=== PATIENT | female | born 1945 | race Caucasian/White ===

== ENCOUNTER 2016-08-20 14:52 | Emergency (ER) | payer MEDICARE ==
[2016-08-20] MEDS ORDERED: Sodium Phosphate ADULT ENEMA* 118 ml bottle PR ONE (15:55)
--- NOTE | 2016-08-20 16:32 | RAD ---
INDICATION: Short of breath COMPARISON: June 21, 2016 TECHNIQUE: An AP portable view obtained at 1608 hours is submitted. FINDINGS: Bones/Soft Tissues: There are no acute bony findings. Cardiomediastinal: The heart is normal in size. The central pulmonary vessels and interstitium are prominent compatible with mild interstitial congestion. Lungs: There are no infiltrates. There is mild hyperinflation. Pleura: There are no pleural effusions. Other: None IMPRESSION: MILD INTERSTITIAL CONGESTION.
[2016-08-20 16:36] LABS: Hematocrit 36 % (35-47); Hemoglobin 11.2 g/dl (12.0-16.0); Mean Corpuscular HGB Conc 31 g/dl (31-36); Mean Corpuscular Hemoglobin 26 pg (27-31); Mean Corpuscular Volume 83 fL (80-97); Mean Platelet Volume 6 um3 (7.4-10.4); Red Blood Count 4.37 10^6/ul (4.0-5.4); Red Cell Distribution Width 22 % (10.5-15); White Blood Count 13.5 10^3/ul (3.5-10.8)
--- NOTE | 2016-08-20 16:38 | RAD ---
Indication: Constipation. Comparison: December 19, 2015 radiographs and November 07, 2015 CT. Technique: Supine and upright views of the abdomen. Report: Elevated lung volumes. Obese body habitus limits assessment. Negative for free air beneath the diaphragm. Large volume of stool throughout the colon. Suggestion of significant rectal distention with formed stool. No dilated small bowel loops evident to indicate obstruction. Calcified uterine fibroid noted LEFT of midline. Negative for mass effect. IMPRESSION: Large volume of retained stool in the colon with suggestion of significant rectal distention with stool.
[2016-08-20 16:53] LABS: Troponin I 0.02 ng/mL (<0.04)
[2016-08-20 16:59] LABS: Albumin 3.5 g/dL (3.2-5.2); BUN/Creatinine Ratio 21.9 (8-20); Calcium 9.1 mg/dL (8.6-10.3); EGFR African American 101.7 (>60); Globulin 2.9 g/dL (2-4); Potassium 3.6 mmol/L (3.5-5.0); Total Bilirubin 0.2 mg/dL (0.2-1.0); Total Protein 6.4 g/dL (6.4-8.9)
[2016-08-20] MEDS ORDERED: Albuterol/Ipratropium NEB.SOL* Albuterol 2.5 MG/Ipratropium 0.5 MG 3 ML INH ONE (17:35)
[2016-08-20] MEDS ORDERED: methylPREDNISolone 125 MG* 2 ML VIAL IV ONE (17:36)
[2016-08-20 18:37] VITALS: BP 139/72
--- NOTE | 2016-08-20 21:43 | ED ---
Renzo Travis Erika, scribed for Ronan Hill MD on 08/20/16 at 1555 . GI/ HPI - HPI Summary HPI Summary: Patient is a 71-year-old female presenting to the ED with a CC of constipation for the past 5 days. Pt states she has tried taking laxatives, drinking more water, eating salads, increasing her fiber, and various other remedies, but none have alleviated the constipation. Pt does state she takes medication that causes constipation. Pt also reports SOB increased from baseline, and reports a Hx COPD for which she is on 4L O2 at home. She also states increased pedal edema , and notes a Hx CHF. Pt denies fever, cough, chest pain, abdominal pain, or any other pain. Pt smokes cigarettes. - History of Current Complaint Chief Complaint: EDGeneral Time Seen by Provider: 08/20/16 15:25 Stated Complaint: CONSTIPATION Hx Obtained From: Patient Onset/Duration: Started Days Ago - 5, Atraumatic, Still Present Timing: Constant Severity: Moderate Pain Intensity: 0 Associated Signs and Symptoms: Positive: Constipation. Negative: Fever, Abdominal Pain Alleviating Factor(s): Nothing - Additional Pertinent History Primary Care Physician: [id number] - Allergy/Home Medications Allergies/Adverse Reactions: Allergies Allergy/AdvReac Type Severity Reaction Status Date / Time Ibuprofen Allergy Unknown Verified 05/03/16 15:57 Reaction Details Rofecoxib [From Vioxx] Allergy Unknown Verified 05/03/16 15:57 Reaction Details PMH/Surg Hx/FS Hx/Imm Hx Endocrine/Hematology History: Reports: Hx Anticoagulant Therapy - xarelto, Hx Diabetes, Hx Anemia Cardiovascular History: Reports: Hx Congestive Heart Failure, Hx Coronary Artery Disease, Hx Hypercholesterolemia, Hx Hypertension, Other Cardiovascular Problems/Disorders - A-Fib, CAD, IDDM, OBESITY Respiratory History: Reports: Hx Asthma, Hx Chronic Obstructive Pulmonary Disease (COPD), Hx Pleural Effusion, Hx Pneumonia, Hx Seasonal Allergies, Hx Sleep Apnea GI History: Reports: Hx Gastrointestinal Bleed Musculoskeletal History: Reports: Hx Arthritis, Hx Back Problems, Other Musculoskeletal History - neck stiffness Sensory History: Reports: Hx Contacts or Glasses Opthamlomology History: Reports: Hx Contacts or Glasses Psychiatric History: Reports: Hx Anxiety, Hx Depression - Surgical History Surgery Procedure, Year, and Place: Knee replacement Hx Anesthesia Reactions: No Infectious Disease History: No Infectious Disease History: Reports: Hx of Known/Suspected MRSA Denies: Hx Clostridium Difficile, Hx Hepatitis, Hx Human Immunodeficiency Virus (HIV), Hx Shingles, Hx Tuberculosis, Hx Known/Suspected VRE, Hx Known/ Suspected VRSA, History Other Infectious Disease, Traveled Outside the [place] in Last 30 Days - Family History Known Family History: Positive: Cardiac Disease - Social History Alcohol Use: None Hx Substance Use: No Substance Use Type: Reports: None Hx Tobacco Use: Yes Smoking Status (MU): Current Every Day Smoker Type: Cigarettes Length of Time of Smoking/Using Tobacco: 52 Have You Smoked in the Last Year: Yes Review of Systems Negative: Fever Negative: Chest Pain Positive: Shortness Of Breath. Negative: Cough Positive: Other - constipation. Negative: Abdominal Pain Positive: Edema - pedal. Negative: Arthralgia, Myalgia All Other Systems Reviewed And Are Negative: Yes Physical Exam - Summary Physical Exam Summary: Constitutional: Comfortable, pleasant, alert HEENT: moist mucosa Neck: Soft, supple, no adenopathy, no edema, no JVD Heart: S1, S2, RRR, no murmurs, rubs, or gallops Lungs: diminished breath sounds throughout, clear, no wheezes, no rales Abdomen: Soft, flat, non-tender, no guarding Extremities: Calves with edema, calves non-tender Neurological: A&Ox3 Psychological: logical, coherent Triage Information Reviewed: Yes Vital Signs On Initial Exam: Initial Vitals Temp Pulse Resp BP Pulse Ox 97.7 F 83 20 130/55 95 08/20/16 14:54 08/20/16 14:54 08/20/16 14:54 08/20/16 14:54 08/20/16 14:54 Vital Signs Reviewed: Yes Diagnostics - Vital Signs Vital Signs Temp Pulse Resp BP Pulse Ox 08/20/16 14:54 97.7 F 83 20 130/55 95 - Laboratory Lab Results: Lab Results 08/20/16 08/20/16 08/20/16 Range/Units 16:20 16:20 16:20 WBC 13.5 H (3.5-10.8) 10^3/ul RBC 4.37 (4.0-5.4) 10^6/ul Hgb 11.2 L (12.0-16.0) g/dl Hct 36 (35-47) % MCV 83 (80-97) fL MCH 26 L (27-31) pg MCHC 31 (31-36) g/dl RDW 22 H (10.5-15) % Plt Count 223 (150-450) 10^3/ul MPV 6 L (7.4-10.4) um3 Neut % (Auto) 86.8 H (38-83) % Lymph % (Auto) 5.4 L (25-47) % [place] % (Auto) 5.0 (1-9) % Eos % (Auto) 2.2 (0-6) % Baso % (Auto) 0.6 (0-2) % Absolute Neuts (auto) 11.7 H (1.5-7.7) 10^3/ul Absolute Lymphs (auto) 0.7 L (1.0-4.8) 10^3/ul Absolute Monos (auto) 0.7 (0-0.8) 10^3/ul Absolute Eos (auto) 0.3 (0-0.6) 10^3/ul Absolute Basos (auto) 0.1 (0-0.2) 10^3/ul Absolute Nucleated RBC 0 10^3/ul Nucleated RBC % 0 Sodium 128 L (133-145) mmol/L Potassium 3.6 (3.5-5.0) mmol/L Chloride 85 L (101-111) mmol/L Carbon Dioxide 41 H* (22-32) mmol/L Anion Gap 2 (2-11) mmol/L BUN 16 (6-24) mg/dL Creatinine 0.73 (0.51-0.95) mg/dL Est GFR ( Amer) 101.7 (>60) Est GFR (Non-Af Amer) 79.0 (>60) BUN/Creatinine Ratio 21.9 H (8-20) Glucose 90 (70-100) mg/dL Calcium 9.1 (8.6-10.3) mg/dL Total Bilirubin 0.20 (0.2-1.0) mg/dL AST 9 L (13-39) U/L ALT 10 (7-52) U/L Alkaline Phosphatase 71 (34-104) U/L Troponin I 0.02 (<0.04) ng/mL B-Natriuretic Peptide 92 ( - 100) pg/mL Total Protein 6.4 (6.4-8.9) g/dL Albumin 3.5 (3.2-5.2) g/dL Globulin 2.9 (2-4) g/dL Albumin/Globulin Ratio 1.2 (1-3) Result Diagrams: 08/20/16 16:20 08/20/16 16:20 Lab Statement: Any lab studies that have been ordered have been reviewed, and results considered in the medical decision making process. - Radiology CXR Radiology Interpretation Completed By: Radiologist - IMPRESSION: MILD INTERSTITIAL CONGESTION. Abd XR Radiology Interpretation Completed By: Radiologist - IMPRESSION: Large volume of retained stool in the colon with suggestion of significant rectal distention with stool. - EKG 18:08 Cardiac Rate: NL - at 83 bpm EKG Rhythm: Sinus Rhythm EKG Interpretation: No ST changes GIGU Course/Dx - Course Assessment/Plan: She has had gradually increased SOB over the past few days. She has a Hx long standing 4L of O2 dependent COPD. Today there is no obvious infection or new pneumonia. She did have some rhonchi on exam though. She also presented for constipation, which has resolved with enema. I believe she is safe for discharge. We will put her on a short course of steroids and azithromycin. She agrees to return immediately for worsening symptoms, worsening SOB, or worsening cardiac symptoms of any kind. - Diagnoses Provider Diagnoses: COPD exacerbation, Constipation Discharge - Discharge Plan Condition: Good Disposition: HOME Prescriptions: Azithromycin TAB* [Zithromax TAB (Z-JOSE M) 250 mg #6 tabs] 2 tab PO .TODAY, THEN 1 DAILY #1 jose m predniSONE TAB* [Deltasone TAB*] 20 mg PO DAILY #12 tab Patient Education Materials: Constipation (ED), Dyspnea (ED) Referrals: Trevor Rhodes MD [Primary Care Provider] - 5 Days The documentation as recorded by the Renzo deluca Erika accurately reflects the service I personally performed and the decisions made by me, Ronan Hill MD.
== END 2016-08-20 18:36 | disposition home or self-care (01) ==
LOC: ED 14:52
DX: J44.1 Chronic obstructive pulmonary disease with (acute) exacerbation (principal); K59.00 Constipation, unspecified; Z99.81 Dependence on supplemental oxygen; I50.9 Heart failure, unspecified; F17.210 Nicotine dependence, cigarettes, uncomplicated; F41.9 Anxiety disorder, unspecified; F32.9 Major depressive disorder, single episode, unspecified; E66.9 Obesity, unspecified; I48.91 Unspecified atrial fibrillation; E11.9 Type 2 diabetes mellitus without complications
CPT/HCPCS: 36415; 71010; 74020; 80053; 83880; 84484; 85025; 93005; 94640; 96365; 99283; A9270-GY; J2930

== ENCOUNTER 2016-12-27 11:47 | Inpatient (IN) | payer MEDICARE ==
[2016-12-27 12:40] LABS: Hematocrit 38 % (35-47); Hemoglobin 11.9 g/dl (12.0-16.0); Mean Corpuscular HGB Conc 31 g/dl (31-36); Mean Corpuscular Hemoglobin 28 pg (27-31); Mean Corpuscular Volume 89 fL (80-97); Mean Platelet Volume 7 um3 (7.4-10.4); Red Blood Count 4.26 10^6/ul (4.0-5.4); Red Cell Distribution Width 16 % (10.5-15); White Blood Count 9.4 10^3/ul (3.5-10.8)
[2016-12-27 12:57] LABS: Troponin I 0.02 ng/mL (<0.04)
[2016-12-27 12:58] LABS: Albumin 3.6 g/dL (3.2-5.2); BUN/Creatinine Ratio 16.5 (8-20); C Reactive Protein 9.61 mg/L (< 5.00); Calcium 8.8 mg/dL (8.6-10.3); EGFR African American 85.3 (>60); EGFR Non-African American 66.3 (>60); Globulin 2.9 g/dL (2-4); Potassium 3.2 mmol/L (3.5-5.0); Total Bilirubin 0.4 mg/dL (0.2-1.0); Total Protein 6.5 g/dL (6.4-8.9)
--- NOTE | 2016-12-27 13:04 | RAD ---
INDICATION: Short of breath COMPARISON: August 20, 2016 TECHNIQUE: An AP portable view obtained at 1240 hours is submitted. FINDINGS: Bones/Soft Tissues: There are no acute bony findings. Cardiomediastinal: The cardiomediastinal silhouette is normal. Lungs: There are no definitive infiltrates but there is mild bibasilar hypoventilation. Suggest two-view follow-up as indicated. Pleura: There are no pleural effusions. Other: None IMPRESSION: MILD BASILAR HYPOVENTILATION. SUGGEST FOLLOW-UP INDICATED CLINICALLY.
[2016-12-27] MEDS ORDERED: Furosemide IV* 10 MG/ML VIAL (40 MG) IV ONE (13:13)
[2016-12-27] MEDS ORDERED: Dextrose 50% Syringe 50 ML* 25 GM/50 ML SYRINGE IV PUSH PRN (14:35)
[2016-12-27] MEDS ORDERED: Acetaminophen TAB* 325 MG PO PRN (14:35)
[2016-12-27] MEDS ORDERED: traZODone TAB* 100 MG PO PRN (14:38)
[2016-12-27] MEDS ORDERED: Cyclobenzaprine TAB* 10 MG PO PRN (14:38)
[2016-12-27] MEDS ORDERED: Albuterol 2.5 MG/3 ML NEB.SOL* (0.083%) INH PRN (14:38)
--- NOTE | 2016-12-27 14:48 | ED ---
I, Joby,Carl, scribed for Evonne Huerta MD on 12/27/16 at 1221 . Shortness of Breath - HPI Summary HPI Summary: This 71 y/o female presents to ED for acute on chronic SOB since 3 days ago. Pt reports that she is "filling up with fluids". Positive increased urination. PMHx includes DM, CHF, COPD with home oxygen use of 4 L, and a-fib. Pt is currently on fluid pills. Primary care involves Dr. 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 FHx is negative for cardiac dz per pt. - History of Current Complaint Chief Complaint: EDShortnessOfBreath Time Seen by Provider: 12/27/16 12:12 Hx Obtained From: Patient, Medical Records Onset/Duration: Gradual Onset Timing: Constant Dyspnea At: Rest Aggrevating Factors: Nothing Alleviating Factors: Nothing Associated Signs & Symptoms: Edema - BLE - Allergy/Home Medications Allergies/Adverse Reactions: Allergies Allergy/AdvReac Type Severity Reaction Status Date / Time Ibuprofen Allergy Unknown Verified 05/03/16 15:57 Reaction Details Rofecoxib [From Vioxx] Allergy Unknown Verified 05/03/16 15:57 Reaction Details PMH/Surg Hx/FS Hx/Imm Hx Endocrine/Hematology History: Reports: Hx Anticoagulant Therapy - xarelto, Hx Diabetes, Hx Anemia Denies: Hx Blood Disorders, Hx Blood Transfusions, Hx Bone Marrow Disease, Hx Systemic Lupus Erythematosus, Hx Sickle Cell Disease, Hx Thyroid Disease, Hx Unexplained Bleeding, Other Endocrine/Hematological Disorders Cardiovascular History: Reports: Hx Congestive Heart Failure, Hx Coronary Artery Disease, Hx Hypercholesterolemia, Hx Hypertension, Other Cardiovascular Problems/Disorders - A-Fib, CAD, IDDM, OBESITY Denies: Hx Aneurysm, Hx Angina, Hx Angioplasty, Hx Auto Implanted Cardiovert Defib, Hx Cardiac Arrest, Hx Cardiomegaly, Hx Congenital Heart Disease, Hx Deep Vein Thrombosis, Hx Embolism, Hx Hypotension, Hx Myocardial Infarction, Hx Pacemaker/ICD, Hx Peripheral Vascular Disease, Hx Rheumatic Fever, Hx Syncope, Hx Valvular Heart Disease Respiratory History: Reports: Hx Asthma, Hx Chronic Obstructive Pulmonary Disease (COPD), Hx Pleural Effusion, Hx Pneumonia, Hx Seasonal Allergies, Hx Sleep Apnea Denies: Hx Chronic Bronchitis, Hx Cystic Fibrosis, Hx Lung Cancer, Hx Pulmonary Edema, Hx Pulmonary Embolism, Other Respiratory Problems/Disorders GI History: Reports: Hx Gastrointestinal Bleed Denies: Hx Cirrhosis, Hx Crohn's Disease, Hx Diverticulosis, Hx Gall Bladder Disease, Hx Gastroesophageal Reflux Disease, Hx Hiatal Hernia, Hx Irritable Bowel, Hx Jaundice, Hx Obstructive Bowel, Hx Ileostomy, Hx Pyloric Stenosis, Hx Ulcer, Other GI Disorders History: Denies: Hx Acute Renal Failure, Hx Benign Prostatic Hyperplasia, Hx Chronic Renal Failure, Hx Dialysis, Hx Kidney Infection, Hx Kidney Stones, Hx Renal Disease, Other Problems/Disorders Musculoskeletal History: Reports: Hx Arthritis, Hx Back Problems, Other Musculoskeletal History - neck stiffness Denies: Hx Bursitis, Hx Congenital Bone Abnormalities, Hx Fibromyalgia, Hx Gout, Hx Orthopedic Injury, Hx Osteoporosis, Hx Scoliosis, Hx Tendonitis Sensory History: Reports: Hx Contacts or Glasses Denies: Hx Cataracts, Hx Eye Injury, Hx Eye Prosthesis, Hx Glaucoma, Hx Legally Blind, Hx Macular Degeneration, Hx Vision Problem, Hx Deafness, Hx Hearing Aid, Hx Hearing Problem, Other Sensory Impairments Opthamlomology History: Reports: Hx Contacts or Glasses Denies: Hx Cataracts, Hx Eye Injury, Hx Eye Prosthesis, Hx Glaucoma, Hx Legally Blind, Hx Macular Degeneration, Hx Vision Problem, Other Sensory Impairments Neurological History: Denies: Hx Dementia, Hx Developmental Delay, Hx Headaches, Hx Migraine, Hx Nerve Disease, Hx Seizures, Hx Spinal Cord Injury, Hx Transient Ischemic Attacks (TIA), Other Neuro Impairments/Disorders Psychiatric History: Reports: Hx Anxiety, Hx Depression - Surgical History Surgery Procedure, Year, and Place: Knee replacement Hx Anesthesia Reactions: No Infectious Disease History: No Infectious Disease History: Reports: Hx of Known/Suspected MRSA Denies: Hx Clostridium Difficile, Hx Hepatitis, Hx Human Immunodeficiency Virus (HIV), Hx Shingles, Hx Tuberculosis, Hx Known/Suspected VRE, Hx Known/ Suspected VRSA, History Other Infectious Disease, Traveled Outside the [place] in Last 30 Days - Family History Known Family History: Positive: Cardiac Disease - Social History Alcohol Use: None Hx Substance Use: No Substance Use Type: Reports: None Hx Tobacco Use: Yes Smoking Status (MU): Current Every Day Smoker Type: Cigarettes Length of Time of Smoking/Using Tobacco: 52 Have You Smoked in the Last Year: Yes Review of Systems Negative: Fever Positive: Shortness Of Breath Positive: other - increased urinary output Positive: Edema - bilat All Other Systems Reviewed And Are Negative: Yes Physical Exam Triage Information Reviewed: Yes Vital Signs On Initial Exam: Initial Vitals Temp Pulse Resp BP Pulse Ox 98.1 F 92 24 146/58 97 12/27/16 11:54 12/27/16 11:54 12/27/16 11:54 12/27/16 11:54 12/27/16 11:54 Vital Signs Reviewed: Yes Appearance: Positive: Well-Appearing, No Pain Distress Skin: Positive: Warm, Skin Color Reflects Adequate Perfusion Head/Face: Positive: Normal Head/Face Inspection Eyes: Positive: EOMI, LISS Neck: Positive: Supple, Nontender Respiratory/Lung Sounds: Positive: Decreased Breath Sounds - bilat, Wheezes - expiratory wheezes Cardiovascular: Positive: RRR, Pulses are Symmetrical in both Upper and Lower Extremities Abdomen Description: Positive: Nontender, Soft Musculoskeletal: Positive: Edema Left - 3+ up to knees, Edema Right - 3+ upto knees Neurological: Positive: Sensory/Motor Intact, Alert, Oriented to Person Place, Time Psychiatric: Positive: Affect/Mood Appropriate AVPU Assessment: Alert Diagnostics - Vital Signs Vital Signs Temp Pulse Resp BP Pulse Ox 12/27/16 12:10 104 29 12/27/16 12:03 24 12/27/16 11:54 98.1 F 92 24 146/58 97 - Laboratory Lab Results: Lab Results 12/27/16 12/27/16 12/27/16 Range/Units 12:15 12:15 12:15 WBC 9.4 (3.5-10.8) 10^3/ul RBC 4.26 (4.0-5.4) 10^6/ul Hgb 11.9 L (12.0-16.0) g/dl Hct 38 (35-47) % MCV 89 (80-97) fL MCH 28 (27-31) pg MCHC 31 (31-36) g/dl RDW 16 H (10.5-15) % Plt Count 224 (150-450) 10^3/ul MPV 7 L (7.4-10.4) um3 Neut % (Auto) 75.5 (38-83) % Lymph % (Auto) 12.4 L (25-47) % [place] % (Auto) 8.5 (1-9) % Eos % (Auto) 2.9 (0-6) % Baso % (Auto) 0.7 (0-2) % Absolute Neuts (auto) 7.1 (1.5-7.7) 10^3/ul Absolute Lymphs (auto) 1.2 (1.0-4.8) 10^3/ul Absolute Monos (auto) 0.8 (0-0.8) 10^3/ul Absolute Eos (auto) 0.3 (0-0.6) 10^3/ul Absolute Basos (auto) 0.1 (0-0.2) 10^3/ul Absolute Nucleated RBC 0.01 10^3/ul Nucleated RBC % 0.1 Sodium 138 (133-145) mmol/L Potassium 3.2 L (3.5-5.0) mmol/L Chloride 90 L (101-111) mmol/L Carbon Dioxide 45 H* (22-32) mmol/L Anion Gap 3 (2-11) mmol/L BUN 14 (6-24) mg/dL Creatinine 0.85 (0.51-0.95) mg/dL Est GFR ( Amer) 85.3 (>60) Est GFR (Non-Af Amer) 66.3 (>60) BUN/Creatinine Ratio 16.5 (8-20) Glucose 102 H (70-100) mg/dL Lactic Acid 1.2 (0.5-2.0) mmol/L Calcium 8.8 (8.6-10.3) mg/dL Total Bilirubin 0.40 (0.2-1.0) mg/dL AST 12 L (13-39) U/L ALT 8 (7-52) U/L Alkaline Phosphatase 69 (34-104) U/L Troponin I 0.02 (<0.04) ng/mL C-Reactive Protein 9.61 H (< 5.00) mg/L B-Natriuretic Peptide ( - 100) pg/mL Total Protein 6.5 (6.4-8.9) g/dL Albumin 3.6 (3.2-5.2) g/dL Globulin 2.9 (2-4) g/dL Albumin/Globulin Ratio 1.2 (1-3) // Range/Units 12:15 WBC (3.5-10.8) 10^3/ul RBC (4.0-5.4) 10^6/ul Hgb (12.0-16.0) g/dl Hct (35-47) % MCV (80-97) fL MCH (27-31) pg MCHC (31-36) g/dl RDW (10.5-15) % Plt Count (150-450) 10^3/ul MPV (7.4-10.4) um3 Neut % (Auto) (38-83) % Lymph % (Auto) (25-47) % [place] % (Auto) (1-9) % Eos % (Auto) (0-6) % Baso % (Auto) (0-2) % Absolute Neuts (auto) (1.5-7.7) 10^3/ul Absolute Lymphs (auto) (1.0-4.8) 10^3/ul Absolute Monos (auto) (0-0.8) 10^3/ul Absolute Eos (auto) (0-0.6) 10^3/ul Absolute Basos (auto) (0-0.2) 10^3/ul Absolute Nucleated RBC 10^3/ul Nucleated RBC % Sodium (133-145) mmol/L Potassium (3.5-5.0) mmol/L Chloride (101-111) mmol/L Carbon Dioxide (22-32) mmol/L Anion Gap (2-11) mmol/L BUN (6-24) mg/dL Creatinine (0.51-0.95) mg/dL Est GFR ( Amer) (>60) Est GFR (Non-Af Amer) (>60) BUN/Creatinine Ratio (8-20) Glucose (70-100) mg/dL Lactic Acid (0.5-2.0) mmol/L Calcium (8.6-10.3) mg/dL Total Bilirubin (0.2-1.0) mg/dL AST (13-39) U/L ALT (7-52) U/L Alkaline Phosphatase (34-104) U/L Troponin I (<0.04) ng/mL C-Reactive Protein (< 5.00) mg/L B-Natriuretic Peptide 79 ( - 100) pg/mL Total Protein (6.4-8.9) g/dL Albumin (3.2-5.2) g/dL Globulin (2-4) g/dL Albumin/Globulin Ratio (1-3) Result Diagrams: 12/27/16 12:15 12/27/16 12:15 Lab Statement: Any lab studies that have been ordered have been reviewed, and results considered in the medical decision making process. - Radiology CXR Xray Interpretation: Positive (See Comments) - MILD BASILAR HYPOVENTILATION. SUGGEST FOLLOW-UP INDICATED CLINICALLY. Radiology Interpretation Completed By: Radiologist - EKG 1148 Cardiac Rate: Tachycardia EKG Rhythm: Sinus Tachycardia Ectopy: PACs EKG Comparison: No Significant Change - Otherwise unchaged from 08/20/2016 Course/Dx - Course Course Of Treatment: 71 yo female with copd and diastolic chf with worsened sob and lower ext edema, case was discussed with Dr. Rich for admission - Diagnoses Provider Diagnoses: SOB (shortness of breath) - Physician Notifications Discussed Care of Patient With: Dr. Rich (Hospitalist) at 1313 PM Time Discussed With Above Provider: 13:13 Instructed by Provider To: Admit As Inpatient - Critical Care Time Critical Care Time: 30-74 min Discharge - Discharge Plan Condition: Stable Disposition: [facility]ITTED TO [facility] The documentation as recorded by the Joby deluca Soohyun accurately reflects the service I personally performed and the decisions made by me, Evonne Huerta MD.
[2016-12-27] MEDS ORDERED: Potassium Chlor TAB* 20 MEQ TAB.ER PO ONE (14:53)
[2016-12-27] MEDS ORDERED: Nicotine PATCH 14 MG/24 HR* PATCH TRANSDERM SCH (15:00)
[2016-12-27] MEDS ORDERED: Albuterol/Ipratropium NEB.SOL* Albuterol 2.5 MG/Ipratropium 0.5 MG 3 ML INH SCH (15:00)
[2016-12-27] MEDS: ceFAZolin VIAL(*) 1 GM in NS 0.9% 50 ML* 50 ML IVPB SCH ×2 (17:17→23:13)
[2016-12-27] MEDS: Atorvastatin* 10 MG TAB PO SCH (17:17)
[2016-12-27] MEDS: Nicotine PATCH 14 MG/24 HR* PATCH TRANSDERM SCH (17:18)
[2016-12-27] MEDS: Insulin LISPRO* 1 UNITS UNIT SUBCUT SCH (17:24)
[2016-12-27] MEDS: Mometasone/Formoter 200/5 MDI INH SCH (20:18)
[2016-12-27] MEDS ORDERED: clonazePAM TAB(*) 1 MG PO PRN (21:00)
--- NOTE | 2016-12-27 21:04 | HP ---
HISTORY AND PHYSICAL: DATE OF ADMISSION: 12/27/16 PRIMARY CARE PROVIDER: Dr. Rhodes. ATTENDING PHYSICIAN WHILE IN THE HOSPITAL: Dr. Jessica Rich* (report being dictated by Vadim Quevedo NP). CHIEF COMPLAINT: 1. Shortness of breath. 2. Lower leg swelling. HISTORY OF PRESENT ILLNESS: Ms. Sabillon is a 71-year-old female patient with multiple medical problems with a history of CHF, COPD, diabetes, anemia, AFib, GI bleed in the past, depression, KEVON, and hyperlipidemia. She comes in and says that over the last 2 to 3 days, she has had progressive worsening swelling in her legs, starting in her feet, going up to almost her thighs and to the point now where she has been having worsening shortness of breath. She says that she has been taking her fluid pills as prescribed. She actually doubled them the last couple of days, but this has not been helping. She says she was concerned because her breathing was getting worse. So, she decided to come in. She says she could not lie flat, but this is not a new finding for her. She said that she was having difficulty with ambulation because she was more short of breath and the swelling in the legs was painful. She denied any fevers or chills. She denied having any cough or sore throat. No rhinorrhea and not having any productive cough. She said the shortness of breath got worse the last couple of days and she thinks she has gained about, she said, 40 pounds in the last 2 to 3 days, but she is not sure of that. She denies having any chest pain. She says that she has been drinking fluids heavily, particularly water, but despite this, she has continued to get worse. So, she decided to come in to the ER today. She was evaluated. There was concern because it appeared that she was in heart failure. So, the hospitalist service was asked to evaluate for admission. PAST MEDICAL HISTORY: Significant for: 1. CHF. 2. COPD. 3. Diabetes. 4. Anemia. 5. AFib. 6. GI bleed. 7. Depression. 8. KEVON. 9. Hyperlipidemia. PAST SURGICAL HISTORY: The patient has had a total knee arthroplasty. MEDICATIONS: Her home medications, again, this is from an old list. I did ask the patient to bring in. I tried talking to the pharmacy, but I was unsuccessful. Include: 1. Trazodone 200 mg at bedtime as needed. 2. Tramadol 50 mg every 6 hours as needed. 3. Prednisone 10 mg daily, she also has an order for 20 mg daily, but she says she thinks she is on 10. 4. Metformin 500 mg p.o. b.i.d. 5. Glipizide 2.5 mg daily. 6. Klonopin 1 mg at bedtime as needed. 7. Spiriva 1 capsule inhaled daily. 8. Zocor 20 mg daily. 9. Xarelto 20 mg daily. 10. Potassium 20 mEq p.o. b.i.d. 11. MiraLAX 17 g p.o. daily. 12. Prilosec 20 mg daily. 13. Dulera 2 puffs inhaled b.i.d. 14. Ferrous sulfate 1 to 2 tabs p.o. daily. 15. Colace 100 mg p.o. b.i.d. 16. Diltiazem CD 120 mg p.o. daily. 17. Flexeril 10 mg daily every 8 hours as needed. 18. Celexa 20 mg daily. 19. Bumex 2 mg in the morning, 1 mg at bedtime. 20. Z-Israel, which she has completed. 21. Aspirin 81 mg a day. 22. Ventolin 1 puff inhaled every 4 hours. ALLERGIES TO MEDICATIONS: Include IBUPROFEN and VIOXX. FAMILY HISTORY: The mother had a history of cirrhosis. Father had a history of cancer. SOCIAL HISTORY: The patient is a [id number]-a-day smoker. She has been smoking for 50 plus years. She denies any alcohol abuse. Denies any recreational drug use. Surrogate decision maker is her daughter. REVIEW OF SYSTEMS: There is no documented fever. She did admit to having weight change. There was no double vision. There is no ear discharge. She denied having any rhinorrhea. No sore throat. No thyroid enlargement. Denies having any chest pain. There was no orthopnea, no nocturnal dyspnea. There was no abdominal pain. No nausea, no vomiting. No dysuria, no frequency. There was no loss of consciousness. No pruritus and no skin ulcerations. Review of 14 systems completed, all others negative. PHYSICAL EXAMINATION GENERAL: At this time, Ms. Tapia is a 71-year-old female patient. She is sitting in the ER stretcher. She is chronically ill appearing. VITAL SIGNS: Reveal blood pressure 118/55 with a pulse of 105, respirations 24 , O2 sat 97%, and temperature 98.1. HEENT: Head is atraumatic and normocephalic. Eyes: EOMs intact. Sclerae are anicteric and not pale. Throat: Oral mucosa appears to be dry. No oropharyngeal erythema. NECK: Supple. LUNGS: Diminished in the bases. She had a wheezing in the upper lobes with equal diaphragmatic expansion. HEART: Sounds S1, S2. Irregularly irregular rate. No murmurs, rubs, or gallops. ABDOMEN: Soft, flat, and nontender. Bowel sounds present. EXTREMITIES: She had +3 pitting edema in the ankles going up to just below her knees. She had bilateral lower extremity erythema and warmth. She had 5/5 strength. NEUROLOGIC: The patient is awake, alert, and oriented x3. Tongue midline. Flexboard Operator were equal. No gross focal deficits. SKIN: Grossly intact. DIAGNOSTIC STUDIES/LAB DATA: Today revealed WBC 9.4, RBC of 4.26, hemoglobin 11.9, hematocrit of 38, platelet count 224. The sodium was 138, potassium was 3.2, chloride of 90, bicarb 45, her BUN was 14, creatinine 0.85, glucose 102, lactate 1.2, calcium 8.8. Total bilirubin 0.4, AST 12, ALT 8, alk phos 69. Troponin 0.02. BNP is 79. Albumin of 3.6. She had an EKG obtained today, which appeared to me to be atrial fibrillation with a rate of 95. No ST elevation or T-wave inversions were noted. She had an echo that was done back in 2014, which revealed an EF of greater than 65%. Chest x-ray obtained today revealed mild bibasilar hyperventilation, suggest followup as clinically indicated. Old medical records were reviewed. ASSESSMENT AND PLAN: Ms. Sabillon is a 71-year-old female patient with multiple medical problems coming in to the ER today with complaints of shortness of breath and weight gain and leg swelling, on evaluation, was concerned by the ER. She will be admitted under inpatient status for: 1. Congestive heart failure: Suspect the reason she is feeling short of breath is probably that she has a congestive heart failure exacerbation. My plan at this point is to go ahead and give her IV Lasix. She got 40 now which she is responding to down here. I will give another 40 tomorrow. We will get daily weights, cycle her troponins, repeat the echo, and continue to follow. 2. Chronic obstructive pulmonary disease: She does have a little bit of a wheeze on exam. I will continue her baseline steroids, Dulera, and I will put her on standing nebulizers for the time being. 3. Diabetes: We will go ahead and put her on the sliding scale. 4. Anemia: We will follow her H and H. 5. Atrial fibrillation: Her rate appears to be controlled. We will continue the Xarelto. In addition to this, we will give her potassium because she does have a little bit of hypokalemia. We will get that up to 4. I did order some potassium for that. We will continue her diltiazem and Xarelto. 6. History of gastrointestinal bleed: We will monitor. 7. DVT prophylaxis: She is on Xarelto. 8. Depression: Supportive care. 9. Obstructive sleep apnea: She does not wear a CPAP at night. 10. Hyperlipidemia: Continue statin therapy. 11. Code status: She is a full code. 12. Fluids, electrolytes, and nutrition: She can have a heart-healthy diet. 13. Question of cellulitis. She does have some erythema to bilateral lower extremities. It is probably related to the swelling, but they were pretty warm on exam here today. I do think I am going to go ahead and put her on Ancef to see if this helps improve. I will continue to monitor. TIME SPENT: On the admission was approximately 60 minutes; greater than half the time was spent [id number] with the patient obtaining my history and physical, other half the time spent going over the plan of care with the patient and implementing plan of care. I did discuss the plan of care with my attending, Dr. Rich; she is in agreement. VADIM QUEVEDO NP CC: Dr. Rhodes* [id number]/[facility] #: [id number] [facility]OSPITALCharles
[2016-12-27] MEDS: Docusate CAP* 100 MG PO SCH (23:11)
[2016-12-27] MEDS: Nicotine Patch Removal NOTE FOLLOW UP SCH (23:13)
[2016-12-28 05:46] LABS: Hematocrit 33 % (35-47); Hemoglobin 10.5 g/dl (12.0-16.0); Mean Corpuscular HGB Conc 32 g/dl (31-36); Mean Corpuscular Hemoglobin 28 pg (27-31); Mean Corpuscular Volume 89 fL (80-97); Mean Platelet Volume 6 um3 (7.4-10.4); Red Blood Count 3.73 10^6/ul (4.0-5.4); Red Cell Distribution Width 16 % (10.5-15); White Blood Count 7.5 10^3/ul (3.5-10.8)
[2016-12-28] MEDS: ceFAZolin VIAL(*) 1 GM in NS 0.9% 50 ML* 50 ML IVPB SCH ×3 (07:32→22:40)
[2016-12-28] MEDS: Mometasone/Formoter 200/5 MDI INH SCH ×2 (08:07→19:55)
[2016-12-28] MEDS: Nicotine PATCH 14 MG/24 HR* PATCH TRANSDERM SCH (08:08)
[2016-12-28] MEDS: Insulin LISPRO* 1 UNITS UNIT SUBCUT SCH ×3 (08:08→17:47)
[2016-12-28] MEDS: Docusate CAP* 100 MG PO SCH ×2 (08:28→22:40)
[2016-12-28] MEDS: Diltiazem CD CAP* 120 MG PO SCH (08:28)
[2016-12-28] MEDS: Omeprazole CAP* 20 MG PO SCH (08:28)
[2016-12-28] MEDS: predniSONE TAB* 10 MG PO SCH (08:28)
[2016-12-28] MEDS: Aspirin EC Low Dose* 81 MG TAB.EC PO SCH (08:28)
[2016-12-28] MEDS: Citalopram TAB* 20 MG PO SCH (08:28)
[2016-12-28] MEDS: Rivaroxaban TAB(*) 20 MG TAB PO SCH (08:29)
[2016-12-28] MEDS ORDERED: Furosemide IV* 10 MG/ML VIAL (40 MG) IV SCH (09:00)
[2016-12-28 11:14] LABS: BUN/Creatinine Ratio 15.4 (8-20); Calcium 8.2 mg/dL (8.6-10.3); EGFR African American 94.2 (>60); EGFR Non-African American 73.2 (>60)
--- NOTE | 2016-12-28 13:19 | PN ---
Subjective Date of Service: 12/28/16 Interval History: Feels better, less SOB, less leg edema, legs much less red. No new c/o. Objective Active Medications: Acetaminophen (Tylenol Tab*) 650 mg PO Q4H PRN PRN Reason: FEVER/PAIN Albuterol (Ventolin 2.5 Mg/3 Ml Neb.Zaria*) 2.5 mg INH Q2H PRN PRN Reason: SOB/WHEEZING Aspirin (Aspirin Ec Low Dose*) 81 mg PO DAILY [facility] Last Admin: 12/28/16 08:28 Dose: 81 mg Atorvastatin Calcium (Lipitor*) 10 mg PO QPM [facility] Last Admin: 12/27/16 17:17 Dose: 10 mg Citalopram Hydrobromide (Celexa Tab*) 20 mg PO DAILY [facility] Last Admin: 12/28/16 08:28 Dose: 20 mg Clonazepam (Klonopin Tab(*)) 1 mg PO BEDTIME PRN PRN Reason: ANXIETY Cyclobenzaprine HCl (Flexeril Tab*) 10 mg PO Q8HR PRN PRN Reason: SPASMS Last Admin: 12/27/16 17:16 Dose: 10 mg Dextrose (D50w Syringe 50 Ml*) 12.5 gm IV PUSH .FOR FS < 60 - SS PRN PRN Reason: FS < 60 Diltiazem HCl (Cardizem Cd Cap*) 120 mg PO DAILY [facility] Last Admin: 12/28/16 08:28 Dose: 120 mg Docusate Sodium (Colace Cap*) 100 mg PO BID [facility] Last Admin: 12/28/16 08:28 Dose: 100 mg Furosemide (Lasix Iv*) 40 mg IV ONCE ONE Stop: 12/28/16 14:01 Cefazolin Sodium 1 gm/ Sodium (Chloride) 50 mls @ 200 mls/hr IVPB Q8H [facility] Last Admin: 12/28/16 07:32 Dose: 200 mls/hr Insulin Human Lispro (Humalog*) 0 units SUBCUT AC [facility] PRN Reason: Protocol Last Admin: 12/28/16 08:08 Dose: Not Given Mometasone Furoate/Formoterol Fumar (Dulera 200/5 Mdi*) 2 puff INH BID [facility] Last Admin: 12/28/16 08:07 Dose: 2 puff Nicotine (Nicotine Patch 14 Mg/24 Hr*) 1 patch TRANSDERM 0800 [facility] Last Admin: 12/28/16 08:08 Dose: 1 patch Omeprazole (Prilosec Cap*) 20 mg PO 0730 [facility] Last Admin: 12/28/16 08:28 Dose: 20 mg Pharmacy Profile Note (Nicotine Patch Removal Note*) 1 note FOLLOW UP 2100 [facility] Last Admin: 12/27/16 23:13 Dose: 1 note Prednisone (Deltasone Tab*) 10 mg PO DAILY [facility] Last Admin: 12/28/16 08:28 Dose: 10 mg Rivaroxaban (Xarelto (*)) 20 mg PO DAILY [facility] Last Admin: 12/28/16 08:29 Dose: 20 mg Trazodone HCl (Desyrel Tab*) 200 mg PO BEDTIME PRN PRN Reason: SLEEP Vital Signs 12/27/16 12/27/16 12/27/16 14:34 17:16 19:16 Temperature 98.2 F Pulse Rate 92 Respiratory 20 16 16 Rate Blood Pressure 135/57 (mmHg) O2 Sat by Pulse 99 Oximetry 12/27/16 12/27/16 12/27/16 20:00 20:21 20:28 Temperature 97.9 F Pulse Rate 87 87 Respiratory 16 20 18 Rate Blood Pressure 116/51 (mmHg) O2 Sat by Pulse 99 99 Oximetry 12/28/16 12/28/16 12/28/16 00:37 04:28 07:25 Temperature 98.3 F 98.9 F 98.6 F Pulse Rate 85 87 88 Respiratory 20 20 18 Rate Blood Pressure 110/48 108/41 118/46 (mmHg) O2 Sat by Pulse 97 96 94 Oximetry 12/28/16 12/28/16 12/28/16 08:00 08:09 11:19 Temperature 98.6 F Pulse Rate 92 89 Respiratory 18 16 18 Rate Blood Pressure 112/47 (mmHg) O2 Sat by Pulse 92 96 Oximetry Oxygen Devices in Use Now: Nasal Cannula Appearance: Alert, in a chiar. In good spirits. Looks comfortable. Eyes: No Scleral Icterus Neck: NL Appearance and Movements; NL JVP, No Thyroid Enlargement, Masses, - - short neck Respiratory: Symmetrical Chest Expansion and Respiratory Effort, Clear to Percussion, - - mild to mod rhonchi all lung trejo. Extremities: No Clubbing, Cyanosis, - - 3+ - 4+ edema both lower legs Neurological: Alert and Oriented x 3, NL Sensation Result Diagrams: 12/28/16 05:27 12/28/16 05:27 Additional Lab and Data: Lab Results 12/27/16 12/27/16 12/27/16 Range/Units 12:15 12:15 12:15 WBC 9.4 (3.5-10.8) 10^3/ul RBC 4.26 (4.0-5.4) 10^6/ul Hgb 11.9 L (12.0-16.0) g/dl Hct 38 (35-47) % MCV 89 (80-97) fL MCH 28 (27-31) pg MCHC 31 (31-36) g/dl RDW 16 H (10.5-15) % Plt Count 224 (150-450) 10^3/ul MPV 7 L (7.4-10.4) um3 Neut % (Auto) 75.5 (38-83) % Lymph % (Auto) 12.4 L (25-47) % [place] % (Auto) 8.5 (1-9) % Eos % (Auto) 2.9 (0-6) % Baso % (Auto) 0.7 (0-2) % Absolute Neuts (auto) 7.1 (1.5-7.7) 10^3/ul Absolute Lymphs (auto) 1.2 (1.0-4.8) 10^3/ul Absolute Monos (auto) 0.8 (0-0.8) 10^3/ul Absolute Eos (auto) 0.3 (0-0.6) 10^3/ul Absolute Basos (auto) 0.1 (0-0.2) 10^3/ul Absolute Nucleated RBC 0.01 10^3/ul Nucleated RBC % 0.1 Sodium 138 (133-145) mmol/L Potassium 3.2 L (3.5-5.0) mmol/L Chloride 90 L (101-111) mmol/L Carbon Dioxide 45 H* (22-32) mmol/L Anion Gap 3 (2-11) mmol/L BUN 14 (6-24) mg/dL Creatinine 0.85 (0.51-0.95) mg/dL Est GFR ( Amer) 85.3 (>60) Est GFR (Non-Af Amer) 66.3 (>60) BUN/Creatinine Ratio 16.5 (8-20) Glucose 102 H (70-100) mg/dL Lactic Acid 1.2 (0.5-2.0) mmol/L Calcium 8.8 (8.6-10.3) mg/dL Total Bilirubin 0.40 (0.2-1.0) mg/dL AST 12 L (13-39) U/L ALT 8 (7-52) U/L Alkaline Phosphatase 69 (34-104) U/L Troponin I 0.02 (<0.04) ng/mL C-Reactive Protein 9.61 H (< 5.00) mg/L B-Natriuretic Peptide ( - 100) pg/mL Total Protein 6.5 (6.4-8.9) g/dL Albumin 3.6 (3.2-5.2) g/dL Globulin 2.9 (2-4) g/dL Albumin/Globulin Ratio 1.2 (1-3) 05/29/17 Range/Units 12:15 WBC (3.5-10.8) 10^3/ul RBC (4.0-5.4) 10^6/ul Hgb (12.0-16.0) g/dl Hct (35-47) % MCV (80-97) fL MCH (27-31) pg MCHC (31-36) g/dl RDW (10.5-15) % Plt Count (150-450) 10^3/ul MPV (7.4-10.4) um3 Neut % (Auto) (38-83) % Lymph % (Auto) (25-47) % [place] % (Auto) (1-9) % Eos % (Auto) (0-6) % Baso % (Auto) (0-2) % Absolute Neuts (auto) (1.5-7.7) 10^3/ul Absolute Lymphs (auto) (1.0-4.8) 10^3/ul Absolute Monos (auto) (0-0.8) 10^3/ul Absolute Eos (auto) (0-0.6) 10^3/ul Absolute Basos (auto) (0-0.2) 10^3/ul Absolute Nucleated RBC 10^3/ul Nucleated RBC % Sodium (133-145) mmol/L Potassium (3.5-5.0) mmol/L Chloride (101-111) mmol/L Carbon Dioxide (22-32) mmol/L Anion Gap (2-11) mmol/L BUN (6-24) mg/dL Creatinine (0.51-0.95) mg/dL Est GFR ( Amer) (>60) Est GFR (Non-Af Amer) (>60) BUN/Creatinine Ratio (8-20) Glucose (70-100) mg/dL Lactic Acid (0.5-2.0) mmol/L Calcium (8.6-10.3) mg/dL Total Bilirubin (0.2-1.0) mg/dL AST (13-39) U/L ALT (7-52) U/L Alkaline Phosphatase (34-104) U/L Troponin I (<0.04) ng/mL C-Reactive Protein (< 5.00) mg/L B-Natriuretic Peptide 79 ( - 100) pg/mL Total Protein (6.4-8.9) g/dL Albumin (3.2-5.2) g/dL Globulin (2-4) g/dL Albumin/Globulin Ratio (1-3) Assess/Plan/Problems-Billing Assessment: - Patient Problems (1) Congestive heart failure (CHF) Current Visit: No Status: Acute Priority: High Code(s): I50.9 - HEART FAILURE, UNSPECIFIED SNOMED Code(s): 33913068 Comment: Acute on chronic diastolic CHF. Good response to IV furosemide. Pt reports good diuresis with po bumetanide at home. Second dose IF fuorsoemide 12/28, start bumetanide 4 mg bid on 12/29. I instructed her to weigh herself every day at home. She only occasionally weighs her self at home. (2) COPD (chronic obstructive pulmonary disease) Current Visit: No Status: Acute Code(s): J44.9 - CHRONIC OBSTRUCTIVE PULMONARY DISEASE, UNSPECIFIED SNOMED Code(s): 44534206 Comment: - Continue bronchodilators and inhaled steroids, prednisone. (3) Cellulitis and abscess of leg Current Visit: No Status: Acute Code(s): L02.419 - CUTANEOUS ABSCESS OF LIMB , UNSPECIFIED; L03.119 - CELLULITIS OF UNSPECIFIED PART OF LIMB SNOMED Code(s) : 145118020 Comment: Not clear if erythema due to cellulitis or to her severe edema. Continue cefazolin, plan a few days of po cephalexin on discharge. (4) Tobacco abuse Current Visit: No Status: Chronic Priority: Medium Code(s): Z72.0 - TOBACCO USE SNOMED Code(s): 715306250 Comment: Pt advised to quit smoking and avoid second hand smoke. (5) Morbid exogenous obesity Current Visit: No Status: Acute Code(s): E66.01 - MORBID (SEVERE) OBESITY DUE TO EXCESS CALORIES SNOMED Code(s): 863843334 Comment: BMI 44.1.
[2016-12-28] MEDS ORDERED: Perflutren Lipid Microsphere* 3 ML VIAL ONE (13:29)
[2016-12-28] MEDS ORDERED: Furosemide IV* 10 MG/ML VIAL (40 MG) IV ONE (14:00)
--- NOTE | 2016-12-28 14:48 | ECHO ---
Patient: MASON BARRETO [facility] Rec#: [id number] : 1945 Date: 12/28/2016 Age: 71y Height: 154.94 cm / 61.0 in Weight: 96.62 kg / 213.0 lbs Sex: F BSA: 1.94 Room#: 440 Admit Date#: 12/27/2016 Type: Inpatient Referring: Vadim Quevedo NP Reading: Jarret Spencer MD [employer] Executive: Renee Hook RDCS CC: Lj Lockett DO CC: Trevor Rhodes MD Transthoracic Echocardiogram Indication: CHF BP: 118/46 HR: 84 Rhythm: NSR Findings History: CHF,COPD,DM,anemia,HLD,KEVON. Technical Comments: The study is technically limited due to patient body habitus. Completed at 1419. The study is technically limited due to the patient's history of COPD. Left Ventricle: The left ventricular chamber size is normal. Mild concentric left ventricular hypertrophy is observed. Global left ventricular wall motion and contractility are within normal limits. There is normal left ventricular systolic function. The estimated ejection fraction is 55-60%. Abnormal left ventricular diastolic function is observed. Left Atrium: The left atrial chamber size is normal. Right Ventricle: The right ventricular cavity size is normal. The right ventricular global systolic function is normal. Right Atrium: The right atrial cavity size is normal. Aortic Valve: The aortic valve is trileaflet. The aortic valve leaflets are mildly thickened. There is no evidence of aortic regurgitation. There is mild aortic stenosis. Highest aortic valve velocity was acquired with Pedoff in apical position. Mitral Valve: There is mitral annular calcification. There is trace to mild mitral regurgitation. There is no evidence of mitral stenosis. Tricuspid Valve: The tricuspid valve leaflets are normal. There is no evidence of tricuspid valve regurgitation. Unable to estimate the right ventricular systolic pressure. There is no tricuspid stenosis. Pulmonic Valve: The pulmonic valve appears normal. There is a trace pulmonic regurgitation. There is no pulmonic stenosis. Pericardium: A pericardial fat pad is visualized. Aorta: There is no dilatation of the ascending aorta. The aortic arch is not well visualized. There is no dilation of the aortic root. Pulmonary Artery: The main pulmonary artery is not well visualized. Venous: The venous system is not well visualized. Contrast: Definity was used to optimize study. A total of 3ml used. Intravenous contrast was used to enhance endocardial border definition. Summary: There are no significant changes when compared to the previous study done on 06/24/15 Conclusions Mild concentric left ventricular hypertrophy is observed. Global left ventricular wall motion and contractility are within normal limits. There is normal left ventricular systolic function. The estimated ejection fraction is 55-60%. The right ventricular global systolic function is normal. There is no evidence of aortic regurgitation. There is mild aortic stenosis. There is trace to mild mitral regurgitation. There is no evidence of tricuspid valve regurgitation. Unable to estimate the right ventricular systolic pressure. There is no dilatation of the ascending aorta. Measurements Name Value Normal Range RVIDd (AP) 2D 2.8 cm (0.9 - 2.6) RVDdMajor (2D) 3 cm (2.2 - 4.4) RAd ISD 4CH 5 cm (3.4 - 4.9) RA (A4C)W 4 cm (2.9 - 4.6) IVSd (2D) 1.1 cm (0.6 - 1) LVPWd (2D) 1.1 cm (0.6 - 1) LVIDd (2D) 3.5 cm (3.6 - 5.4) LVIDs (2D) 2.3 cm - LV FS (2D) 35 % (25 - 45) Aortic Annulus 1.8 cm (1.4 - 2.6) Ao root diameter (2D) 2.7 cm (2.1 - 3.5) Ascending Ao 2.2 cm (2.1 - 3.4) LA dimension (AP) 2D 3.5 cm (2.3 - 3.8) LAd ISD 4CH 6.1 cm (2.9 - 5.3) LA ISD 4CH W 3.7 cm (2.5 - 4.5) Name Value Normal Range LA ESV SP 4CH (A/L) 47 ml - LA ESV SP 2CH (A/L) 49 ml - LA ESV BP (A/L) 49 ml - LA ESV BP (A/L) index 25.48 ml/m2 - LA ESV SP 4CH (MOD) 44 ml - LA ESV SP 2CH (MOD) 47 ml - Name Value Normal Range MV E-wave Vmax 1.5 m/sec - MV deceleration time 196 msec - MV A-wave Vmax 1.5 m/sec - MV E:A ratio 1.07 ratio - LV septal e' Vmax 0.08 m/sec - LV lateral e' Vmax 0.11 m/sec - LV E:e' septal ratio 18.75 ratio - LV E:e' lateral ratio 13.63 ratio - Name Value Normal Range AV Vmax 2.2 m/sec - AV VTI 49.2 cm - AV peak gradient 18.77 mmHg - AV mean gradient 7.54 mmHg - LVOT diameter 1.8 cm - LVOT Vmax 1.2 m/sec - LVOT VTI 25.2 cm - LVOT peak gradient 5.31 mmHg - LVOT mean gradient 2.55 mmHg - KAMILA (continuity Vmax) 1.4 cm2 - KAMILA (continuity VTI) 1.3 cm2 - Name Value Normal Range PV Vmax 0.9 m/sec - PV peak gradient 3.48 mmHg -
[2016-12-28] MEDS: Atorvastatin* 10 MG TAB PO SCH (17:47)
[2016-12-28] MEDS: Nicotine Patch Removal NOTE FOLLOW UP SCH (22:54)
[2016-12-29] MEDS ORDERED: Bumetanide TAB* 2 MG PO SCH (07:30)
[2016-12-29] MEDS: ceFAZolin VIAL(*) 1 GM in NS 0.9% 50 ML* 50 ML IVPB SCH (08:03)
[2016-12-29] MEDS: Nicotine PATCH 14 MG/24 HR* PATCH TRANSDERM SCH (08:03)
[2016-12-29] MEDS: Omeprazole CAP* 20 MG PO SCH (08:04)
[2016-12-29] MEDS: predniSONE TAB* 10 MG PO SCH (08:04)
[2016-12-29] MEDS: Citalopram TAB* 20 MG PO SCH (08:04)
[2016-12-29] MEDS: Docusate CAP* 100 MG PO SCH (08:04)
[2016-12-29] MEDS: Rivaroxaban TAB(*) 20 MG TAB PO SCH (08:04)
[2016-12-29] MEDS: Diltiazem CD CAP* 120 MG PO SCH (08:04)
[2016-12-29] MEDS: Bumetanide TAB* 2 MG PO SCH ×2 (08:04→08:05)
[2016-12-29] MEDS: Aspirin EC Low Dose* 81 MG TAB.EC PO SCH (08:04)
[2016-12-29] MEDS: Insulin LISPRO* 1 UNITS UNIT SUBCUT SCH ×3 (08:05→17:22)
[2016-12-29] MEDS: Mometasone/Formoter 200/5 MDI INH SCH (08:51)
--- NOTE | 2016-12-29 13:00 | DCNOTE ---
Subjective Date of Service: 12/29/16 Interval History: Feels much better today, not SOB. She slept well last night. She has a hospital bed at home and always sleeps with her head elevated. She reports a good urine outpur after today's AM dose of bumentanide. Objective Active Medications: Acetaminophen (Tylenol Tab*) 650 mg PO Q4H PRN PRN Reason: FEVER/PAIN Albuterol (Ventolin 2.5 Mg/3 Ml Neb.Zaria*) 2.5 mg INH Q2H PRN PRN Reason: SOB/WHEEZING Aspirin (Aspirin Ec Low Dose*) 81 mg PO DAILY PENDING SALE TO [facility] Last Admin: 12/29/16 08:04 Dose: 81 mg Atorvastatin Calcium (Lipitor*) 10 mg PO QPM PENDING SALE TO [facility] Last Admin: 12/28/16 17:47 Dose: 10 mg Bumetanide (Bumex Tab*) 4 mg PO BID PENDING SALE TO [facility] Last Admin: 12/29/16 08:05 Dose: 4 mg Citalopram Hydrobromide (Celexa Tab*) 20 mg PO DAILY PENDING SALE TO [facility] Last Admin: 12/29/16 08:04 Dose: 20 mg Clonazepam (Klonopin Tab(*)) 1 mg PO BEDTIME PRN PRN Reason: ANXIETY Cyclobenzaprine HCl (Flexeril Tab*) 10 mg PO Q8HR PRN PRN Reason: SPASMS Last Admin: 12/27/16 17:16 Dose: 10 mg Dextrose (D50w Syringe 50 Ml*) 12.5 gm IV PUSH .FOR FS < 60 - SS PRN PRN Reason: FS < 60 Diltiazem HCl (Cardizem Cd Cap*) 120 mg PO DAILY PENDING SALE TO [facility] Last Admin: 12/29/16 08:04 Dose: 120 mg Docusate Sodium (Colace Cap*) 100 mg PO BID PENDING SALE TO [facility] Last Admin: 12/29/16 08:04 Dose: 100 mg Glipizide (Glucotrol Xl*) 2.5 mg PO QAM PENDING SALE TO [facility] Cefazolin Sodium 1 gm/ Sodium (Chloride) 50 mls @ 200 mls/hr IVPB Q8H PENDING SALE TO [facility] Last Admin: 12/29/16 08:03 Dose: 200 mls/hr Insulin Human Lispro (Humalog*) 0 units SUBCUT AC PENDING SALE TO [facility] PRN Reason: Protocol Last Admin: 12/29/16 12:30 Dose: 2 units Metformin HCl (Glucophage*) 500 mg PO BID PENDING SALE TO [facility] Mometasone Furoate/Formoterol Fumar (Dulera 200/5 Mdi*) 2 puff INH BID PENDING SALE TO [facility] Last Admin: 12/29/16 08:51 Dose: 2 puff Nicotine (Nicotine Patch 14 Mg/24 Hr*) 1 patch TRANSDERM 0800 PENDING SALE TO [facility] Last Admin: 12/29/16 08:03 Dose: 1 patch Omeprazole (Prilosec Cap*) 20 mg PO 0730 PENDING SALE TO [facility] Last Admin: 12/29/16 08:04 Dose: 20 mg Pharmacy Profile Note (Nicotine Patch Removal Note*) 1 note FOLLOW UP 2100 PENDING SALE TO [facility] Last Admin: 12/28/16 22:54 Dose: 1 note Prednisone (Deltasone Tab*) 10 mg PO DAILY PENDING SALE TO [facility] Last Admin: 12/29/16 08:04 Dose: 10 mg Rivaroxaban (Xarelto (*)) 20 mg PO DAILY PENDING SALE TO [facility] Last Admin: 12/29/16 08:04 Dose: 20 mg Trazodone HCl (Desyrel Tab*) 200 mg PO BEDTIME PRN PRN Reason: SLEEP Vital Signs 12/28/16 12/28/16 12/28/16 15:24 19:39 19:58 Temperature 98.4 F 97.9 F Pulse Rate 79 80 81 Respiratory 20 24 Rate Blood Pressure 123/46 119/48 (mmHg) O2 Sat by Pulse 96 99 98 Oximetry 12/28/16 12/28/16 12/29/16 20:00 23:54 05:18 Temperature 98.5 F 98.4 F Pulse Rate 81 77 Respiratory 24 16 Rate Blood Pressure 112/52 115/48 (mmHg) O2 Sat by Pulse 99 99 Oximetry 12/29/16 12/29/16 12/29/16 07:42 08:00 11:04 Temperature 98.2 F 97.4 F Pulse Rate 86 87 89 Respiratory 20 18 22 Rate Blood Pressure 111/60 128/54 (mmHg) O2 Sat by Pulse 98 98 94 Oximetry Oxygen Devices in Use Now: Nasal Cannula Appearance: Alert, in a chair. In good spirits. Looks comfortable. Neck: NL Appearance and Movements; NL JVP, No Thyroid Enlargement, Masses Respiratory: Symmetrical Chest Expansion and Respiratory Effort, Clear to Auscultation, Clear to Percussion Cardiovascular: NL Sounds; No Murmurs; No JVD, RRR, No Edema, - Extremities: No Clubbing, Cyanosis, - - 3+ edema both lower legs. Skin: No Rash or Ulcers, No Nodules or Sclerosis Neurological: Alert and Oriented x 3, NL Sensation Result Diagrams: 12/28/16 05:27 12/28/16 05:27 Additional Lab and Data: Lab Results 12/27/16 12/27/16 12/27/16 Range/Units 12:15 12:15 12:15 WBC 9.4 (3.5-10.8) 10^3/ul RBC 4.26 (4.0-5.4) 10^6/ul Hgb 11.9 L (12.0-16.0) g/dl Hct 38 (35-47) % MCV 89 (80-97) fL MCH 28 (27-31) pg MCHC 31 (31-36) g/dl RDW 16 H (10.5-15) % Plt Count 224 (150-450) 10^3/ul MPV 7 L (7.4-10.4) um3 Neut % (Auto) 75.5 (38-83) % Lymph % (Auto) 12.4 L (25-47) % [place] % (Auto) 8.5 (1-9) % Eos % (Auto) 2.9 (0-6) % Baso % (Auto) 0.7 (0-2) % Absolute Neuts (auto) 7.1 (1.5-7.7) 10^3/ul Absolute Lymphs (auto) 1.2 (1.0-4.8) 10^3/ul Absolute Monos (auto) 0.8 (0-0.8) 10^3/ul Absolute Eos (auto) 0.3 (0-0.6) 10^3/ul Absolute Basos (auto) 0.1 (0-0.2) 10^3/ul Absolute Nucleated RBC 0.01 10^3/ul Nucleated RBC % 0.1 Sodium 138 (133-145) mmol/L Potassium 3.2 L (3.5-5.0) mmol/L Chloride 90 L (101-111) mmol/L Carbon Dioxide 45 H* (22-32) mmol/L Anion Gap 3 (2-11) mmol/L BUN 14 (6-24) mg/dL Creatinine 0.85 (0.51-0.95) mg/dL Est GFR ( Amer) 85.3 (>60) Est GFR (Non-Af Amer) 66.3 (>60) BUN/Creatinine Ratio 16.5 (8-20) Glucose 102 H (70-100) mg/dL Lactic Acid 1.2 (0.5-2.0) mmol/L Calcium 8.8 (8.6-10.3) mg/dL Total Bilirubin 0.40 (0.2-1.0) mg/dL AST 12 L (13-39) U/L ALT 8 (7-52) U/L Alkaline Phosphatase 69 (34-104) U/L Troponin I 0.02 (<0.04) ng/mL C-Reactive Protein 9.61 H (< 5.00) mg/L B-Natriuretic Peptide ( - 100) pg/mL Total Protein 6.5 (6.4-8.9) g/dL Albumin 3.6 (3.2-5.2) g/dL Globulin 2.9 (2-4) g/dL Albumin/Globulin Ratio 1.2 (1-3) 05/29/17 Range/Units 12:15 WBC (3.5-10.8) 10^3/ul RBC (4.0-5.4) 10^6/ul Hgb (12.0-16.0) g/dl Hct (35-47) % MCV (80-97) fL MCH (27-31) pg MCHC (31-36) g/dl RDW (10.5-15) % Plt Count (150-450) 10^3/ul MPV (7.4-10.4) um3 Neut % (Auto) (38-83) % Lymph % (Auto) (25-47) % [place] % (Auto) (1-9) % Eos % (Auto) (0-6) % Baso % (Auto) (0-2) % Absolute Neuts (auto) (1.5-7.7) 10^3/ul Absolute Lymphs (auto) (1.0-4.8) 10^3/ul Absolute Monos (auto) (0-0.8) 10^3/ul Absolute Eos (auto) (0-0.6) 10^3/ul Absolute Basos (auto) (0-0.2) 10^3/ul Absolute Nucleated RBC 10^3/ul Nucleated RBC % Sodium (133-145) mmol/L Potassium (3.5-5.0) mmol/L Chloride (101-111) mmol/L Carbon Dioxide (22-32) mmol/L Anion Gap (2-11) mmol/L BUN (6-24) mg/dL Creatinine (0.51-0.95) mg/dL Est GFR ( Amer) (>60) Est GFR (Non-Af Amer) (>60) BUN/Creatinine Ratio (8-20) Glucose (70-100) mg/dL Lactic Acid (0.5-2.0) mmol/L Calcium (8.6-10.3) mg/dL Total Bilirubin (0.2-1.0) mg/dL AST (13-39) U/L ALT (7-52) U/L Alkaline Phosphatase (34-104) U/L Troponin I (<0.04) ng/mL C-Reactive Protein (< 5.00) mg/L B-Natriuretic Peptide 79 ( - 100) pg/mL Total Protein (6.4-8.9) g/dL Albumin (3.2-5.2) g/dL Globulin (2-4) g/dL Albumin/Globulin Ratio (1-3) Assess/Plan/Problems-Billing Assessment: - Patient Problems (1) Congestive heart failure (CHF) Current Visit: No Status: Acute Priority: High Code(s): I50.9 - HEART FAILURE, UNSPECIFIED SNOMED Code(s): 05538247 Comment: Acute on chronic diastolic CHF. Good response to IV furosemide. Pt reports good diuresis with po bumetanide today. Pt agrees to weigh herself every day at home. If she gains weight she can take an extra 2 bumetanide. If she gains weight I would add metolazone. BMP 01/03. (2) COPD (chronic obstructive pulmonary disease) Current Visit: No Status: Acute Code(s): J44.9 - CHRONIC OBSTRUCTIVE PULMONARY DISEASE, UNSPECIFIED SNOMED Code(s): 18981340 Comment: - Continue bronchodilators and inhaled steroids, prednisone. (3) Cellulitis and abscess of leg Current Visit: No Status: Acute Code(s): L02.419 - CUTANEOUS ABSCESS OF LIMB , UNSPECIFIED; L03.119 - CELLULITIS OF UNSPECIFIED PART OF LIMB SNOMED Code(s) : 819810272 Comment: Not clear if erythema due to cellulitis or to her severe edema. Complete therapy with 5 days of po cephalexin as outpt. (4) Tobacco abuse Current Visit: No Status: Chronic Priority: Medium Code(s): Z72.0 - TOBACCO USE SNOMED Code(s): 015053857 Comment: Pt again advised to quit smoking and avoid second hand smoke. (5) Morbid exogenous obesity Current Visit: No Status: Acute Code(s): E66.01 - MORBID (SEVERE) OBESITY DUE TO EXCESS CALORIES SNOMED Code(s): 135640579 Comment: BMI 44.1. Status and Disposition: Discharge now. Fup Dr. Rhodes. BMP 01/03.
--- NOTE | 2016-12-29 13:08 | PN ---
Progress Note - Progress Note Note: Ti9me spent on discharge 45 minutes.
[2016-12-29] MEDS ORDERED: Cephalexin CAP* 500 MG PO SCH (14:00)
[2016-12-29 15:20] VITALS: BP 125/47
[2016-12-29] MEDS ORDERED: metFORMIN* 500 MG TAB PO SCH (21:00)
--- NOTE | 2016-12-30 00:41 | DS ---
DISCHARGE SUMMARY: DATE OF ADMISSION: DATE OF DISCHARGE: 12/29/16 HOSPITAL COURSE: This 71-year-old woman presented with shortness of breath and leg swelling. History is detailed in the admission note. She has a long history of CHF, COPD, diabetes, atrial fib and obstructive sleep apnea. She had worsening swelling for 2 or 3 days. She took some extra fluid pills, but this did not help. She could not lie down flat. I note she does have a hospital bed at home. The rest of the history is detailed in the admission note. The patient responded well to furosemide 40 mg IV. She got a total of 3 doses considering insensible loss, she had negative fluid balance every day. Today, she had 2 doses of IV furosemide. She had a urine output of 3150. On 12/28/16, her BUN was 12 and creatinine 0.78, potassium was 4.0, sodium 140. The patient felt much better after the modest diuresis. I think the basurto to her maintaining her is having her weigh herself daily at home, write down the weights. She is instructed to take 2 extra bumetanide if the weight goes up more than 3 pounds, she will increase her home bumetanide from one and a half twice daily to two twice daily. If she seems to be gaining weight or perhaps more weight loss is desirable, I would add metolazone. She will get a BMP on . FINAL DIAGNOSES: 1. Acute on chronic diastolic congestive heart failure. 2. Chronic obstructive pulmonary disease. 3. Cellulitis of leg. 4. Tobacco abuse. 5. Morbid obesity. DISCHARGE MEDICATIONS: 1. Bumetanide 4 mg b.i.d. 2. Cephalexin 500 mg t.i.d. for 5 days. 3. Aspirin 81 mg daily. 4. Metformin 500 mg b.i.d. 5. Glipizide XL 2.5 mg daily. 6. Ferrous sulfate as directed. 7. Citalopram 20 mg daily. 8. Omeprazole 20 mg daily. 9. Potassium chloride 30 mEq b.i.d. 10. Cyclobenzaprine 10 mg every 8 hours p.r.n. 11. Tiotropium 1 capsule daily. 12. Clonazepam 1 mg h.s. p.r.n. 13. Tramadol every 6 hours p.r.n. 14. Prednisone 10 mg daily. 15. Polyethylene glycol 17 g daily. 16. Albuterol inhaler 2 puffs every 4 hours p.r.n. 17. Trazodone 1 to 2 at bedtime as needed. 18. Simvastatin 20 mg h.s. 19. Nystatin suspension as directed. 20. Diltiazem 120 mg daily. 21. Metolazone 2.5 mg as directed. 22. Fluticasone/salmeterol 100/50 one puff b.i.d. 23. Theophylline as directed. CC: Dr. Rhodes* [id number]/CPS #: [id number] MTDD
[2016-12-30] MEDS ORDERED: glipiZIDE TAB.XL* 2.5 MG PO SCH (09:00)
== END 2016-12-29 17:30 | disposition home health service (06) | DRG 292 ==
LOC: ED 11:47 → MEDTELE 13:59
PROVIDERS: ADMIT Hospitalist; ATTEND Internal Medicine
DX: I11.0 Hypertensive heart disease with heart failure (principal); L03.119 Cellulitis of unspecified part of limb; Z99.81 Dependence on supplemental oxygen; I48.91 Unspecified atrial fibrillation; L02.419 Cutaneous abscess of limb, unspecified; Z68.41 Body mass index [BMI] 40.0-44.9, adult; E11.9 Type 2 diabetes mellitus without complications; J44.9 Chronic obstructive pulmonary disease, unspecified; E66.01 Morbid (severe) obesity due to excess calories; I50.33 Acute on chronic diastolic (congestive) heart failure; I25.10 Atherosclerotic heart disease of native coronary artery without angina pectoris; E78.00 Pure hypercholesterolemia, unspecified; M19.90 Unspecified osteoarthritis, unspecified site; F41.9 Anxiety disorder, unspecified; F32.9 Major depressive disorder, single episode, unspecified; Z96.659 Presence of unspecified artificial knee joint; F17.210 Nicotine dependence, cigarettes, uncomplicated; G47.33 Obstructive sleep apnea (adult) (pediatric); E78.5 Hyperlipidemia, unspecified; D64.9 Anemia, unspecified; Z88.6 Allergy status to analgesic agent; Z88.8 Allergy status to other drugs, medicaments and biological substances; Z87.01 Personal history of pneumonia (recurrent); Z82.49 Family history of ischemic heart disease and other diseases of the circulatory system; Z80.9 Family history of malignant neoplasm, unspecified; Z83.79 Family history of other diseases of the digestive system; Z79.82 Long term (current) use of aspirin; Z79.84 Long term (current) use of oral hypoglycemic drugs; Z79.52 Long term (current) use of systemic steroids
CPT/HCPCS: 36415; 71010; 80048; 80053; 83605; 83880; 84484; 85025; 85610; 86140; 87040; 93005; 93306; 94640; 94760; 99406; A9270-GY; C8929; J0690; J1940; J7512

== ENCOUNTER 2017-02-03 21:07 | Observation (INO) | payer MEDICARE ==
[2017-02-03] MEDS ORDERED: methylPREDNISolone 125 MG* 2 ML VIAL IV ONE (21:12)
[2017-02-03] MEDS ORDERED: Albuterol/Ipratropium NEB.SOL* Albuterol 2.5 MG/Ipratropium 0.5 MG 3 ML INH ONE (21:12)
--- NOTE | 2017-02-03 21:22 | ED ---
Jared Travis Rebecca, scribed for Wilfrid Fisher MD on 02/03/17 at 2114 . HPI Chest Pain - HPI Summary HPI Summary: Pt is a 71 y/o F BIBA who presents to ED c/o CP. Pain began at 1730 today, was constant since onset and is currently not present, ranking pain as 0/10. Sx characterized as tightness. Sx alleviated by NTG at home and ASA (324 mg) en route by EMS, aggravated by nothing. Additionally c/o SOB characterized as dyspnea at rest. PMHx COPD. Uses constant 4 L o2 per Os at home, though she was on 6L O2 while en route to [facility]. - History of Current Complaint Hx Obtained From: Patient, EMS Onset/Duration: Started Hours Ago - 3.5 hours [facility], Resolved Time of Onset: 17:30 Timing: Constant Current Severity: None Pain Intensity: 0 Pain Scale Used: 0-10 Numeric Character: Tightness Aggravating Factor(s): Nothing Alleviating Factor(s): NTG 123, OTC Meds - 324 mg ASA Associated Signs and Symptoms: Positive: Shortness of Breath - Additional Pertinent History Primary Care Physician: JUHI - Allergy/Home Medications Allergies/Adverse Reactions: Allergies Allergy/AdvReac Type Severity Reaction Status Date / Time Ibuprofen Allergy Unknown Verified 02/03/17 21:48 Reaction Details Rofecoxib [From Vioxx] Allergy Unknown Verified 02/03/17 21:48 Reaction Details PMH/Surg Hx/FS Hx/Imm Hx Endocrine/Hematology History: Reports: Hx Anticoagulant Therapy - xarelto, Hx Diabetes, Hx Anemia Denies: Hx Blood Disorders, Hx Blood Transfusions, Hx Bone Marrow Disease, Hx Systemic Lupus Erythematosus, Hx Sickle Cell Disease, Hx Thyroid Disease, Hx Unexplained Bleeding, Other Endocrine/Hematological Disorders Cardiovascular History: Reports: Hx Congestive Heart Failure, Hx Coronary Artery Disease, Hx Hypercholesterolemia, Hx Hypertension, Other Cardiovascular Problems/Disorders - A-Fib, CAD, IDDM, OBESITY Denies: Hx Aneurysm, Hx Angina, Hx Angioplasty, Hx Auto Implanted Cardiovert Defib, Hx Cardiac Arrest, Hx Cardiomegaly, Hx Congenital Heart Disease, Hx Deep Vein Thrombosis, Hx Embolism, Hx Hypotension, Hx Myocardial Infarction, Hx Pacemaker/ICD, Hx Peripheral Vascular Disease, Hx Rheumatic Fever, Hx Syncope, Hx Valvular Heart Disease Respiratory History: Reports: Hx Asthma, Hx Chronic Obstructive Pulmonary Disease (COPD), Hx Pleural Effusion, Hx Pneumonia, Hx Seasonal Allergies, Hx Sleep Apnea Denies: Hx Chronic Bronchitis, Hx Cystic Fibrosis, Hx Lung Cancer, Hx Pulmonary Edema, Hx Pulmonary Embolism, Other Respiratory Problems/Disorders GI History: Reports: Hx Gastrointestinal Bleed Denies: Hx Cirrhosis, Hx Crohn's Disease, Hx Diverticulosis, Hx Gall Bladder Disease, Hx Gastroesophageal Reflux Disease, Hx Hiatal Hernia, Hx Irritable Bowel, Hx Jaundice, Hx Obstructive Bowel, Hx Ileostomy, Hx Pyloric Stenosis, Hx Ulcer, Other GI Disorders History: Denies: Hx Acute Renal Failure, Hx Benign Prostatic Hyperplasia, Hx Chronic Renal Failure, Hx Dialysis, Hx Kidney Infection, Hx Kidney Stones, Hx Renal Disease, Other Problems/Disorders Musculoskeletal History: Reports: Hx Arthritis, Hx Back Problems, Other Musculoskeletal History - neck stiffness Denies: Hx Bursitis, Hx Congenital Bone Abnormalities, Hx Fibromyalgia, Hx Gout, Hx Orthopedic Injury, Hx Osteoporosis, Hx Scoliosis, Hx Tendonitis Sensory History: Reports: Hx Contacts or Glasses Denies: Hx Cataracts, Hx Eye Injury, Hx Eye Prosthesis, Hx Glaucoma, Hx Legally Blind, Hx Macular Degeneration, Hx Vision Problem, Hx Deafness, Hx Hearing Aid, Hx Hearing Problem, Other Sensory Impairments Opthamlomology History: Reports: Hx Contacts or Glasses Denies: Hx Cataracts, Hx Eye Injury, Hx Eye Prosthesis, Hx Glaucoma, Hx Legally Blind, Hx Macular Degeneration, Hx Vision Problem, Other Sensory Impairments Neurological History: Denies: Hx Dementia, Hx Developmental Delay, Hx Headaches, Hx Migraine, Hx Nerve Disease, Hx Seizures, Hx Spinal Cord Injury, Hx Transient Ischemic Attacks (TIA), Other Neuro Impairments/Disorders Psychiatric History: Reports: Hx Anxiety, Hx Depression - Surgical History Surgery Procedure, Year, and Place: Knee replacement Hx Anesthesia Reactions: No Infectious Disease History: Reports: Hx of Known/Suspected MRSA Denies: Hx Clostridium Difficile, Hx Hepatitis, Hx Human Immunodeficiency Virus (HIV), Hx Shingles, Hx Tuberculosis, Hx Known/Suspected VRE, Hx Known/ Suspected VRSA, History Other Infectious Disease - Family History Known Family History: Positive: Cardiac Disease - Social History Alcohol Use: None Hx Substance Use: No Substance Use Type: Reports: None Hx Tobacco Use: Yes Smoking Status (MU): Current Every Day Smoker Type: Cigarettes Length of Time of Smoking/Using Tobacco: 52 Have You Smoked in the Last Year: Yes Review of Systems Positive: Chest Pain - resolved Positive: Shortness Of Breath All Other Systems Reviewed And Are Negative: Yes Physical Exam Triage Information Reviewed: Yes Vital Signs On Initial Exam: Initial Vitals Temp Pulse Resp BP Pulse Ox 98.5 F 145 20 135/108 97 02/03/17 21:10 02/03/17 21:10 02/03/17 21:10 02/03/17 21:10 02/03/17 21:10 Vital Signs Reviewed: Yes Appearance: Positive: Ill-Appearing - moderate sob Skin: Positive: Warm Head/Face: Positive: Normal Head/Face Inspection Eyes: Positive: LISS ENT: Positive: Hearing grossly normal Neck: Positive: Supple Respiratory/Lung Sounds: Positive: Decreased Breath Sounds, Wheezes - scattered diffuse exp with prolonged expiration Cardiovascular: Positive: IRR, Tachycardia Abdomen Description: Positive: Nontender, Soft Bowel Sounds: Positive: Present Musculoskeletal: Positive: Strength/ROM Intact Neurological: Positive: Alert, Oriented to Person Place, Time Psychiatric: Positive: Affect/Mood Appropriate Diagnostics - Vital Signs Vital Signs Temp Pulse Resp BP Pulse Ox 02/03/17 21:14 150 135/108 97 02/03/17 21:10 98.5 F 145 20 135/108 97 - Laboratory Result Diagrams: 02/03/17 21:25 02/03/17 21:25 Lab Statement: Any lab studies that have been ordered have been reviewed, and results considered in the medical decision making process. - Radiology CXR Xray Interpretation: No Acute Changes - Consistent with COPD. No infiltrate. Radiology Interpretation Completed By: ED Physician - EKG 2116 Cardiac Rate: Tachycardia - 161 bpm EKG Rhythm: Atrial Fibrillation EKG Interpretation: Atrial fibrillation with rapid ventricular response Re-Evaluation - Re-Evaluation First Eval Re-Evaluation Time: 00:13 Comment: Pt was sleeping upon reevaluation. Second Eval Re-Evaluation Time: 02:00 Comment: Pt continues to sleep. improved at rest, upon ambulation pt became sob and tachycaerdic, will admit, d/w hospitalist Chest Pain Course/Dx - Course Assessment/Plan: Pt is a 71 y/o F BIBA who presents to ED c/o CP characterized as tightness since 1729. Pain is currently not present, ranking pain as 0/10. Sx alleviated by NTG at home and ASA (324 mg) en route by EMS, aggravated by nothing. Additionally c/o SOB characterized as dyspnea at rest. PMHx COPD. Uses constant 4 L o2 per Os at home, though she was on 6L O2 while en route to [facility]. Discussed care of pt with Dr. Oscar who accepts pt for admission. She will be admitted with Dx of COPD exacerbation. She understands and agrees. - Diagnoses Provider Diagnoses: COPD exacerbation - Provider Notifications Discussed Care Of Patient With: Chavo Oscar Time Discussed With Above Provider: 02:15 Instructed by Provider To: Other - Accepts pt for admission - Critical Care Time Critical Care Time: 30-74 min Discharge - Discharge Plan Condition: Fair Disposition: [facility]MITT[facility] TO [facility] The documentation as recorded by the Jared deluca Rebecca accurately reflects the service I personally performed and the decisions made by me, Wilfrid Fisher MD.
[2017-02-03] MEDS: Diltiazem IV* 5 MG/ML 5 ML VIAL (for loading dose/IV Push) (25 MG) IV SLOW PU ONE ×2 (21:30→21:36)
[2017-02-03 21:44] LABS: Hematocrit 37 % (35-47); Hemoglobin 11.6 g/dl (12.0-16.0); Mean Corpuscular HGB Conc 31 g/dl (31-36); Mean Corpuscular Hemoglobin 28 pg (27-31); Mean Corpuscular Volume 88 fL (80-97); Mean Platelet Volume 7 um3 (7.4-10.4); Red Blood Count 4.18 10^6/ul (4.0-5.4); Red Cell Distribution Width 15 % (10.5-15); White Blood Count 12.1 10^3/ul (3.5-10.8)
[2017-02-03 21:55] LABS: Albumin 3.6 g/dL (3.2-5.2); BUN/Creatinine Ratio 25.8 (8-20); Calcium 9.1 mg/dL (8.6-10.3); EGFR African American 76.9 (>60); EGFR Non-African American 59.8 (>60); Potassium 3.9 mmol/L (3.5-5.0); Total Bilirubin 0.3 mg/dL (0.2-1.0); Total Protein 6.6 g/dL (6.4-8.9)
[2017-02-03 22:41] LABS: Urine Bacteria Absent (Absent); Urine Bilirubin Negative (Negative); Urine Glucose 2+(150 mg/dL) (Negative); Urine Nitrite Negative (Negative)
--- NOTE | 2017-02-04 02:34 | HP ---
H&P (Free Text) History and Physical: PCP: Stephanie Rhodes MD Date/Time of Evaluation: 02/04/2017 0220 CC: SOB HPI: Mrs Sabillon is a 71YO female HX pAFIB, CHF, COPD, & DM2 who was in her usual state of health until ~1800 when she was cleaning up after dinner and developed rapid onset of SOB & non-radiating chest tightness. There was some slight tremulousness, but no N/V, palpitations, light-headedness, F/C, cough, congestion, or other issues. The symptoms progressed until she became concerned enough to call EMS and present for evaluation. PMedHx DM2 CHF COPD on 4-5L NC oxygen continuously pAFIB on rivaroxaban GI bleed anemia HLD KEVON depression Ambulatory Orders Nursing to reconcile. Aspirin EC Low Dose* [Ecotrin EC Low Dose 81 MG*] 81 mg PO DAILY 05/06/15 glipiZIDE TAB.XL* [Glucotrol Xl*] 2.5 mg PO QAM 06/09/15 metFORMIN* [Glucophage 500 MG TAB *] 500 mg PO BID 06/09/15 Citalopram TAB* [Celexa TAB*] 20 mg PO DAILY 06/23/15 Ferrous Sulfate TAB* 325 - 650 mg PO DAILY 06/23/15 Omeprazole CAP* [Prilosec CAP* 20 MG] 20 mg PO DAILY 06/23/15 Cyclobenzaprine TAB* [Flexeril 10 MG TAB*] 10 mg PO Q8HR PRN 08/04/15 Potassium Chlor TAB* [Klor Con ER TAB 10 MEQ*] 30 meq PO BID 08/04/15 Tiotropium CAP.INH* [Spiriva CAP.INH*] 1 cap.inh INH DAILY 08/04/15 traMADol TAB* [Ultram*] 50 mg PO Q6HR PRN #12 tab MDD 4 05/03/16 predniSONE TAB* [Deltasone TAB*] 10 mg PO DAILY 06/21/16 Albuterol HFA INHALER* [Ventolin HFA Inhaler*] 2 puff INH Q4HR PRN 12/28/16 Betamethasone Emily 0.1% CM(NF) [Valisone 0.1% CM(NF)] 1 applic TOPICAL BID Diltiazem HCl Coated Beads [Cartia Xt] 120 mg PO DAILY 12/28/16 Docusate CAP* [Colace Cap*] 100 mg PO BID PRN 12/28/16 Fluticasone-Salmeterol 500-50* [Advair Diskus 500-50*] 1 puff INH BID 12/28/16 Gabapentin CAP(*) [Neurontin 300 CAP(*)] 1 cap PO SEE INSTRUCTIONS PRN 12/28/16 Levalbuterol HFA INHALER* [Xopenex Hfa Inhaler*] 2 puff INH Q4HR PRN 12/28/16 Metolazone TAB* [Zaroxolyn TAB*] 2.5 mg PO SEE INSTRUCTIONS 12/28/16 Nystatin SUSPENSION* 1 dose PO QID 12/28/16 Polyethylene Glycol 3350* [Miralax*] 1 dose PO DAILY 12/28/16 Simvastatin [Zocor 40 MG (NF)] 20 mg PO BEDTIME 12/28/16 Theophylline [Theophylline ER] 1 tab PO BID 12/28/16 clonazePAM TAB(*) [Klonopin TAB(*)] 1 mg PO BEDTIME 12/28/16 traZODone TAB* [Desyrel TAB*] 1 - 2 tab PO BEDTIME PRN 12/28/16 Bumetanide TAB* [Bumex 2 MG TAB*] 4 mg PO BID #120 tab 12/29/16 Cephalexin CAP* [Keflex 500 CAP*] 500 mg PO TID #15 cap 12/29/16 Nicotine PATCH 14 MG/24 HR* 1 patch TRANSDERM 0800 patch 12/29/16 Rivaroxaban TAB(*) [Xarelto 20 mg] 20 mg PO DAILY #0 tab 12/29/16 Allergies Ibuprofen Allergy (Verified 02/03/17 21:48) Unknown Reaction Details Rofecoxib [From Vioxx] Allergy (Verified 02/03/17 21:48) Unknown Reaction Details PSurgHx L TKA SocHx: 4 cigarettes daily w/ ~25PYHX, no alcohol or recreational drugs; , lives alone, daughter lives in [place]; full code trial of intubation FamHx: Mother: age 55 2nd alcoholic cirrhosis; Father: age 80 2nd unknown cancer ROS: as above, otherwise reviewed and all were negative Constitutional: NAD, normally developed, morbidly obese female vitals: Vital Signs Temp 36.9 C 02/03/17 21:15 Pulse 104 02/04/17 02:09 Resp 19 02/04/17 02:09 BP 122/52 02/04/17 02:00 Pulse Ox 86 02/04/17 02:09 Intake & Output 02/03/17 02/03/17 02/04/17 11:59 23:59 11:59 Weight 108.409 kg HEENM: atraumatic; sclera/conjunctiva: non-icteric/clear; hearing: clinically intact; oropharynx: clear, mucosa moist Neck: soft tissue: non-tender; thyroid: normal Pulmonary: diminished B with mid- to end-expiratory wheeze, fair aeration, no accessory muscle use CV: TIR/IR, normal S1S2, no carotid bruit, no jugular venous distention, 2+ B DP /PT, 1+ BLE edema Abdominal: soft, non-distended, non-tender, no rebound/guarding/rigidity, normoactive bowel sounds, no hepatosplenomegaly or masses, no costovertebral angle tenderness Musculoskeletal: general: grossly intact, no overt deformity or tenderness Integumental: normal appearance and texture of exposed skin Psychiatric orientation: AA&O to PPS affect: calm mood: cooperative eye contact: good to fair content: reliable responses: timely insight: good Testing: Lab Results 02/03/17 02/03/17 02/03/17 Range/Units 21:25 21:25 21:25 WBC 12.1 H (3.5-10.8) 10^3/ul RBC 4.18 (4.0-5.4) 10^6/ul Hgb 11.6 L (12.0-16.0) g/dl Hct 37 (35-47) % MCV 88 (80-97) fL MCH 28 (27-31) pg MCHC 31 (31-36) g/dl RDW 15 (10.5-15) % Plt Count 235 (150-450) 10^3/ul MPV 7 L (7.4-10.4) um3 Neut % (Auto) 86.0 H (38-83) % Lymph % (Auto) 6.6 L (25-47) % Levy % (Auto) 6.0 (1-9) % Eos % (Auto) 1.1 (0-6) % Baso % (Auto) 0.3 (0-2) % Absolute Neuts (auto) 10.4 H (1.5-7.7) 10^3/ul Absolute Lymphs (auto) 0.8 L (1.0-4.8) 10^3/ul Absolute Monos (auto) 0.7 (0-0.8) 10^3/ul Absolute Eos (auto) 0.1 (0-0.6) 10^3/ul Absolute Basos (auto) 0 (0-0.2) 10^3/ul Absolute Nucleated RBC 0.01 10^3/ul Nucleated RBC % 0.1 Sodium 133 (133-145) mmol/L Potassium 3.9 (3.5-5.0) mmol/L Chloride 87 L (101-111) mmol/L Carbon Dioxide 40 H (22-32) mmol/L Anion Gap 6 (2-11) mmol/L BUN 24 (6-24) mg/dL Creatinine 0.93 (0.51-0.95) mg/dL Est GFR ( Amer) 76.9 (>60) Est GFR (Non-Af Amer) 59.8 (>60) BUN/Creatinine Ratio 25.8 H (8-20) Glucose 301 H (70-100) mg/dL Lactic Acid 1.7 (0.5-2.0) mmol/L Calcium 9.1 (8.6-10.3) mg/dL Total Bilirubin 0.30 (0.2-1.0) mg/dL AST 10 L (13-39) U/L ALT 9 (7-52) U/L Alkaline Phosphatase 83 (34-104) U/L Total Protein 6.6 (6.4-8.9) g/dL Albumin 3.6 (3.2-5.2) g/dL Globulin 3.0 (2-4) g/dL Albumin/Globulin Ratio 1.2 (1-3) Urine Color Urine Appearance Urine pH (5-9) Ur Specific [place] (1.010-1.030) Urine Protein (Negative) Urine Ketones (Negative) Urine Blood (Negative) Urine Nitrate (Negative) Urine Bilirubin (Negative) Urine Urobilinogen (Negative) Ur Leukocyte Esterase (Negative) Urine WBC (Auto) (Absent) Urine RBC (Auto) (Absent) Ur Squamous Epith Cells (Absent) Urine Bacteria (Absent) Urine Glucose (Negative) 02/03/17 Range/Units 22:20 WBC (3.5-10.8) 10^3/ul RBC (4.0-5.4) 10^6/ul Hgb (12.0-16.0) g/dl Hct (35-47) % MCV (80-97) fL MCH (27-31) pg MCHC (31-36) g/dl RDW (10.5-15) % Plt Count (150-450) 10^3/ul MPV (7.4-10.4) um3 Neut % (Auto) (38-83) % Lymph % (Auto) (25-47) % Levy % (Auto) (1-9) % Eos % (Auto) (0-6) % Baso % (Auto) (0-2) % Absolute Neuts (auto) (1.5-7.7) 10^3/ul Absolute Lymphs (auto) (1.0-4.8) 10^3/ul Absolute Monos (auto) (0-0.8) 10^3/ul Absolute Eos (auto) (0-0.6) 10^3/ul Absolute Basos (auto) (0-0.2) 10^3/ul Absolute Nucleated RBC 10^3/ul Nucleated RBC % Sodium (133-145) mmol/L Potassium (3.5-5.0) mmol/L Chloride (101-111) mmol/L Carbon Dioxide (22-32) mmol/L Anion Gap (2-11) mmol/L BUN (6-24) mg/dL Creatinine (0.51-0.95) mg/dL Est GFR ( Amer) (>60) Est GFR (Non-Af Amer) (>60) BUN/Creatinine Ratio (8-20) Glucose (70-100) mg/dL Lactic Acid (0.5-2.0) mmol/L Calcium (8.6-10.3) mg/dL Total Bilirubin (0.2-1.0) mg/dL AST (13-39) U/L ALT (7-52) U/L Alkaline Phosphatase (34-104) U/L Total Protein (6.4-8.9) g/dL Albumin (3.2-5.2) g/dL Globulin (2-4) g/dL Albumin/Globulin Ratio (1-3) Urine Color Straw Urine Appearance Clear Urine pH 6.0 (5-9) Ur Specific [place] 1.006 L (1.010-1.030) Urine Protein Negative (Negative) Urine Ketones Negative (Negative) Urine Blood Negative (Negative) Urine Nitrate Negative (Negative) Urine Bilirubin Negative (Negative) Urine Urobilinogen Negative (Negative) Ur Leukocyte Esterase 2+ H (Negative) Urine WBC (Auto) 1+(6-10/hpf) H (Absent) Urine RBC (Auto) Absent (Absent) Ur Squamous Epith Cells Present H (Absent) Urine Bacteria Absent (Absent) Urine Glucose 2+(150 mg/dl) H (Negative) ECG, personally reviewed: AFIB rate 161, diffuse non-diagnostic ST-T changes CXR, personally reviewed: no obvious acute process Impression: 71F presenting in AFIB/RVR DIAGNOSIS & PLAN Primary AFIB/RVR : telemetry : diltiazem bolus given in ED, start GTT : supplemental oxygen : supportive care COPD exacerbation : albuterol nebs : mometasone/formoterol : tiotropium : IV methylprednisolone : guaifenesin : supplemental oxygen : incentive spirometry Secondary DM2 : insulin carb ratio diet : check A1c : basal/bolus/correctional insulin CHF : review meds once reconciled HLD : review meds once reconciled Admission Rational: inpatient for management of COPD exacerbation and AFIB/RVR not anticipated to adequately stabilized w/i 48H to allow for discharge DVTp: heparin GTT Code Status: full, trial of intubation HCP: daughter
[2017-02-04] MEDS ORDERED: Albuterol 2.5 MG/3 ML NEB.SOL* (0.083%) INH PRN (04:30)
[2017-02-04] MEDS ORDERED: Melatonin (NF) 3 MG TAB PO PRN (04:30)
[2017-02-04] MEDS ORDERED: Acetaminophen TAB* 325 MG PO PRN (04:30)
[2017-02-04] MEDS ORDERED: Ondansetron INJ* 2 MG/ML VIAL IV PRN (04:31)
[2017-02-04] MEDS ORDERED: Nicotine Inhaler* 10 MG AMP INH PRN (04:31)
[2017-02-04] MEDS ORDERED: Diltiazem DRIP* 100 MG/100 ML ADDV.BAG IVPB ONE (04:34)
[2017-02-04] MEDS ORDERED: NS 0.9% 1000 ML* 1,000 ML IV SCH (04:45)
[2017-02-04] MEDS ORDERED: Levofloxacin 500 MG IVPREMIX(* 500 MG/100 ML BAG IVPB SCH (05:00)
[2017-02-04] MEDS: Omeprazole CAP* 20 MG PO SCH (05:41)
[2017-02-04 06:01] LABS: Hematocrit 36 % (35-47); Hemoglobin 11.3 g/dl (12.0-16.0); Mean Corpuscular HGB Conc 31 g/dl (31-36); Mean Corpuscular Hemoglobin 28 pg (27-31); Mean Corpuscular Volume 89 fL (80-97); Mean Platelet Volume 7 um3 (7.4-10.4); Red Blood Count 4.09 10^6/ul (4.0-5.4); Red Cell Distribution Width 15 % (10.5-15); White Blood Count 11.4 10^3/ul (3.5-10.8)
[2017-02-04 06:17] LABS: BUN/Creatinine Ratio 27.9 (8-20); Calcium 9.1 mg/dL (8.6-10.3); EGFR African American 84.1 (>60); EGFR Non-African American 65.4 (>60); Potassium 4.2 mmol/L (3.5-5.0)
[2017-02-04] MEDS ORDERED: Albuterol 2.5 MG/3 ML NEB.SOL* (0.083%) INH SCH (07:00)
--- NOTE | 2017-02-04 07:27 | RAD ---
INDICATION: Shortness of breath. COMPARISON: Comparison is made with prior studies from October 09, 2015 and December 27, 2016. TECHNIQUE: AP and lateral views of the chest were obtained. FINDINGS: The heart is within normal limits in size. Mediastinal and hilar contours appear within normal limits. There is mild prominence of the interstitial markings which appear unchanged. No focal infiltrate or pleural effusion is seen. There is flattening of the diaphragms suggestive of chronic obstructive pulmonary disease. IMPRESSION: FINDINGS CONSISTENT WITH COPD, NO EVIDENCE FOR ACUTE FINDING.
[2017-02-04] MEDS ORDERED: Dextrose 50% Syringe 50 ML* 25 GM/50 ML SYRINGE IV PUSH PRN (07:50)
[2017-02-04] MEDS: guaiFENesin ER TAB 600 MG PO SCH ×2 (08:49→21:48)
[2017-02-04] MEDS ORDERED: Spiriva Inhaler DEVICE* 1 EACH DEVICE ONE (09:00)
[2017-02-04] MEDS ORDERED: Docusate CAP* 100 MG PO SCH (09:00)
[2017-02-04] MEDS: Mometasone/Formoter 200/5 MDI INH SCH ×2 (09:21→19:46)
[2017-02-04] MEDS: Tiotropium CAP.INH* CAP.INH/18 MCG INH SCH (09:21)
[2017-02-04] MEDS: Nystatin TOP POWDER* 15 GM BTL TOPICAL SCH ×3 (09:44→21:47)
--- NOTE | 2017-02-04 11:18 | PN ---
Subjective Date of Service: 02/04/17 Interval History: Feel much better. Less SOB. No new c/o. Objective Active Medications: Acetaminophen (Tylenol Tab*) 650 mg PO Q6H PRN PRN Reason: FEVER/PAIN Albuterol (Ventolin 2.5 Mg/3 Ml Neb.Zaria*) 2.5 mg INH Q2H PRN PRN Reason: SOB/WHEEZING Albuterol (Ventolin 2.5 Mg/3 Ml Neb.Zaria*) 2.5 mg INH [id number] AWAKE [facility] Last Admin: 02/04/17 09:15 Dose: 2.5 mg Dextrose (D50w Syringe 50 Ml*) 12.5 gm IV PUSH .FOR FS < 60 - SS PRN PRN Reason: FS < 60 Diltiazem HCl (Cardizem Cd Cap*) 180 mg PO DAILY [facility] Docusate Sodium (Colace Cap*) 200 mg PO DAILY [facility] Guaifenesin (Mucinex*) 1,200 mg PO BID [facility] Last Admin: 02/04/17 08:49 Dose: 1,200 mg Sodium Chloride (Ns 0.9% 1000 Ml*) 1,000 mls @ 50 mls/hr IV PER RATE [facility] Diltiazem HCl (Cardizem Iv Advan*) 100 mg in 100 mls @ 5 mls/hr IVPB ED ONCE ONE Stop: 02/05/17 00:33 Last Admin: 02/04/17 04:57 Dose: Not Given Insulin Human Lispro (Humalog*) 0 units SUBCUT ACHS [facility] PRN Reason: Protocol Mometasone Furoate/Formoterol Fumar (Dulera 200/5 Mdi*) 2 puff INH BID [facility] Last Admin: 02/04/17 09:21 Dose: 2 puff Nicotine (Nicotine Inhaler*) 10 mg INH Q2H PRN PRN Reason: CRAVING Nystatin (Nystatin Top Powder*) 1 applic TOPICAL TID [facility] Last Admin: 02/04/17 09:44 Dose: Not Given Omeprazole (Prilosec Cap*) 20 mg PO DAILY@0600 [facility] Last Admin: 02/04/17 05:41 Dose: 20 mg Ondansetron HCl (Zofran Inj*) 4 mg IV Q6H PRN PRN Reason: NAUSEA Prednisone (Deltasone Tab*) 60 mg PO DAILY [facility] Rivaroxaban (Xarelto(*)) 20 mg PO DAILY [facility] Tiotropium [place] (Spiriva Cap.Inh*) 1 cap INH DAILY [facility] Last Admin: 02/04/17 09:21 Dose: 1 cap Vital Signs 02/04/17 02/04/17 02/04/17 03:00 03:30 03:54 Temperature 97.6 F Pulse Rate 87 81 91 Respiratory 22 22 23 Rate Blood Pressure 124/48 123/47 123/47 (mmHg) O2 Sat by Pulse 93 92 Oximetry 02/04/17 02/04/17 02/04/17 04:00 04:36 05:01 Temperature 98.7 F 98.7 F Pulse Rate 86 98 Respiratory 21 30 30 Rate Blood Pressure 128/61 128/65 (mmHg) O2 Sat by Pulse 95 96 Oximetry 02/04/17 07:42 Temperature Pulse Rate 94 Respiratory 20 Rate Blood Pressure 135/84 (mmHg) O2 Sat by Pulse 92 Oximetry Oxygen Devices in Use Now: Nasal Cannula Appearance: Alert, in a chair. In good spirits. Looks comfortable. Eyes: No Scleral Icterus Ears/Nose/Mouth/Throat: Clear Oropharnyx, Mucous Membranes Moist Neck: NL Appearance and Movements; NL JVP, No Thyroid Enlargement, Masses Respiratory: Symmetrical Chest Expansion and Respiratory Effort, Clear to Percussion - mild rhonchi BL Cardiovascular: - - irreg. Tr edema Extremities: No Clubbing, Cyanosis, - - Tr edema BL Skin: No Rash or Ulcers, No Nodules or Sclerosis Neurological: Alert and Oriented x 3, NL Sensation Result Diagrams: 02/04/17 05:45 02/04/17 05:45 Assess/Plan/Problems-Billing Assessment: - Patient Problems (1) COPD exacerbation Current Visit: No Status: Acute Priority: Medium Code(s): J44.1 - CHRONIC OBSTRUCTIVE PULMONARY DISEASE W (ACUTE) EXACERBATION SNOMED Code(s): 225922623 Comment: Improved. Prednisone 60 mg, taper on discharge. Continue levofloxacin, change to levalbuterol. (2) Afib Current Visit: No Status: Chronic Priority: Medium Code(s): I48.91 - UNSPECIFIED ATRIAL FIBRILLATION SNOMED Code(s): 66486324 Comment: Still has bursts of atrial fib. Start Diltiazem and Xarelto, has had both in the past for atrial fib. (3) Morbid exogenous obesity Current Visit: No Status: Acute Code(s): E66.01 - MORBID (SEVERE) OBESITY DUE TO EXCESS CALORIES SNOMED Code(s): 378286151 Comment: BMI 43.6 (4) Congestive heart failure (CHF) Current Visit: No Status: Acute Priority: High Code(s): I50.9 - HEART FAILURE, UNSPECIFIED SNOMED Code(s): 75430526 Comment: Acute on chronic diastolic CHF. Good response to new dose oral bumetanide, continue her home dose. She states she weighs herself at home and her weight has not changed recently. (5) Tobacco abuse Current Visit: No Status: Chronic Priority: Medium Code(s): Z72.0 - TOBACCO USE SNOMED Code(s): 750202067 Comment: Pt again advised to quit smoking and avoid second hand smoke.
[2017-02-04] MEDS ORDERED: Levalbuterol 1.25 mg/3 mL (NF) 1.25 MG/3 ML NEB.SOLN INH PRN (11:20)
--- NOTE | 2017-02-04 11:30 | PN ---
Progress Note - Progress Note Date of Service: 02/04/17 Note: Time spent on discharge 50 minutes.
[2017-02-04] MEDS ORDERED: Levalbuterol 1.25MG/0.5ML NEB INH PRN (11:53)
[2017-02-04] MEDS: Rivaroxaban TAB(*) 10 MG PO SCH (12:41)
[2017-02-04] MEDS: predniSONE TAB* 10 MG PO SCH (12:42)
[2017-02-04] MEDS: Bumetanide TAB* 2 MG PO SCH ×2 (12:42→21:47)
[2017-02-04] MEDS: Insulin LISPRO* 1 UNITS UNIT SUBCUT SCH ×3 (12:42→21:56)
[2017-02-04] MEDS: Diltiazem CD CAP* 180 MG PO SCH (12:42)
[2017-02-05] MEDS: Omeprazole CAP* 20 MG PO SCH (05:49)
[2017-02-05] MEDS ORDERED: methylPREDNISolone SOD 40 MG* 1 ML VIAL IV SCH (06:00)
[2017-02-05] MEDS: Insulin LISPRO* 1 UNITS UNIT SUBCUT SCH (07:37)
[2017-02-05] MEDS: Mometasone/Formoter 200/5 MDI INH SCH (07:57)
[2017-02-05] MEDS: Tiotropium CAP.INH* CAP.INH/18 MCG INH SCH (07:57)
[2017-02-05 08:05] VITALS: BP 120/66
[2017-02-05] MEDS: predniSONE TAB* 10 MG PO SCH (08:05)
[2017-02-05] MEDS: Bumetanide TAB* 2 MG PO SCH (08:05)
[2017-02-05] MEDS: Diltiazem CD CAP* 180 MG PO SCH (08:05)
[2017-02-05] MEDS: guaiFENesin ER TAB 600 MG PO SCH (08:05)
[2017-02-05] MEDS: Rivaroxaban TAB(*) 10 MG PO SCH (08:05)
[2017-02-05] MEDS: Nystatin TOP POWDER* 15 GM BTL TOPICAL SCH (08:06)
[2017-02-05] MEDS ORDERED: Docusate CAP* 100 MG PO SCH (09:00)
[2017-02-05] MEDS ORDERED: Levofloxacin TAB* 500 MG PO SCH (09:00)
--- NOTE | 2017-02-06 04:11 | DS ---
CC: Dr. Rhodes DISCHARGE SUMMARY: DATE OF ADMISSION: DATE OF DISCHARGE: 02/05/17 HOSPITAL COURSE: This 71-year-old woman presented with shortness of breath. She was in her usual s llanos of health until about 6 p.m. on the day before admission. She was cleaning up after dinner, dev eloped rapid onset of shortness of breath and chest tightness. Rest of the history is detailed in t he admission note. She was in atrial fibrillation with rapid ventricular response in the emergency room. She was start ed on diltiazem by bolus and infusion. She was also thought to have a COPD exacerbation. She did well in the hospital. She had paroxysmal atrial fibrillation, but was mostly in sinus rhyth m after being treated for her COPD exacerbation. She was on a prednisone taper at the time of disch arge. She received levofloxacin. She will continue her regimen of diuretics as before. She has been much better about weighing herse lf daily and paying attention to the weights. She was encouraged again to quit smoking. FINAL DIAGNOSES: 1. Chronic obstructive pulmonary disease exacerbation. 2. Atrial fibrillation. 3. Morbid obesity. 4. Acute on chronic diastolic congestive heart failure 5. Tobacco abuse. 6. Diabetes. DISCHARGE MEDICATIONS: 1. Acetaminophen 650 mg every 6 hours p.r.n. 2. Bumetanide 4 mg b.i.d. 3. Levofloxacin 500 mg daily. 4. Rivaroxaban 20 mg daily. 5. Guaifenesin ER 1200 mg b.i.d. 6. Aspirin 81 mg daily. 7. Metformin 500 mg b.i.d. 8. Glipizide XL 2.5 mg daily. 9. Ferrous sulfate as prescribed. 10. Citalopram 20 mg daily. 11. Omeprazole 20 mg daily. 12. Potassium chloride 30 mEq b.i.d. 13. Cyclobenzaprine 10 mg every 8 hours p.r.n. 14. Tiotropium 1 capsule daily. 15. Tramadol 50 mg every 6 hours p.r.n. 16. Albuterol inhaler 2 puffs every 4 hours p.r.n. [id number]/[facility] #: [id number]
[2017-02-06] MEDS ORDERED: Rivaroxaban TAB(*) 20 MG TAB PO SCH (09:00)
== END 2017-02-05 11:34 | disposition home or self-care (01) ==
LOC: ED 21:07 → MEDTELE 02-04 02:56
PROVIDERS: ADMIT Hospitalist; ATTEND Internal Medicine
DX: J44.1 Chronic obstructive pulmonary disease with (acute) exacerbation (principal); R07.9 Chest pain, unspecified; I48.0 Paroxysmal atrial fibrillation; E66.01 Morbid (severe) obesity due to excess calories; I11.0 Hypertensive heart disease with heart failure; I50.33 Acute on chronic diastolic (congestive) heart failure; E11.9 Type 2 diabetes mellitus without complications; Z79.4 Long term (current) use of insulin; Z79.84 Long term (current) use of oral hypoglycemic drugs; I25.10 Atherosclerotic heart disease of native coronary artery without angina pectoris; Z79.82 Long term (current) use of aspirin; Z79.899 Other long term (current) drug therapy; Z88.8 Allergy status to other drugs, medicaments and biological substances; Z88.6 Allergy status to analgesic agent; Z79.01 Long term (current) use of anticoagulants; F17.210 Nicotine dependence, cigarettes, uncomplicated
CPT/HCPCS: 36415; 71020; 80048; 80053; 81003; 81015; 83036; 83605; 85025; 87086; 87641; 93005; 94640; 96365; 96366; 96375; 99291; A9270-GY; G0378; J1956; J2930; J7512

== ENCOUNTER 2017-04-21 15:19 | Inpatient (IN) | payer MEDICARE ==
[2017-04-21] MEDS ORDERED: ceFAZolin 1 GM ADVAN(*) 1 GM in NS 0.9% 50 ML* 50 ML IVPB ONE (16:04)
--- NOTE | 2017-04-21 16:33 | RAD ---
INDICATION: Shortness of breath with left arm erythema and swelling. COMPARISON: Most recent comparison chest x-rays dated February 03, 2017 TECHNIQUE: Single AP portable view of the chest was obtained. FINDINGS: Image quality is compromised due to the relative inferiority of a portable chest x-ray. The heart and mediastinum exhibit normal size and contour. Similar to the prior chest x-ray the pulmonary vasculature is mildly engorged and indistinct. Otherwise the lungs are grossly clear. There is no evidence of a large pleural effusion. Visualized bones are normal for the patient's age. IMPRESSION: No radiographic evidence for acute cardiopulmonary abnormality on this portable chest x-ray.
[2017-04-21] MEDS ORDERED: ceFAZolin 1 GM in Dextrose (*) 1 GM/50 ML BAG IVPB ONE (16:36)
[2017-04-21 17:12] LABS: Hematocrit 37 % (35-47); Hemoglobin 11.6 g/dl (12.0-16.0); Mean Corpuscular HGB Conc 31 g/dl (31-36); Mean Corpuscular Hemoglobin 27 pg (27-31); Mean Corpuscular Volume 87 fL (80-97); Mean Platelet Volume 7 um3 (7.4-10.4); Red Blood Count 4.33 10^6/ul (4.0-5.4); Red Cell Distribution Width 17 % (10.5-15); White Blood Count 11.5 10^3/ul (3.5-10.8)
[2017-04-21 17:24] LABS: FIO2 6
[2017-04-21 17:27] LABS: Albumin 3.3 g/dL (3.2-5.2); BUN/Creatinine Ratio 17.1 (8-20); C Reactive Protein 73.26 mg/L (< 5.00); Calcium 9.1 mg/dL (8.6-10.3); EGFR Non-African American 75.5 (>60); Globulin 3.5 g/dL (2-4); Potassium 3.4 mmol/L (3.5-5.0); Total Bilirubin 0.5 mg/dL (0.2-1.0); Total Protein 6.8 g/dL (6.4-8.9)
[2017-04-21 17:29] LABS: Troponin I 0.01 ng/mL (<0.04)
[2017-04-21 17:32] LABS: PCO2 Arterial 78 mmHg (35-45)
[2017-04-21 18:03] LABS: Erythrocyte Sed Rate 56 mm/Hr (0-40)
[2017-04-21] MEDS ORDERED: traMADol TAB* 50 MG PO PRN (19:00)
[2017-04-21] MEDS ORDERED: Gabapentin CAP(*) 300 MG PO PRN (19:00)
[2017-04-21] MEDS ORDERED: traZODone TAB* 100 MG PO PRN (19:00)
[2017-04-21] MEDS ORDERED: DILTIAZEM HCL 120 MG PO SCH (19:00)
[2017-04-21] MEDS ORDERED: Docusate CAP* 100 MG PO PRN (19:00)
[2017-04-21] MEDS ORDERED: Levalbuterol HFA INHALER* 1 PUFF MDI INH PRN (19:00)
[2017-04-21] MEDS ORDERED: Dextrose 50% Syringe 50 ML* 25 GM/50 ML SYRINGE IV PUSH PRN (19:28)
[2017-04-21] MEDS ORDERED: ceFAZolin 1 GM VIAL(*) 1 GM in NS 0.9% 50 ML* 50 ML IVPB SCH (20:00)
[2017-04-21] MEDS: FORMOTEROL INH SCH (20:13)
--- NOTE | 2017-04-21 20:24 | RAD ---
INDICATION: Left shoulder pain COMPARISON: None. TECHNIQUE: 4 views of the left shoulder were obtained. FINDINGS: Along the lateral margin of the humeral head on the AP view there is a well-circumscribed focus of calcium. The visualized bones are otherwise well corticated and appropriately aligned. Mild degenerative changes include osteophyte formation adjacent to the acromioclavicular joint.. IMPRESSION: DEGENERATIVE CHANGES DESCRIBED ABOVE INCLUDING POTENTIAL CALCIFIC TENDINITIS INVOLVING THE SUPRASPINATUS TENDON. NO ACUTE FRACTURE OR DISLOCATION IS SEEN. If the patient's symptoms persist, follow-up imaging is recommended.
[2017-04-21] MEDS: Insulin LISPRO* 1 UNITS UNIT SUBCUT SCH (22:17)
--- NOTE | 2017-04-21 22:50 | HP ---
HISTORY AND PHYSICAL: DATE OF ADMISSION: 04/21/17 ADMITTING PROVIDER: Doroteo To MD. PRIMARY CARE PHYSICIAN: Trevor Rhodes MD. CHIEF COMPLAINT: Left hand and forearm swelling, pain, erythema. HISTORY OF PRESENT ILLNESS: Ms. Sabillon is a 71-year-old with past medical history of CHF, paroxysmal AFib, COPD, diabetes mellitus, KEVON, depression, and hyperlipidemia, who for the last 3 days developed erythema, tenderness, slight swelling on her left dorsum of hand extending to distal left forearm. The patient noticed initially tenderness and erythema near one of her knuckles and suddenly spread, is now excruciating and painful on occasion "12/10 pain" for which she has attempted to take gabapentin without relief. The patient denies any fevers, chills, nausea, vomiting, diarrhea, night sweats, no sick contacts, has had 2 weeks of constipation unrelieved by her normal bowel regimen. No changes in recent medications. The patient was recently admitted 02/04/17 for shortness of breath. The patient lives at home alone and is visited by daughter and son-in-law who fills her medication box weekly. She lives in [place] [facility]. She uses a walker to ambulate has rashes in her groin areas and chronic bilateral lower extremity venous stasis erythematous changes bilaterally. The patient has not been on any recent antibiotics. Medications were not known by the patient, who left the list in her purse, but her daughter Kyra Hatfield was called and meds confirmed. Initial vital signs in the emergency room included blood pressure 105/30, oxygen saturation 86% on 6 L nasal cannula, respiratory rate 22, pulse rate 101. Initial laboratory findings included white count 1.5, hemoglobin 11.6, platelets 271, hematocrit 37. INR 105, fibrinogen 592; pH 7.38, pCO2 of 78, pO2 of 56, bicarb 38.1. Sodium 134, potassium 3.4, chloride 87, carbon dioxide 43, BUN 13, creatinine 0.76, CRP 73, BNP 116. Initial imaging included a chest x-ray, which demonstrated no acute pulmonary abnormality. Venous Doppler study of her left upper extremity was done and pending per my read, no clots. The patient was given a dose of cefazolin in the emergency room and admitted to medicine inpatient for cellulitis given multiple comorbidities. PAST MEDICAL HISTORY: 1. Diastolic CHF. 2. COPD. 3. Diabetes mellitus type 2. 4. Paroxysmal AFib. 5. GI bleed. 6. Hyperlipidemia. 7. Obstructive sleep apnea. 8. Depression. 9. Morbid obesity. PAST SURGICAL HISTORY: Left total knee replacement. HOME MEDICATIONS: Include 1. Dulera 2 puffs in the morning. 2. Diltiazem extended release 120 mg daily. 3. Flexeril 10 mg q. 8 hours p.r.n. 4. Celexa 20 mg daily. 5. Bumex 4 mg p.o. b.i.d. 6. Xopenex 2 puffs q. 4 hours p.r.n. 7. Gabapentin 300 mg q. 6 p.r.n. 8. Ferrous sulfate 325 mg b.i.d. 9. Docusate 100 mg p.o. b.i.d. p.r.n. 10. Simvastatin 20 mg p.o. at bedtime. 11. Xarelto 20 mg p.o. daily. 12. MiraLAX daily. 13. Omeprazole 20 mg daily. 14. Trazodone one tab at bedtime p.r.n. 15. Prednisone 10 mg daily. 16. Glipizide 2.5 mg p.o. q.a.m. 17. Klonopin 1 mg p.o. at bedtime p.r.n. 18. Spiriva 1 capsule inhaled daily. 19. Metformin 500 mg p.o. b.i.d. 20. Tramadol 50 mg q. 6 p.r.n. 21. Formoterol (Perforomist) nebulized solution b.i.d. ALLERGIES: IBUPROFEN, ROFECOXIB. SOCIAL HISTORY: Current smoker, 4 cigarettes daily, 25-pack years. No alcohol or recreational drug use. . Lives alone. Daughter Kyra is her medical surrogate decision maker. FAMILY HISTORY: Mother at age 55 of alcoholic cirrhosis, father at age 80 of unknown cancer. REVIEW OF SYSTEMS: As per HPI; otherwise, negative for 14-point review including denial of melena, hematochezia, headaches, vision changes, bug bites, sick contacts, weight changes, night sweats, fevers, chills, nausea, vomiting, diarrhea, new skin lesions, constipation. Denies shortness of breath, chest pain, chest pressure, palpitations. PHYSICAL EXAMINATION GENERAL: Morbidly obese, chronically ill appearing, in no acute distress and resting in [facility]. VITAL SIGNS: As above. HEENT: Atraumatic, normocephalic. No scleral icterus. Oropharynx clear. Mucosa moist. NECK: Soft, nontender. Supple. PULMONARY: Diminished breath sounds throughout, no wheezing, rhonchi or rales. CARDIOVASCULAR: Regular rate and rhythm. Normal S1, S2. No JVD appreciated. Bilateral 1+ edema. ABDOMEN: Soft, nondistended, though morbidly obese. Nontender. No rebound or guarding. No masses appreciated. NEUROLOGIC: Moving all extremities. Cranial nerves II through XII grossly intact. Sensation intact. SKIN: Approximately 3-1/2 inch x 1-1/2 inch area of erythema, tenderness warmth on dorsum of left hand extending around to the base of thumb and snuffbox region and then up proximal left forearm, approximately 4 inches. The area is marked with skin marker. LABORATORY DATA/IMAGING STUDIES: Labs per HPI. Imaging per HPI. EKG: Sinus tachycardia, rate 92. Premature atrial complexes. No ST depressions or T-wave inversions, Q wave in III, normal axis. ASSESSMENT/ PLAN: The patient is a 71-year-old female with multiple medical comorbidities including diabetes mellitus, morbid obesity, chronic obstructive pulmonary disease, congestive heart failure, presenting with left hand and forearm cellulitis. The patient will be admitted to inpatient, covered with Bactrim double strength b.i.d. and cefazolin 1 g q. 6 hours. Blood cultures will be followed. Monitoring progression or decrease of marked cellulitic erythematous surface area will be done. Blood cultures and urine cultures will be followed. Procalcitonin is noted to be low negative. As far as the patient's chronic conditions, diastolic heart failure, her Bumex 4 mg b.i.d. Continued simvastatin 20 mg. Chronic obstructive pulmonary disease. The patient's Dulera q.a.m. Xopenex q. 4 hours p.r.n., and Spiriva one capsule inhaled daily and formoterol inhaler b.i.d. and prednisone 10 mg daily will be continued. The patient is likely chronic carbon dioxide retainer as evidenced by bicarb and ABG. The patient denies any use of CPAP or BiPAP at home for suspected obesity hypoventilation syndrome or obstructive sleep apnea. Diabetes mellitus. Metformin and glipizide will be held. The patient will be monitored on sliding scale lispro, insulin N q.a.c. and h.s. Proximal atrial fibrillation. The patient will be monitored on telemetry and continue her diltiazem starting tomorrow. Given relatively low blood pressure here, continue on rivaroxaban 20 mg q.p.m. Current smoking. The patient will be offered 14 mg per 24 hour nicotine patch. Chronic pain. The patient will be continued on home gabapentin 300 mg q. 6 p.r.n. Depression. Continued on Celexa 20 mg daily. The patient will be on a carbohydrate consistent diet. The patient will bring in her MOLST form, currently is full code. The patient will be on Xarelto for DVT prophylaxis. [id number]/[facility] #: [id number] MTDCharles
[2017-04-21] MEDS: ceFAZolin 1 GM VIAL(*) 1 GM in NS 0.9% 50 ML* 50 ML IVPB SCH (22:57)
[2017-04-21] MEDS: Potassium Chlor TAB* 10 MEQ TAB.ER PO SCH (23:01)
[2017-04-21] MEDS: Bumetanide TAB* 2 MG PO SCH (23:02)
[2017-04-21] MEDS: Rivaroxaban TAB(*) 20 MG TAB PO SCH (23:02)
[2017-04-21] MEDS: Sulfamethox/Trimethoprim DS 800/160* TAB PO SCH (23:02)
[2017-04-21] MEDS: Diltiazem CD CAP* 120 MG PO SCH (23:03)
[2017-04-21] MEDS: Atorvastatin* 10 MG TAB PO SCH (23:03)
[2017-04-21] MEDS: Nystatin SUSPENSION* 100000 UNITS/ML 5 ML UDC PO SCH (23:04)
[2017-04-21] MEDS ORDERED: Digoxin IV* 0.5 MG/2 ML AMP (0.25 MG/ML) IV SLOW PU ONE (23:09)
[2017-04-22] MEDS: Triamcinolone 0.5% OINT * 15 GM TUBE TOPICAL SCH ×3 (00:06→21:44)
[2017-04-22] MEDS: ceFAZolin 1 GM VIAL(*) 1 GM in NS 0.9% 50 ML* 50 ML IVPB SCH ×4 (04:41→21:39)
[2017-04-22 06:08] LABS: Hematocrit 36 % (35-47); Hemoglobin 11.4 g/dl (12.0-16.0); Mean Corpuscular HGB Conc 31 g/dl (31-36); Mean Corpuscular Hemoglobin 27 pg (27-31); Mean Corpuscular Volume 87 fL (80-97); Mean Platelet Volume 7 um3 (7.4-10.4); Red Blood Count 4.19 10^6/ul (4.0-5.4); Red Cell Distribution Width 17 % (10.5-15); White Blood Count 9.1 10^3/ul (3.5-10.8)
[2017-04-22 06:23] LABS: BUN/Creatinine Ratio 13.4 (8-20); Calcium 8.6 mg/dL (8.6-10.3); EGFR African American 88.9 (>60); EGFR Non-African American 69.1 (>60); Potassium 3.5 mmol/L (3.5-5.0)
[2017-04-22] MEDS: Insulin LISPRO* 1 UNITS UNIT SUBCUT SCH ×4 (07:24→21:30)
[2017-04-22] MEDS: FORMOTEROL INH SCH ×2 (08:45→20:17)
[2017-04-22] MEDS: Tiotropium CAP.INH* CAP.INH/18 MCG (USE ORDER SET !) INH SCH (08:49)
[2017-04-22] MEDS: Mometasone/Formoter 200/5 MDI INH SCH (08:53)
[2017-04-22] MEDS ORDERED: Citalopram TAB* 20 MG PO SCH (09:00)
[2017-04-22] MEDS ORDERED: Spiriva Inhaler DEVICE* 1 EACH DEVICE INH ONE (09:00)
[2017-04-22] MEDS ORDERED: predniSONE TAB* 10 MG PO SCH (09:00)
[2017-04-22] MEDS: Polyethylene Glycol 3350* 17 GM PACKET PO SCH (09:15)
[2017-04-22] MEDS: Nicotine PATCH 14 MG/24 HR* PATCH TRANSDERM SCH (09:16)
[2017-04-22] MEDS: Nystatin SUSPENSION* 100000 UNITS/ML 5 ML UDC PO SCH ×4 (09:17→21:30)
[2017-04-22] MEDS: Omeprazole CAP* 20 MG PO SCH (09:20)
[2017-04-22] MEDS: Sulfamethox/Trimethoprim DS 800/160* TAB PO SCH (09:20)
[2017-04-22] MEDS: Potassium Chlor TAB* 10 MEQ TAB.ER PO SCH ×2 (09:21→21:17)
[2017-04-22] MEDS: Ferrous Sulfate TAB* 325 MG PO SCH (09:21)
[2017-04-22] MEDS: Bumetanide TAB* 2 MG PO SCH ×2 (09:21→21:17)
--- NOTE | 2017-04-22 09:49 | RAD ---
Indication: Left hand pain and swelling. 3 views of the left hand demonstrates no fracture. Erosions are noted at the distal and proximal interphalangeal joint of the index finger, distal interphalangeal joint of the third and fourth digits as well as in the fifth digit. IMPRESSION: Erosive changes of the margins of the proximal interphalangeal joint and distal interphalangeal joint of the second digit as well as degenerative changes of the third, fourth and fifth digit. No abnormal air is noted.
--- NOTE | 2017-04-22 09:56 | RAD ---
Indication: Left wrist pain. 2 views of left wrist demonstrates some chondrocalcinosis surrounding the wrist joint. No fracture is noted. IMPRESSION: Chondrocalcinosis without evidence of abnormal erosions.
[2017-04-22] MEDS ORDERED: Vancomycin per Pharmacy* NOTE FOLLOW UP PRN (10:41)
[2017-04-22 10:49] LABS: Uric Acid 9.7 mg/dL (2.3-6.6)
[2017-04-22] MEDS ORDERED: Vancomycin(*) 2,000 MG in NS 0.9% 500 ML BAG* 500 ML IVPB ONE (11:00)
[2017-04-22] MEDS ORDERED: Vancomycin(*) 1,000 MG VIAL IVPB SCH (11:00)
[2017-04-22] MEDS ORDERED: methylPREDNISolone 125 MG* 2 ML VIAL IV ONE (11:01)
[2017-04-22 11:28] LABS: Magnesium 1.6 mg/dL (1.9-2.7)
--- NOTE | 2017-04-22 12:30 | ED ---
Jayjay Travis Angela, scribed for Eliazar Bolton MD on 04/21/17 at 1605 . Upper Extremity Pain - HPI Summary HPI Summary: This pt is a 71 y/o female presenting to [facility] c/o left arm redness, swelling, and pain x3 days. Pt denies bug bites or cuts to her left arm. She reports she is unable to move her left arm. Pt denies cough, fever, chest pain, abd pain. Pt endorses bilateral leg erythema. PMHx: COPD. - History of Current Complaint Chief Complaint: EDExtremityUpper Stated Complaint: LT ARM PAIN Time Seen by Provider: 04/21/17 15:49 Hx Obtained From: Patient - Allergies/Home Medications Allergies/Adverse Reactions: Allergies Allergy/AdvReac Type Severity Reaction Status Date / Time Ibuprofen Allergy Unknown Verified 02/03/17 21:48 Reaction Details Rofecoxib [From Vioxx] Allergy Unknown Verified 02/03/17 21:48 Reaction Details Home Medications: Home Medications Formoterol 20 MCG/2ML NEB (NF) [Perforomist NEB.SOLN*(NF)] 04/21/17 [History] Mometasone/Formoter 200/5 MDI* [Dulera 200/5 MDI*] 2 puff INH BID 04/21/17 [ History Confirmed 04/21/17] PMH/Surg Hx/FS Hx/Imm Hx Endocrine/Hematology History: Reports: Hx Anticoagulant Therapy - xarelto, Hx Diabetes, Hx Anemia Denies: Hx Blood Disorders, Hx Blood Transfusions, Hx Bone Marrow Disease, Hx Systemic Lupus Erythematosus, Hx Sickle Cell Disease, Hx Thyroid Disease, Hx Unexplained Bleeding, Other Endocrine/Hematological Disorders Cardiovascular History: Reports: Hx Congestive Heart Failure, Hx Coronary Artery Disease, Hx Hypercholesterolemia, Hx Hypertension, Other Cardiovascular Problems/Disorders - A-Fib, CAD, IDDM, OBESITY Denies: Hx Aneurysm, Hx Angina, Hx Angioplasty, Hx Auto Implanted Cardiovert Defib, Hx Cardiac Arrest, Hx Cardiomegaly, Hx Congenital Heart Disease, Hx Deep Vein Thrombosis, Hx Embolism, Hx Hypotension, Hx Myocardial Infarction, Hx Pacemaker/ICD, Hx Peripheral Vascular Disease, Hx Rheumatic Fever, Hx Syncope, Hx Valvular Heart Disease Respiratory History: Reports: Hx Asthma, Hx Chronic Obstructive Pulmonary Disease (COPD), Hx Pleural Effusion, Hx Pneumonia, Hx Seasonal Allergies, Hx Sleep Apnea Denies: Hx Chronic Bronchitis, Hx Cystic Fibrosis, Hx Lung Cancer, Hx Pulmonary Edema, Hx Pulmonary Embolism, Other Respiratory Problems/Disorders GI History: Reports: Hx Gastrointestinal Bleed Denies: Hx Cirrhosis, Hx Crohn's Disease, Hx Diverticulosis, Hx Gall Bladder Disease, Hx Gastroesophageal Reflux Disease, Hx Hiatal Hernia, Hx Irritable Bowel, Hx Jaundice, Hx Obstructive Bowel, Hx Ileostomy, Hx Pyloric Stenosis, Hx Ulcer, Other GI Disorders History: Denies: Hx Acute Renal Failure, Hx Benign Prostatic Hyperplasia, Hx Chronic Renal Failure, Hx Dialysis, Hx Kidney Infection, Hx Kidney Stones, Hx Renal Disease, Other Problems/Disorders Musculoskeletal History: Reports: Hx Arthritis, Hx Back Problems, Other Musculoskeletal History - neck stiffness Denies: Hx Bursitis, Hx Congenital Bone Abnormalities, Hx Fibromyalgia, Hx Gout, Hx Orthopedic Injury, Hx Osteoporosis, Hx Scoliosis, Hx Tendonitis Sensory History: Reports: Hx Contacts or Glasses Denies: Hx Cataracts, Hx Eye Injury, Hx Eye Prosthesis, Hx Glaucoma, Hx Legally Blind, Hx Macular Degeneration, Hx Vision Problem, Hx Deafness, Hx Hearing Aid, Hx Hearing Problem, Other Sensory Impairments Opthamlomology History: Reports: Hx Contacts or Glasses Denies: Hx Cataracts, Hx Eye Injury, Hx Eye Prosthesis, Hx Glaucoma, Hx Legally Blind, Hx Macular Degeneration, Hx Vision Problem, Other Sensory Impairments Neurological History: Denies: Hx Dementia, Hx Developmental Delay, Hx Headaches, Hx Migraine, Hx Nerve Disease, Hx Seizures, Hx Spinal Cord Injury, Hx Transient Ischemic Attacks (TIA), Other Neuro Impairments/Disorders Psychiatric History: Reports: Hx Anxiety, Hx Depression - Surgical History Surgery Procedure, Year, and Place: Knee replacement Hx Anesthesia Reactions: No Infectious Disease History: No Infectious Disease History: Reports: Hx of Known/Suspected MRSA Denies: Hx Clostridium Difficile, Hx Hepatitis, Hx Human Immunodeficiency Virus (HIV), Hx Shingles, Hx Tuberculosis, Hx Known/Suspected VRE, Hx Known/ Suspected VRSA, History Other Infectious Disease, Traveled Outside the [place] in Last 30 Days - Family History Known Family History: Positive: Cardiac Disease - Social History Alcohol Use: None Hx Substance Use: No Substance Use Type: Reports: None Hx Tobacco Use: Yes Smoking Status (MU): Current Every Day Smoker Type: Cigarettes Length of Time of Smoking/Using Tobacco: 52 Have You Smoked in the Last Year: Yes Review of Systems Negative: Fever, Chills Negative: Chest Pain Negative: Shortness Of Breath Negative: Abdominal Pain Positive: Edema - bilateral legs, Other - left arm swelling, pain, and redness All Other Systems Reviewed And Are Negative: Yes Physical Exam - Summary Physical Exam Summary: VITAL SIGNS: Reviewed. GENERAL: Patient is a well-developed and nourished female who is lying comfortable in the stretcher. Patient is not in any acute respiratory distress. HEAD AND FACE: No signs of trauma. No ecchymosis, hematomas or skull depressions. No sinus tenderness. EYES: PERRLA, EOMI x 2, No injected conjunctiva, no nystagmus. EARS: Hearing grossly intact. Ear canals and tympanic membranes are within normal limits. MOUTH: Oropharynx within normal limits. NECK: Supple, trachea is midline, no adenopathy, no JVD, no carotid bruit, no c- spine tenderness, neck with full ROM. CHEST: Symmetric, no tenderness at palpation LUNGS: There are decreased breath sounds bilaterally. There are crackles heard in the right lung. CVS: Regular rate and rhythm, S1 and S2 present, no murmurs or gallops appreciated. ABDOMEN: Soft, non-tender. No signs of distention. No rebound no guarding, and no masses palpated. Bowel sounds are normal. EXTREMITIES: FROM in all major joints, no cyanosis or clubbing. There is cellulitis and erythema on the left hand and wrist with tracking into the left forearm. There is lymphadenopathy under the left axilla. There are good pulses and good capillary refill. There is erythema in the legs, 2+ edema bilaterally. NEURO: Alert and oriented x 3. No acute neurological deficits. Speech is normal and follows commands. SKIN: Dry and warm Triage Information Reviewed: Yes Vital Signs On Initial Exam: Initial Vitals Temp Pulse Resp BP Pulse Ox 98.7 F 101 22 105/30 86 04/21/17 15:42 04/21/17 15:42 04/21/17 15:42 04/21/17 15:42 04/21/17 15:42 Vital Signs Reviewed: Yes - [place] Coma Scale Coma Scale Total: 15 Diagnostics - Vital Signs Vital Signs Temp Pulse Resp BP Pulse Ox 04/21/17 15:42 98.7 F 101 22 105/30 86 - Laboratory Lab Results: Lab Results 04/21/17 04/21/1717 Range/Units 16:58 16:58 16:58 WBC (3.5-10.8) 10^3/ul RBC (4.0-5.4) 10^6/ul Hgb (12.0-16.0) g/dl Hct (35-47) % MCV (80-97) fL MCH (27-31) pg MCHC (31-36) g/dl RDW (10.5-15) % Plt Count (150-450) 10^3/ul MPV (7.4-10.4) um3 Neut % (Auto) (38-83) % Lymph % (Auto) (25-47) % [place] % (Auto) (1-9) % Eos % (Auto) (0-6) % Baso % (Auto) (0-2) % Absolute Neuts (auto) (1.5-7.7) 10^3/ul Absolute Lymphs (auto) (1.0-4.8) 10^3/ul Absolute Monos (auto) (0-0.8) 10^3/ul Absolute Eos (auto) (0-0.6) 10^3/ul Absolute Basos (auto) (0-0.2) 10^3/ul Absolute Nucleated RBC 10^3/ul Nucleated RBC % ESR (0-40) mm/Hr INR (Anticoag Therapy) 1.05 (0.89-1.11) APTT 26.1 (26.0-36.3) seconds Fibrinogen 592 H (110.8-404.3) mg/dL Patient Temperature ABG pH (7.35-7.45) ABG pH (Temp Correct) ABG pCO2 (35-45) mmHg ABG pCO2 (Temp Corrct ABG pO2 (80-100) mmHg ABG pO2 (Temp Correct ABG HCO3 (19-31) mmol/L ABG O2 Saturation (95-98) % ABG Base Excess (-2.0-2.0) Respiration Rate O2 Delivery Device Ventilator Type Vent Mode FiO2 Inspiratory Time PEEP Pressure Support Pressure Control EPAP IPAP BiPAP Sodium 134 (133-145) mmol/L Potassium 3.4 L (3.5-5.0) mmol/L Chloride 87 L (101-111) mmol/L Carbon Dioxide 43 H* (22-32) mmol/L Anion Gap 4 (2-11) mmol/L BUN 13 (6-24) mg/dL Creatinine 0.76 (0.51-0.95) mg/dL Est GFR ( Amer) 97.0 (>60) Est GFR (Non-Af Amer) 75.5 (>60) BUN/Creatinine Ratio 17.1 (8-20) Glucose 96 (70-100) mg/dL Lactic Acid (0.5-2.0) mmol/L Calcium 9.1 (8.6-10.3) mg/dL Total Bilirubin 0.50 (0.2-1.0) mg/dL AST 10 L (13-39) U/L ALT 6 L (7-52) U/L Alkaline Phosphatase 74 (34-104) U/L Total Creatine Kinase 14 (10-223) U/L Troponin I 0.01 (<0.04) ng/mL C-Reactive Protein 73.26 H (< 5.00) mg/L B-Natriuretic Peptide 116 H ( - 100) pg/mL Total Protein 6.8 (6.4-8.9) g/dL Albumin 3.3 (3.2-5.2) g/dL Globulin 3.5 (2-4) g/dL Albumin/Globulin Ratio 0.9 L (1-3) Procalcitonin (<0.6) ng/mL 04/21/17 04/21/17 04/21/17 Range/Units 16:58 16:58 16:58 WBC 11.5 H (3.5-10.8) 10^3/ul RBC 4.33 (4.0-5.4) 10^6/ul Hgb 11.6 L (12.0-16.0) g/dl Hct 37 (35-47) % MCV 87 (80-97) fL MCH 27 (27-31) pg MCHC 31 (31-36) g/dl RDW 17 H (10.5-15) % Plt Count 271 (150-450) 10^3/ul MPV 7 L (7.4-10.4) um3 Neut % (Auto) 81.9 (38-83) % Lymph % (Auto) 6.8 L (25-47) % [place] % (Auto) 8.2 (1-9) % Eos % (Auto) 2.6 (0-6) % Baso % (Auto) 0.5 (0-2) % Absolute Neuts (auto) 9.4 H (1.5-7.7) 10^3/ul Absolute Lymphs (auto) 0.8 L (1.0-4.8) 10^3/ul Absolute Monos (auto) 0.9 H (0-0.8) 10^3/ul Absolute Eos (auto) 0.3 (0-0.6) 10^3/ul Absolute Basos (auto) 0.1 (0-0.2) 10^3/ul Absolute Nucleated RBC 0.01 10^3/ul Nucleated RBC % 0 ESR 56 H (0-40) mm/Hr INR (Anticoag Therapy) (0.89-1.11) APTT (26.0-36.3) seconds Fibrinogen (110.8-404.3) mg/dL Patient Temperature ABG pH (7.35-7.45) ABG pH (Temp Correct) ABG pCO2 (35-45) mmHg ABG pCO2 (Temp Corrct ABG pO2 (80-100) mmHg ABG pO2 (Temp Correct ABG HCO3 (19-31) mmol/L ABG O2 Saturation (95-98) % ABG Base Excess (-2.0-2.0) Respiration Rate O2 Delivery Device Ventilator Type Vent Mode FiO2 Inspiratory Time PEEP Pressure Support Pressure Control EPAP IPAP BiPAP Sodium (133-145) mmol/L Potassium (3.5-5.0) mmol/L Chloride (101-111) mmol/L Carbon Dioxide (22-32) mmol/L Anion Gap (2-11) mmol/L BUN (6-24) mg/dL Creatinine (0.51-0.95) mg/dL Est GFR ( Amer) (>60) Est GFR (Non-Af Amer) (>60) BUN/Creatinine Ratio (8-20) Glucose (70-100) mg/dL Lactic Acid 0.7 (0.5-2.0) mmol/L Calcium (8.6-10.3) mg/dL Total Bilirubin (0.2-1.0) mg/dL AST (13-39) U/L ALT (7-52) U/L Alkaline Phosphatase (34-104) U/L Total Creatine Kinase (10-223) U/L Troponin I (<0.04) ng/mL C-Reactive Protein (< 5.00) mg/L B-Natriuretic Peptide ( - 100) pg/mL Total Protein (6.4-8.9) g/dL Albumin (3.2-5.2) g/dL Globulin (2-4) g/dL Albumin/Globulin Ratio (1-3) Procalcitonin 0.1 (<0.6) ng/mL 04/21/17 Range/Units 17:15 WBC (3.5-10.8) 10^3/ul RBC (4.0-5.4) 10^6/ul Hgb (12.0-16.0) g/dl Hct (35-47) % MCV (80-97) fL MCH (27-31) pg MCHC (31-36) g/dl RDW (10.5-15) % Plt Count (150-450) 10^3/ul MPV (7.4-10.4) um3 Neut % (Auto) (38-83) % Lymph % (Auto) (25-47) % [place] % (Auto) (1-9) % Eos % (Auto) (0-6) % Baso % (Auto) (0-2) % Absolute Neuts (auto) (1.5-7.7) 10^3/ul Absolute Lymphs (auto) (1.0-4.8) 10^3/ul Absolute Monos (auto) (0-0.8) 10^3/ul Absolute Eos (auto) (0-0.6) 10^3/ul Absolute Basos (auto) (0-0.2) 10^3/ul Absolute Nucleated RBC 10^3/ul Nucleated RBC % ESR (0-40) mm/Hr INR (Anticoag Therapy) (0.89-1.11) APTT (26.0-36.3) seconds Fibrinogen (110.8-404.3) mg/dL Patient Temperature Not Reportable ABG pH 7.38 (7.35-7.45) ABG pH (Temp Correct) Not Reportable ABG pCO2 78 H* (35-45) mmHg ABG pCO2 (Temp Corrct Not Reportable ABG pO2 56 L* (80-100) mmHg ABG pO2 (Temp Correct Not Reportable ABG HCO3 38.1 H (19-31) mmol/L ABG O2 Saturation 93.4 L (95-98) % ABG Base Excess 17.3 H (-2.0-2.0) Respiration Rate Not Reportable O2 Delivery Device nasal cannula Ventilator Type Not Reportable Vent Mode Not Reportable FiO2 6 Inspiratory Time Not Reportable PEEP Not Reportable Pressure Support Not Reportable Pressure Control Not Reportable EPAP Not Reportable IPAP Not Reportable BiPAP Not Reportable Sodium (133-145) mmol/L Potassium (3.5-5.0) mmol/L Chloride (101-111) mmol/L Carbon Dioxide (22-32) mmol/L Anion Gap (2-11) mmol/L BUN (6-24) mg/dL Creatinine (0.51-0.95) mg/dL Est GFR ( Amer) (>60) Est GFR (Non-Af Amer) (>60) BUN/Creatinine Ratio (8-20) Glucose (70-100) mg/dL Lactic Acid (0.5-2.0) mmol/L Calcium (8.6-10.3) mg/dL Total Bilirubin (0.2-1.0) mg/dL AST (13-39) U/L ALT (7-52) U/L Alkaline Phosphatase (34-104) U/L Total Creatine Kinase (10-223) U/L Troponin I (<0.04) ng/mL C-Reactive Protein (< 5.00) mg/L B-Natriuretic Peptide ( - 100) pg/mL Total Protein (6.4-8.9) g/dL Albumin (3.2-5.2) g/dL Globulin (2-4) g/dL Albumin/Globulin Ratio (1-3) Procalcitonin (<0.6) ng/mL Result Diagrams: 04/22/17 05:21 04/22/17 05:21 Lab Statement: Any lab studies that have been ordered have been reviewed, and results considered in the medical decision making process. - Radiology chest XR Xray Interpretation: No Acute Changes - IMPRESSION: No radiographic evidence for acute cardiopulmonary abnormality on portable chest x-ray. ED physician has reviewed this radiology report and agrees. Radiology Interpretation Completed By: Radiologist Left shoulder XR Xray Interpretation: Positive (See Comments) - IMPRESSION: Degenerative changes as described above including potential calcific tendinitis involving the supraspinatus tendon. No acute fracture or dislocation seen. ED physician has reviewed this radiology report and agrees. Radiology Interpretation Completed By: Radiologist - EKG 1627 Cardiac Rate: NL - [address] Segment: Normal EKG Interpretation: No ST elevations Course/Dx - Course Assessment/Plan: This pt is a 71 y/o female presenting to [facility] c/o left arm redness, swelling, and pain x3 days. Pt denies bug bites or cuts to her left arm. She reports she is unable to move her left arm. Pt denies cough, fever, chest pain, abd pain. Pt endorses bilateral leg erythema. PMHx: COPD. Test results show WBC of 11.5, ESR of 56, CRP of 73.26, potassium of 3.4. These findings are probably secondary to cellulitis in left upper extremity. Since pt was short of breath and O2 saturation was 86% on 6L NC, we decided to do an ABG. ABG revealed pCO2 of 78, ABG pO2 of 56 and ABG O2 saturation of 93.4. Therefore, the pt was placed in a BiPap device. Chest XR shows no radiographic evidence for acute cardiopulmonary abnormality. I ordered an US of the LUE to rule out DVT, however she has chronic shoulder pain secondary to osteoarthritis. The pt has no history of trauma at this time. However, the pt was unable to move arm as the ultrasoundist requested and was unable to finish test to rule out DVT. The pt is on zosyn for cellulitis. At this point, I discussed the case with Dr. Gastelum (hospitalist) who will admit the pt for further management and work up. The pt is hemodynamically stable, alert and oriented x3. - Diagnoses Differential Diagnosis/HQI/PQRI: Positive: Burn, Bursitis, Contusion, Fracture ( Closed), Strain, Sprain Provider Diagnoses: Cellulitis of left upper extremity, COPD (chronic obstructive pulmonary disease ) - Physician Notifications Discussed Care of Patient With: Pio Gastelum Instructed by Provider To: Other - I discussed the pt's case with Dr. Gastelum, hospitalist. He has agreed to admit the pt. Discharge - Discharge Plan Condition: Stable Disposition: ADMITTED TO [facility] The documentation as recorded by the Jayjay deluca Angela accurately reflects the service I personally performed and the decisions made by , Eliazar Bolton MD.
--- NOTE | 2017-04-22 13:12 | RAD ---
HISTORY: Acute desaturation COMPARISONS: April 21, 2017 VIEWS: 1: frontal portable view of the chest at 12:35 PM. The patient is obliqued to the right FINDINGS: LINES AND TUBES: None. CARDIOMEDIASTINAL SILHOUETTE: The cardiomediastinal silhouette is normal for portable technique and obliquity. PLEURA: The costophrenic angles are sharp. No pleural abnormalities are noted. LUNG PARENCHYMA: The lungs are clear. ABDOMEN: The upper abdomen is clear. There is no subphrenic gas. BONES AND SOFT TISSUES: No bone or soft tissue abnormalities are noted. IMPRESSION: NO ACTIVE CARDIOPULMONARY DISEASE.
[2017-04-22] MEDS ORDERED: HYDROmorphone TAB* 4 MG PO PRN (13:14)
[2017-04-22] MEDS ORDERED: HYDROmorphone INJ* 1 MG/ML CARPUJECT SYRINGE IV SLOW PU PRN (13:27)
--- NOTE | 2017-04-22 15:30 | RAD ---
Indication: Soft tissue swelling, redness, pain LEFT wrist and hand. Comparison: April 22, 2017 radiographs. Technique: Ultrasound of 3 dominant sites corresponding with regions of swelling and redness including at the radial aspect of the wrist, radial aspect of the hand at the level of the metacarpals, and ulnar aspect of the wrist. Report: Diffuse subcutaneous edema visualized most prominent at the ulnar aspect. No loculated fluid collection evident to indicate abscess. No compelling echogenic foci with dirty shadowing to indicate soft tissue gas. No distending tendon sheaths visualized. IMPRESSION: Soft tissue swelling without visualized abscess collection.
--- NOTE | 2017-04-22 18:10 | PN ---
Subjective Date of Service: 04/22/17 Interval History: In AM pt stated pain in left hand/arm and rash were slightly improved. Upon working with physical therapy, patient acutely desat'ed to reported 50s then required 15L via combined face mask and NC to maintain Sat's in high-80s to low 90s. Pt was transferred to the ICU for hi flow NC(vapotherm). Antibiotics switched from bactrim po to vancomycin. Solumedrol 125mg ordered. CXR stable. Later patient received 4mg po dilaudid before US and few hours later became lethargic with decreased respiratory rate. Narcan 0.4mg given with brisk response. Pt placed on Bipap and 2nd dose 0.4mg given. Repeat ABG on bibap pending(first 7.05, pCO2 >124) Objective Active Medications: Atorvastatin Calcium (Lipitor*) 10 mg PO BEDTIME [facility] Last Admin: 04/21/17 23:03 Dose: 10 mg Bumetanide (Bumex Tab*) 4 mg PO BID [facility] Last Admin: 04/22/17 09:21 Dose: 4 mg Citalopram Hydrobromide (Celexa Tab*) 20 mg PO DAILY [facility] Last Admin: 04/22/17 09:21 Dose: 20 mg Dextrose (D50w Syringe 50 Ml*) 12.5 gm IV PUSH .FOR FS < 60 - SS PRN PRN Reason: FS < 60 Diltiazem HCl (Cardizem Cd Cap*) 120 mg PO QPM [facility] Last Admin: 04/21/17 23:03 Dose: 120 mg Docusate Sodium (Colace Cap*) 100 mg PO BID PRN PRN Reason: CONSTIPATION Ferrous Sulfate (Ferrous Sulfate Tab*) 325 mg PO DAILY [facility] Last Admin: 04/22/17 09:21 Dose: 325 mg Formoterol Fumarate (Perforomist Neb.Soln*(Nf)) 20 mcg INH RT.BID [facility] Last Admin: 04/22/17 08:45 Dose: 20 mcg Gabapentin (Neurontin Cap(*)) 300 mg PO TID PRN PRN Reason: PAIN Hydromorphone HCl (Dilaudid Tab*) 4 mg PO Q4H PRN PRN Reason: PAIN Last Admin: 04/22/17 13:57 Dose: 4 mg Hydromorphone HCl (Dilaudid Inj*) 1 mg IV SLOW PU ONCE PRN PRN Reason: pain Cefazolin Sodium 1 gm/ Sodium (Chloride) 50 mls @ 200 mls/hr IVPB Q6H [facility] Last Admin: 04/22/17 16:01 Dose: 200 mls/hr Vancomycin HCl 1,500 mg/ (Sodium Chloride) 250 mls @ 166.667 mls/hr IVPB Q12H [facility] Insulin Human Lispro (Humalog*) 0 units SUBCUT ACHS [facility] PRN Reason: Protocol Last Admin: 04/22/17 13:35 Dose: 2 units Levalbuterol HCl (Xopenex Hfa Inhaler*) 2 puff INH Q4HR PRN PRN Reason: WHEEZING Mometasone Furoate/Formoterol Fumar (Dulera 200/5 Mdi*) 2 puff INH QAM [facility] Last Admin: 04/22/17 08:53 Dose: Not Given Nicotine (Nicotine Patch 14 Mg/24 Hr*) 1 patch TRANSDERM 0800 [facility] Last Admin: 04/22/17 09:16 Dose: 1 patch Nystatin (Nystatin Suspension*) 500,000 units PO QID [facility] Last Admin: 04/22/17 13:35 Dose: 500,000 units Omeprazole (Prilosec Cap*) 20 mg PO DAILY [facility] Last Admin: 04/22/17 09:20 Dose: 20 mg Pharmacy Consult (Vancomycin Per Pharmacy*) 1 note FOLLOW UP . PRN PRN Reason: PER PROTOCOL Pharmacy Profile Note (Nicotine Patch Removal Note*) 1 note PATCH OFF 2100 [facility] Pharmacy Profile Note (Vancomycin Trough Check) 1 note FOLLOW UP 0530 ONE Stop: 04/24/17 05:31 Polyethylene Glycol/Electrolytes (Miralax*) 17 gm PO DAILY [facility] Last Admin: 04/22/17 09:15 Dose: 17 gm Potassium Chloride (Klor Con Er Tab*) 30 meq PO BID [facility] Last Admin: 04/22/17 09:21 Dose: 30 meq Prednisone (Deltasone Tab*) 60 mg PO DAILY [facility] Stop: 04/25/17 09:01 Rivaroxaban (Xarelto (*)) 20 mg PO QPM [facility] Last Admin: 04/21/17 23:02 Dose: 20 mg Tiotropium [place] (Spiriva Cap.Inh*) 1 cap INH DAILY [facility] Last Admin: 04/22/17 08:49 Dose: 1 cap Triamcinolone Acetonide (Triamcinolone 0.5% Oint *) 1 applic TOPICAL BID [facility] Last Admin: 04/22/17 09:17 Dose: 1 applic Vital Signs 04/21/17 04/21/17 04/21/17 19:00 19:30 19:45 Temperature 98.5 F Pulse Rate 91 97 108 Respiratory 19 22 20 Rate Blood Pressure 134/51 139/98 112/59 (mmHg) O2 Sat by Pulse 88 94 93 Oximetry 04/21/17 04/21/17 04/21/17 19:47 19:49 20:00 Temperature Pulse Rate 91 99 Respiratory 27 20 24 Rate Blood Pressure 112/59 111/47 (mmHg) O2 Sat by Pulse 91 93 Oximetry 04/21/17 04/21/17 04/22/17 20:55 23:03 00:49 Temperature 98.3 F 98.8 F Pulse Rate 73 61 Respiratory 20 20 16 Rate Blood Pressure 121/42 137/48 (mmHg) O2 Sat by Pulse 96 93 Oximetry 04/22/17 04/22/17 04/22/17 01:03 04:22 07:53 Temperature 97.8 F 97.9 F Pulse Rate 93 87 Respiratory 20 16 18 Rate Blood Pressure 102/62 125/52 (mmHg) O2 Sat by Pulse 90 94 Oximetry 04/22/17 04/22/17 04/22/17 08:00 08:51 10:52 Temperature Pulse Rate 100 97 Respiratory 20 20 19 Rate Blood Pressure 121/94 (mmHg) O2 Sat by Pulse 90 98 Oximetry 04/22/17 04/22/17 04/22/17 11:30 11:45 12:00 Temperature 98.2 F 98.3 F Pulse Rate 79 102 107 Respiratory 22 24 16 Rate Blood Pressure 158/102 146/61 (mmHg) O2 Sat by Pulse 99 98 98 Oximetry 04/22/17 04/22/17 04/22/17 12:01 12:15 12:31 Temperature Pulse Rate 93 106 98 Respiratory 16 16 16 Rate Blood Pressure 148/61 129/72 130/86 (mmHg) O2 Sat by Pulse 98 98 98 Oximetry 04/22/17 04/22/17 04/22/17 12:45 13:00 13:15 Temperature Pulse Rate 99 97 96 Respiratory 17 29 14 Rate Blood Pressure 146/75 144/78 131/81 (mmHg) O2 Sat by Pulse 98 98 99 Oximetry 04/22/17 04/22/17 04/22/17 13:30 13:45 13:57 Temperature Pulse Rate 96 87 Respiratory 25 17 18 Rate Blood Pressure 149/84 153/82 (mmHg) O2 Sat by Pulse 99 98 Oximetry 04/22/17 04/22/17 04/22/17 14:00 14:16 14:31 Temperature Pulse Rate 100 104 103 Respiratory 22 21 18 Rate Blood Pressure 142/77 129/94 (mmHg) O2 Sat by Pulse 98 98 98 Oximetry 04/22/17 04/22/17 04/22/17 14:46 15:00 15:16 Temperature Pulse Rate 95 96 96 Respiratory 19 20 28 Rate Blood Pressure 118/59 123/72 128/65 (mmHg) O2 Sat by Pulse 98 98 98 Oximetry 04/22/17 04/22/17 04/22/17 15:30 15:47 16:00 Temperature Pulse Rate 98 104 104 Respiratory 22 13 14 Rate Blood Pressure 161/91 172/100 (mmHg) O2 Sat by Pulse 97 92 92 Oximetry 04/22/17 04/22/17 04/22/17 16:16 16:22 16:30 Temperature Pulse Rate 95 99 104 Respiratory 20 21 20 Rate Blood Pressure 161/94 162/72 147/76 (mmHg) O2 Sat by Pulse 91 91 93 Oximetry 04/22/17 04/22/17 04/22/17 16:45 17:00 17:01 Temperature Pulse Rate 97 93 90 Respiratory 15 13 17 Rate Blood Pressure 150/91 143/67 (mmHg) O2 Sat by Pulse 93 91 94 Oximetry 04/22/17 17:15 Temperature Pulse Rate 104 Respiratory 13 Rate Blood Pressure 149/61 (mmHg) O2 Sat by Pulse 91 Oximetry Oxygen Devices in Use Now: High Flow Nasal Cannula Appearance: Chornically ill appearing Eyes: No Scleral Icterus, PERRLA Ears/Nose/Mouth/Throat: NL Teeth, Lips, Gums, Clear Oropharnyx Neck: NL Appearance and Movements; NL JVP, Trachea Midline Respiratory: - - Expiratory wheezes, no rhonchi or rales Cardiovascular: NL Sounds; No Murmurs; No JVD, - - tachycardic rate Abdominal: NL Sounds; No Tenderness; No Distention, No Hepatosplenomegaly Extremities: No Edema Skin: - - slight improvement in areas of erythema on left hand dorsum/hand and proximal distal forearm. reel tender to touch and reduced flexion of fingers. LE erythema in b/l shins, groin Neurological: Alert and Oriented x 3, NL Muscle Strength and Tone Result Diagrams: 04/22/17 05:21 04/22/17 05:21 Additional Lab and Data: Lab Results 04/21/17 04/21/17 04/21/17 Range/Units 16:58 16:58 16:58 WBC (3.5-10.8) 10^3/ul RBC (4.0-5.4) 10^6/ul Hgb (12.0-16.0) g/dl Hct (35-47) % MCV (80-97) fL MCH (27-31) pg MCHC (31-36) g/dl RDW (10.5-15) % Plt Count (150-450) 10^3/ul MPV (7.4-10.4) um3 Neut % (Auto) (38-83) % Lymph % (Auto) (25-47) % [place] % (Auto) (1-9) % Eos % (Auto) (0-6) % Baso % (Auto) (0-2) % Absolute Neuts (auto) (1.5-7.7) 10^3/ul Absolute Lymphs (auto) (1.0-4.8) 10^3/ul Absolute Monos (auto) (0-0.8) 10^3/ul Absolute Eos (auto) (0-0.6) 10^3/ul Absolute Basos (auto) (0-0.2) 10^3/ul Absolute Nucleated RBC 10^3/ul Nucleated RBC % ESR (0-40) mm/Hr INR (Anticoag Therapy) 1.05 (0.89-1.11) APTT 26.1 (26.0-36.3) seconds Fibrinogen 592 H (110.8-404.3) mg/dL Patient Temperature ABG pH (7.35-7.45) ABG pH (Temp Correct) ABG pCO2 (35-45) mmHg ABG pCO2 (Temp Corrct ABG pO2 (80-100) mmHg ABG pO2 (Temp Correct ABG HCO3 (19-31) mmol/L ABG O2 Saturation (95-98) % ABG Base Excess (-2.0-2.0) Respiration Rate O2 Delivery Device Ventilator Type Vent Mode FiO2 Inspiratory Time PEEP Pressure Support Pressure Control EPAP IPAP BiPAP Sodium 134 (133-145) mmol/L Potassium 3.4 L (3.5-5.0) mmol/L Chloride 87 L (101-111) mmol/L Carbon Dioxide 43 H* (22-32) mmol/L Anion Gap 4 (2-11) mmol/L BUN 13 (6-24) mg/dL Creatinine 0.76 (0.51-0.95) mg/dL Est GFR ( Amer) 97.0 (>60) Est GFR (Non-Af Amer) 75.5 (>60) BUN/Creatinine Ratio 17.1 (8-20) Glucose 96 (70-100) mg/dL Lactic Acid (0.5-2.0) mmol/L Calcium 9.1 (8.6-10.3) mg/dL Total Bilirubin 0.50 (0.2-1.0) mg/dL AST 10 L (13-39) U/L ALT 6 L (7-52) U/L Alkaline Phosphatase 74 (34-104) U/L Total Creatine Kinase 14 (10-223) U/L Troponin I 0.01 (<0.04) ng/mL C-Reactive Protein 73.26 H (< 5.00) mg/L B-Natriuretic Peptide 116 H ( - 100) pg/mL Total Protein 6.8 (6.4-8.9) g/dL Albumin 3.3 (3.2-5.2) g/dL Globulin 3.5 (2-4) g/dL Albumin/Globulin Ratio 0.9 L (1-3) Procalcitonin (<0.6) ng/mL 04/21/17 04/21/17 04/21/17 Range/Units 16:58 16:58 16:58 WBC 11.5 H (3.5-10.8) 10^3/ul RBC 4.33 (4.0-5.4) 10^6/ul Hgb 11.6 L (12.0-16.0) g/dl Hct 37 (35-47) % MCV 87 (80-97) fL MCH 27 (27-31) pg MCHC 31 (31-36) g/dl RDW 17 H (10.5-15) % Plt Count 271 (150-450) 10^3/ul MPV 7 L (7.4-10.4) um3 Neut % (Auto) 81.9 (38-83) % Lymph % (Auto) 6.8 L (25-47) % [place] % (Auto) 8.2 (1-9) % Eos % (Auto) 2.6 (0-6) % Baso % (Auto) 0.5 (0-2) % Absolute Neuts (auto) 9.4 H (1.5-7.7) 10^3/ul Absolute Lymphs (auto) 0.8 L (1.0-4.8) 10^3/ul Absolute Monos (auto) 0.9 H (0-0.8) 10^3/ul Absolute Eos (auto) 0.3 (0-0.6) 10^3/ul Absolute Basos (auto) 0.1 (0-0.2) 10^3/ul Absolute Nucleated RBC 0.01 10^3/ul Nucleated RBC % 0 ESR 56 H (0-40) mm/Hr INR (Anticoag Therapy) (0.89-1.11) APTT (26.0-36.3) seconds Fibrinogen (110.8-404.3) mg/dL Patient Temperature ABG pH (7.35-7.45) ABG pH (Temp Correct) ABG pCO2 (35-45) mmHg ABG pCO2 (Temp Corrct ABG pO2 (80-100) mmHg ABG pO2 (Temp Correct ABG HCO3 (19-31) mmol/L ABG O2 Saturation (95-98) % ABG Base Excess (-2.0-2.0) Respiration Rate O2 Delivery Device Ventilator Type Vent Mode FiO2 Inspiratory Time PEEP Pressure Support Pressure Control EPAP IPAP BiPAP Sodium (133-145) mmol/L Potassium (3.5-5.0) mmol/L Chloride (101-111) mmol/L Carbon Dioxide (22-32) mmol/L Anion Gap (2-11) mmol/L BUN (6-24) mg/dL Creatinine (0.51-0.95) mg/dL Est GFR ( Amer) (>60) Est GFR (Non-Af Amer) (>60) BUN/Creatinine Ratio (8-20) Glucose (70-100) mg/dL Lactic Acid 0.7 (0.5-2.0) mmol/L Calcium (8.6-10.3) mg/dL Total Bilirubin (0.2-1.0) mg/dL AST (13-39) U/L ALT (7-52) U/L Alkaline Phosphatase (34-104) U/L Total Creatine Kinase (10-223) U/L Troponin I (<0.04) ng/mL C-Reactive Protein (< 5.00) mg/L B-Natriuretic Peptide ( - 100) pg/mL Total Protein (6.4-8.9) g/dL Albumin (3.2-5.2) g/dL Globulin (2-4) g/dL Albumin/Globulin Ratio (1-3) Procalcitonin 0.1 (<0.6) ng/mL 04/21/17 Range/Units 17:15 WBC (3.5-10.8) 10^3/ul RBC (4.0-5.4) 10^6/ul Hgb (12.0-16.0) g/dl Hct (35-47) % MCV (80-97) fL MCH (27-31) pg MCHC (31-36) g/dl RDW (10.5-15) % Plt Count (150-450) 10^3/ul MPV (7.4-10.4) um3 Neut % (Auto) (38-83) % Lymph % (Auto) (25-47) % [place] % (Auto) (1-9) % Eos % (Auto) (0-6) % Baso % (Auto) (0-2) % Absolute Neuts (auto) (1.5-7.7) 10^3/ul Absolute Lymphs (auto) (1.0-4.8) 10^3/ul Absolute Monos (auto) (0-0.8) 10^3/ul Absolute Eos (auto) (0-0.6) 10^3/ul Absolute Basos (auto) (0-0.2) 10^3/ul Absolute Nucleated RBC 10^3/ul Nucleated RBC % ESR (0-40) mm/Hr INR (Anticoag Therapy) (0.89-1.11) APTT (26.0-36.3) seconds Fibrinogen (110.8-404.3) mg/dL Patient Temperature Not Reportable ABG pH 7.38 (7.35-7.45) ABG pH (Temp Correct) Not Reportable ABG pCO2 78 H* (35-45) mmHg ABG pCO2 (Temp Corrct Not Reportable ABG pO2 56 L* (80-100) mmHg ABG pO2 (Temp Correct Not Reportable ABG HCO3 38.1 H (19-31) mmol/L ABG O2 Saturation 93.4 L (95-98) % ABG Base Excess 17.3 H (-2.0-2.0) Respiration Rate Not Reportable O2 Delivery Device nasal cannula Ventilator Type Not Reportable Vent Mode Not Reportable FiO2 6 Inspiratory Time Not Reportable PEEP Not Reportable Pressure Support Not Reportable Pressure Control Not Reportable EPAP Not Reportable IPAP Not Reportable BiPAP Not Reportable Sodium (133-145) mmol/L Potassium (3.5-5.0) mmol/L Chloride (101-111) mmol/L Carbon Dioxide (22-32) mmol/L Anion Gap (2-11) mmol/L BUN (6-24) mg/dL Creatinine (0.51-0.95) mg/dL Est GFR ( Amer) (>60) Est GFR (Non-Af Amer) (>60) BUN/Creatinine Ratio (8-20) Glucose (70-100) mg/dL Lactic Acid (0.5-2.0) mmol/L Calcium (8.6-10.3) mg/dL Total Bilirubin (0.2-1.0) mg/dL AST (13-39) U/L ALT (7-52) U/L Alkaline Phosphatase (34-104) U/L Total Creatine Kinase (10-223) U/L Troponin I (<0.04) ng/mL C-Reactive Protein (< 5.00) mg/L B-Natriuretic Peptide ( - 100) pg/mL Total Protein (6.4-8.9) g/dL Albumin (3.2-5.2) g/dL Globulin (2-4) g/dL Albumin/Globulin Ratio (1-3) Procalcitonin (<0.6) ng/mL Microbiology and Other Data: Microbiology 04/21/17 16:58 Aerobic Blood Culture - Preliminary Blood Venous No Growth Day 1 Anaerobic Blood Culture - Preliminary No Growth Day 1 04/21/17 16:20 Aerobic Blood Culture - Preliminary Blood Venous No Growth Day 1 Anaerobic Blood Culture - Preliminary No Growth Day 1 04/22/17 12:00 Nasal Screen MRSA (PCR)(GIOVANNI) - Final Nasal Mrsa Negative 04/21/17 23:55 Nasal Screen MRSA (PCR)(GIOVANNI) - Final Nasal Mrsa Negative Assess/Plan/Problems-Billing Assessment: 71 year old female PMH COPD, CHF, likely obesity hypoventilation syndrome/KEVON, with chronic hypoxic respiratory failure (4-5L home O2), pAfib p/w left hand/ wrist/forearm erythema, tenderness concerning for cellulitis. Course complicated by acute hypoxic respiratory failure with expiratory wheezing concerning for COPD exaccerbation. Transferred to ICU for hi flow NC. On vanc/ cephazolin. Narcan for respiratory depression now on bipap. - Patient Problems (1) Acute respiratory failure with hypoxia Current Visit: No Status: Acute Priority: High Code(s): J96.01 - ACUTE RESPIRATORY FAILURE WITH HYPOXIA SNOMED Code(s): 22886793 Comment: Required transfer to ICU for high flow nasal canula. Currently on Bipap for hypercarbic respiratory failure/ respiratory depression (2) Cellulitis of hand, left Current Visit: Yes Status: Acute Code(s): L03.114 - CELLULITIS OF LEFT UPPER LIMB SNOMED Code(s): 57076990 Comment: continue vancomycin and cephalexin, some modest improvement and no extension. US and Xrays without evidence of fluid collection or gas. Bcx no growth to date (3) COPD (chronic obstructive pulmonary disease) Current Visit: No Status: Acute Code(s): J44.9 - CHRONIC OBSTRUCTIVE PULMONARY DISEASE, UNSPECIFIED SNOMED Code(s): 94289066 Comment: solumedrol 125mg once, then 40mg q8 add azithromycin already on vanc/cephazolin continue xopenex, formeterol (4) Chronic hypercapnic respiratory failure Current Visit: No Status: Acute Comment: Bipap currently Recheck ABG (5) Congestive heart failure (CHF) Current Visit: No Status: Acute Priority: High Code(s): I50.9 - HEART FAILURE, UNSPECIFIED SNOMED Code(s): 37839611 Comment: continue home bumex 4mg BID strict io daily weights BNP 116 on admission (6) Afib Current Visit: No Status: Chronic Priority: Medium Code(s): I48.91 - UNSPECIFIED ATRIAL FIBRILLATION SNOMED Code(s): 50794685 Comment: continue xarelto and diltazem. currently rate controlled Attending: Doroteo To
[2017-04-22] MEDS ORDERED: Naloxone* 0.4 MG/ML 1 ML VIAL IV PUSH ONE ×3 (18:21→23:08)
[2017-04-22] MEDS ORDERED: Naloxone* 0.4 MG/ML 1 ML VIAL ONE (18:23)
[2017-04-22 18:31] LABS: FIO2 100
[2017-04-22 18:37] LABS: PCO2 Arterial > 124 mmHg (35-45)
[2017-04-22] MEDS ORDERED: Albuterol/Ipratropium NEB.SOL* Albuterol 2.5 MG/Ipratropium 0.5 MG 3 ML INH PRN (19:13)
[2017-04-22] MEDS ORDERED: Albuterol/Ipratropium NEB.SOL* Albuterol 2.5 MG/Ipratropium 0.5 MG 3 ML ONE (19:32)
[2017-04-22 19:51] LABS: EPAP 6; FIO2 100; IPAP 14; Resp Rate 12
[2017-04-22 19:59] LABS: PCO2 Arterial > 124 mmHg (35-45)
[2017-04-22] MEDS: Rivaroxaban TAB(*) 20 MG TAB PO SCH (21:17)
[2017-04-22] MEDS: Atorvastatin* 10 MG TAB PO SCH (21:17)
[2017-04-22] MEDS: Diltiazem CD CAP* 120 MG PO SCH (21:17)
[2017-04-22] MEDS: Nicotine Patch Removal NOTE PATCH OFF SCH (21:42)
[2017-04-22] MEDS: Azithromycin IV(*) 500 MG in NS 0.9% 250 ML* 250 ML IVPB SCH (21:42)
[2017-04-22] MEDS: Nystatin TOP POWDER* 15 GM BTL TOPICAL SCH (21:43)
[2017-04-22] MEDS: methylPREDNISolone 125 MG* 2 ML VIAL IV SCH (21:47)
[2017-04-22 22:38] LABS: EPAP 6; FIO2 70; IPAP 16; Resp Rate 12
[2017-04-22 22:41] LABS: PCO2 Arterial 113 mmHg (35-45)
[2017-04-23] MEDS: methylPREDNISolone 125 MG* 2 ML VIAL IV SCH ×4 (01:18→17:52)
[2017-04-23] MEDS ORDERED: methylPREDNISolone SOD 40 MG* 1 ML VIAL IV SCH (02:00)
[2017-04-23 03:11] LABS: EPAP 6; FIO2 80; IPAP 16; Resp Rate 12
[2017-04-23 03:14] LABS: PCO2 Arterial 97 mmHg (35-45)
[2017-04-23] MEDS: ceFAZolin 1 GM VIAL(*) 1 GM in NS 0.9% 50 ML* 50 ML IVPB SCH (05:10)
[2017-04-23] MEDS: Vancomycin(*) 1,500 MG in NS 0.9% 250 ML* 250 ML IVPB SCH ×2 (05:45→17:52)
[2017-04-23 05:56] LABS: Hematocrit 37 % (35-47); Hemoglobin 11.2 g/dl (12.0-16.0); Mean Corpuscular HGB Conc 30 g/dl (31-36); Mean Corpuscular Hemoglobin 26 pg (27-31); Mean Corpuscular Volume 87 fL (80-97); Mean Platelet Volume 7 um3 (7.4-10.4); Red Blood Count 4.26 10^6/ul (4.0-5.4); Red Cell Distribution Width 16 % (10.5-15); White Blood Count 11.6 10^3/ul (3.5-10.8)
[2017-04-23 05:58] LABS: Comments Flag Yes
[2017-04-23 06:28] LABS: BUN/Creatinine Ratio 15.4 (8-20); Calcium 8.8 mg/dL (8.6-10.3); EGFR Non-African American 45.9 (>60); Magnesium 1.9 mg/dL (1.9-2.7)
[2017-04-23] MEDS ORDERED: predniSONE TAB* 20 MG PO SCH (09:00)
[2017-04-23] MEDS: Omeprazole CAP* 20 MG PO SCH (09:42)
[2017-04-23] MEDS: Polyethylene Glycol 3350* 17 GM PACKET PO SCH (09:42)
[2017-04-23] MEDS: Ferrous Sulfate TAB* 325 MG PO SCH (09:42)
[2017-04-23] MEDS: Nystatin SUSPENSION* 100000 UNITS/ML 5 ML UDC PO SCH ×4 (09:42→21:21)
[2017-04-23] MEDS: Nystatin TOP POWDER* 15 GM BTL TOPICAL SCH ×2 (09:43→21:21)
[2017-04-23] MEDS: Insulin LISPRO* 1 UNITS UNIT SUBCUT SCH ×4 (10:43→21:20)
[2017-04-23] MEDS: Bumetanide TAB* 2 MG PO SCH ×2 (10:56→21:20)
[2017-04-23] MEDS: cefTRIAXone VIAL(*) 1,000 MG in NS 0.9% 50 ML* 50 ML IVPB SCH (10:56)
[2017-04-23] MEDS: Nicotine PATCH 14 MG/24 HR* PATCH TRANSDERM SCH (10:57)
[2017-04-23] MEDS: FORMOTEROL INH SCH ×2 (13:05→20:08)
[2017-04-23] MEDS: Tiotropium CAP.INH* CAP.INH/18 MCG (USE ORDER SET !) INH SCH (13:05)
[2017-04-23] MEDS: Mometasone/Formoter 200/5 MDI INH SCH (13:06)
[2017-04-23 13:14] LABS: Venous Bicarbonate HCO3 32.9 mmol/L (24-28)
[2017-04-23] MEDS ORDERED: Magnesium CITRATE* 300 ML BTL PO ONE (14:22)
[2017-04-23] MEDS ORDERED: Bisacodyl SUPP* 10 MG SUPP PR PRN (14:25)
[2017-04-23] MEDS: traMADol TAB* 50 MG PO PRN (16:31)
[2017-04-23] MEDS: Rivaroxaban TAB(*) 20 MG TAB PO SCH (17:52)
[2017-04-23] MEDS: Diltiazem CD CAP* 120 MG PO SCH (17:52)
--- NOTE | 2017-04-23 18:26 | PN ---
Subjective Date of Service: 04/23/17 Interval History: Ventilation improved gradually overnight on Bipap. got one more narcan. Alert in AM and tolerated off bipap for breakfast. Pain still an issue but able to close hands b/l and rash receding from original boundaries. Feels on verge of having BM (none in 2.5 weeks). Objective Active Medications: Albuterol/Ipratropium (Duoneb (Albuterol 2.5 Mg/Ipratropium 0.5 Mg)) 1 neb INH Q2H PRN PRN Reason: SOB/WHEEZING Last Admin: 04/22/17 19:37 Dose: 1 neb Atorvastatin Calcium (Lipitor*) 10 mg PO BEDTIME [facility] Last Admin: 04/22/17 21:17 Dose: Not Given Bisacodyl (Dulcolax Supp*) 10 mg [place] DAILY PRN PRN Reason: CONSTIPATION Bumetanide (Bumex Tab*) 4 mg PO BID [facility] Last Admin: 04/23/17 10:56 Dose: 4 mg Dextrose (D50w Syringe 50 Ml*) 12.5 gm IV PUSH .FOR FS < 60 - SS PRN PRN Reason: FS < 60 Diltiazem HCl (Cardizem Cd Cap*) 120 mg PO QPM [facility] Last Admin: 04/23/17 17:52 Dose: 120 mg Docusate Sodium (Colace Cap*) 100 mg PO BID PRN PRN Reason: CONSTIPATION Ferrous Sulfate (Ferrous Sulfate Tab*) 325 mg PO DAILY [facility] Last Admin: 04/23/17 09:42 Dose: 325 mg Formoterol Fumarate (Perforomist Neb.Soln*(Nf)) 20 mcg INH RT.BID [facility] Last Admin: 04/23/17 13:05 Dose: Not Given Gabapentin (Neurontin Cap(*)) 300 mg PO TID PRN PRN Reason: PAIN Last Admin: 04/23/17 11:54 Dose: 300 mg Vancomycin HCl 1,500 mg/ (Sodium Chloride) 250 mls @ 166.667 mls/hr IVPB Q12H [facility] Last Admin: 04/23/17 17:52 Dose: 166.667 mls/hr Azithromycin 500 mg/ Sodium (Chloride) 250 mls @ 250 mls/hr IVPB Q24H [facility] Last Admin: 04/22/17 21:42 Dose: 250 mls/hr Ceftriaxone Sodium 1,000 mg/ (Sodium Chloride) 50 mls @ 200 mls/hr IVPB Q24H [facility] Last Admin: 04/23/17 10:56 Dose: 200 mls/hr Insulin Human Lispro (Humalog*) 0 units SUBCUT ACHS [facility] PRN Reason: Protocol Last Admin: 04/23/17 13:16 Dose: 6 units Methylprednisolone Sodium Succinate (Solu-Medrol 125mg *) 60 mg IV Q6HR [facility] Last Admin: 04/23/17 17:52 Dose: 60 mg Mometasone Furoate/Formoterol Fumar (Dulera 200/5 Mdi*) 2 puff INH QAM [facility] Last Admin: 04/23/17 13:06 Dose: 2 puff Nicotine (Nicotine Patch 14 Mg/24 Hr*) 1 patch TRANSDERM 0800 [facility] Last Admin: 04/23/17 10:57 Dose: 1 patch Nystatin (Nystatin Suspension*) 500,000 units PO QID [facility] Last Admin: 04/23/17 17:52 Dose: 500,000 units Nystatin (Nystatin Top Powder*) 1 applic TOPICAL BID [facility] Last Admin: 04/23/17 09:43 Dose: 1 applic Omeprazole (Prilosec Cap*) 20 mg PO DAILY [facility] Last Admin: 04/23/17 09:42 Dose: 20 mg Pharmacy Consult (Vancomycin Per Pharmacy*) 1 note FOLLOW UP . PRN PRN Reason: PER PROTOCOL Pharmacy Profile Note (Nicotine Patch Removal Note*) 1 note PATCH OFF 2100 [facility] Last Admin: 04/22/17 21:42 Dose: 1 note Pharmacy Profile Note (Vancomycin Trough Check) 1 note FOLLOW UP 0530 ONE Stop: 04/24/17 05:31 Polyethylene Glycol/Electrolytes (Miralax*) 17 gm PO DAILY [facility] Last Admin: 04/23/17 09:42 Dose: 17 gm Rivaroxaban (Xarelto (*)) 20 mg PO QPM [facility] Last Admin: 04/23/17 17:52 Dose: 20 mg Tiotropium [place] (Spiriva Cap.Inh*) 1 cap INH DAILY [facility] Last Admin: 04/23/17 13:05 Dose: 1 cap Tramadol HCl (Ultram*) 50 mg PO Q6H PRN PRN Reason: PAIN Last Admin: 04/23/17 16:31 Dose: 50 mg Vital Signs 04/22/17 04/22/1717 18:31 18:39 18:45 Temperature Pulse Rate 96 94 93 Respiratory 31 17 30 Rate Blood Pressure 171/88 114/98 167/82 (mmHg) O2 Sat by Pulse 96 96 94 Oximetry 04/22/17 04/22/17 04/22/17 19:00 19:15 19:30 Temperature Pulse Rate 94 90 95 Respiratory 16 17 20 Rate Blood Pressure 156/83 149/65 130/64 (mmHg) O2 Sat by Pulse 98 98 99 Oximetry 04/22/17 04/22/17 04/22/17 19:45 19:50 19:51 Temperature 97.5 F Pulse Rate 93 89 Respiratory 20 18 Rate Blood Pressure 143/65 (mmHg) O2 Sat by Pulse 97 99 Oximetry 04/22/17 04/22/17 04/22/17 20:00 20:15 20:29 Temperature Pulse Rate 86 86 Respiratory 23 26 16 Rate Blood Pressure 126/61 123/55 (mmHg) O2 Sat by Pulse 97 97 Oximetry 04/22/17 04/22/17 04/22/17 20:30 20:45 21:00 Temperature Pulse Rate 84 92 73 Respiratory 29 20 32 Rate Blood Pressure 115/53 144/69 114/49 (mmHg) O2 Sat by Pulse 92 96 98 Oximetry 04/22/17 04/22/17 04/22/17 21:15 21:30 21:45 Temperature Pulse Rate 78 87 80 Respiratory 31 27 20 Rate Blood Pressure 112/50 113/50 117/54 (mmHg) O2 Sat by Pulse 97 96 95 Oximetry 04/22/17 04/22/17 04/22/17 22:00 22:01 22:15 Temperature Pulse Rate 85 81 88 Respiratory 28 33 23 Rate Blood Pressure 119/59 150/95 (mmHg) O2 Sat by Pulse 95 95 91 Oximetry 04/22/17 04/22/17 04/22/17 22:30 22:45 23:00 Temperature Pulse Rate 88 85 83 Respiratory 15 19 29 Rate Blood Pressure 135/73 125/61 117/57 (mmHg) O2 Sat by Pulse 91 93 95 Oximetry 04/22/17 04/22/17 04/22/17 23:01 23:15 23:23 Temperature Pulse Rate 79 78 94 Respiratory 18 21 19 Rate Blood Pressure 114/57 (mmHg) O2 Sat by Pulse 96 96 93 Oximetry 0904/22/17 04/22/17 23:30 23:35 23:45 Temperature 97.5 F Pulse Rate 88 88 Respiratory 23 17 Rate Blood Pressure 120/47 117/48 (mmHg) O2 Sat by Pulse 94 92 Oximetry 04/23/17 04/23/17 04/23/17 00:00 00:15 00:30 Temperature Pulse Rate 83 83 78 Respiratory 20 15 15 Rate Blood Pressure 110/52 108/39 92/36 (mmHg) O2 Sat by Pulse 95 96 98 Oximetry 04/23/17 04/23/17 04/23/17 00:45 01:00 01:01 Temperature Pulse Rate 77 83 78 Respiratory 18 23 26 Rate Blood Pressure 98/37 96/43 (mmHg) O2 Sat by Pulse 97 94 98 Oximetry 04/23/17 04/23/17 04/23/17 01:15 01:30 01:45 Temperature Pulse Rate 77 77 79 Respiratory 20 34 26 Rate Blood Pressure 99/37 100/43 107/44 (mmHg) O2 Sat by Pulse 96 96 95 Oximetry 04/23/17 04/23/17 04/23/17 02:00 02:15 02:31 Temperature Pulse Rate 85 84 89 Respiratory 14 31 18 Rate Blood Pressure 126/43 122/50 91/65 (mmHg) O2 Sat by Pulse 97 96 96 Oximetry 04/23/17 04/23/17 04/23/17 02:35 02:45 03:00 Temperature Pulse Rate 96 90 Respiratory 18 21 16 Rate Blood Pressure 117/53 106/59 (mmHg) O2 Sat by Pulse 97 96 Oximetry 04/23/17 04/23/17 04/23/17 03:15 03:30 03:45 Temperature Pulse Rate 97 93 80 Respiratory 17 16 16 Rate Blood Pressure 114/56 112/51 112/54 (mmHg) O2 Sat by Pulse 97 96 97 Oximetry 04/23/17 04/23/17 04/23/17 03:58 04:00 04:01 Temperature 97.0 F Pulse Rate 80 80 Respiratory 18 18 Rate Blood Pressure 109/52 (mmHg) O2 Sat by Pulse 96 98 Oximetry 04/23/17 04/23/17 04/23/17 04:15 04:30 04:45 Temperature Pulse Rate 78 76 80 Respiratory 16 18 14 Rate Blood Pressure 119/55 114/52 100/50 (mmHg) O2 Sat by Pulse 95 98 97 Oximetry 04/23/17 04/23/17 04/23/17 05:00 05:01 05:15 Temperature Pulse Rate 76 76 79 Respiratory 16 15 20 Rate Blood Pressure 103/48 117/58 (mmHg) O2 Sat by Pulse 96 98 97 Oximetry 04/23/17 04/23/17 04/23/17 05:30 05:45 06:00 Temperature Pulse Rate 81 82 81 Respiratory 9 14 15 Rate Blood Pressure 123/54 126/56 123/56 (mmHg) O2 Sat by Pulse 97 96 95 Oximetry 04/23/17 04/23/17 04/23/17 06:01 06:15 06:30 Temperature Pulse Rate 81 81 88 Respiratory 13 15 21 Rate Blood Pressure 119/52 130/59 (mmHg) O2 Sat by Pulse 97 95 97 Oximetry 04/23/17 04/23/17 04/23/17 06:46 07:00 07:01 Temperature Pulse Rate 83 81 81 Respiratory 31 14 14 Rate Blood Pressure 115/50 110/48 (mmHg) O2 Sat by Pulse 96 95 98 Oximetry 04/23/17 04/23/17 04/23/17 07:15 07:30 07:45 Temperature Pulse Rate 82 82 80 Respiratory 22 20 21 Rate Blood Pressure 103/46 127/59 114/54 (mmHg) O2 Sat by Pulse 96 97 96 Oximetry 04/23/17 04/23/17 04/23/17 08:00 08:01 08:15 Temperature Pulse Rate 76 65 80 Respiratory 26 23 23 Rate Blood Pressure 123/58 119/56 (mmHg) O2 Sat by Pulse 97 98 96 Oximetry 04/23/17 04/23/17 04/23/17 08:30 08:45 09:00 Temperature Pulse Rate 79 75 79 Respiratory 19 18 22 Rate Blood Pressure 113/49 122/53 121/53 (mmHg) O2 Sat by Pulse 96 98 98 Oximetry 04/23/17 04/23/17 04/23/17 09:15 09:30 09:45 Temperature Pulse Rate 82 79 82 Respiratory 19 20 14 Rate Blood Pressure 118/55 134/64 130/62 (mmHg) O2 Sat by Pulse 96 97 95 Oximetry 04/23/17 04/23/17 04/23/17 10:00 10:01 10:15 Temperature Pulse Rate 82 77 85 Respiratory 21 21 14 Rate Blood Pressure 140/70 120/68 (mmHg) O2 Sat by Pulse 97 98 98 Oximetry 04/23/17 04/23/17 04/23/17 10:30 10:45 11:00 Temperature Pulse Rate 82 87 88 Respiratory 24 15 14 Rate Blood Pressure 124/58 123/63 144/86 (mmHg) O2 Sat by Pulse 97 98 86 Oximetry 04/23/17 04/23/17 04/23/17 11:01 11:15 11:31 Temperature Pulse Rate 89 94 81 Respiratory 14 20 20 Rate Blood Pressure 124/67 122/47 (mmHg) O2 Sat by Pulse 90 93 93 Oximetry 04/23/17 04/23/17 04/23/17 11:46 12:00 12:01 Temperature Pulse Rate 81 97 117 Respiratory 15 25 29 Rate Blood Pressure 114/50 119/72 (mmHg) O2 Sat by Pulse 93 91 90 Oximetry 04/23/17 04/23/17 04/23/17 12:16 13:00 13:09 Temperature Pulse Rate 117 112 102 Respiratory 17 19 20 Rate Blood Pressure 117/62 (mmHg) O2 Sat by Pulse 86 89 92 Oximetry 04/23/17 04/23/17 04/23/17 13:10 14:00 14:19 Temperature Pulse Rate 108 Respiratory 20 23 16 Rate Blood Pressure (mmHg) O2 Sat by Pulse 92 Oximetry 04/23/17 04/23/17 04/23/17 14:21 15:00 15:01 Temperature Pulse Rate 104 101 92 Respiratory 31 24 17 Rate Blood Pressure 116/48 142/63 (mmHg) O2 Sat by Pulse 94 96 96 Oximetry 04/23/17 04/23/17 04/23/17 16:00 16:01 17:00 Temperature Pulse Rate 96 103 89 Respiratory 19 16 28 Rate Blood Pressure 151/65 (mmHg) O2 Sat by Pulse 95 94 98 Oximetry 04/23/17 04/23/17 04/23/17 17:02 18:00 18:02 Temperature Pulse Rate 95 94 95 Respiratory 20 17 19 Rate Blood Pressure 119/62 135/63 (mmHg) O2 Sat by Pulse 97 96 96 Oximetry Oxygen Devices in Use Now: Nasal Cannula Appearance: Remarkably improved mentation. No acute distress. Ears/Nose/Mouth/Throat: NL Teeth, Lips, Gums, Mucous Membranes Moist Neck: NL Appearance and Movements; NL JVP, Trachea Midline Respiratory: Symmetrical Chest Expansion and Respiratory Effort, - - Much less expiratory wheezing. Cardiovascular: NL Sounds; No Murmurs; No JVD, RRR Abdominal: NL Sounds; No Tenderness; No Distention, No Hepatosplenomegaly Extremities: No Edema Skin: - - Reciding erythema on left hand dorsum and proximal distal forearm. Neurological: Alert and Oriented x 3, NL Muscle Strength and Tone Result Diagrams: 04/23/17 05:23 04/23/17 05:23 Additional Lab and Data: Laboratory Results - last 24 hr 04/22/17 04/22/17 04/22/17 18:22 18:27 19:44 WBC RBC Hgb Hct MCV MCH MCHC RDW Plt Count MPV Neut % (Auto) Lymph % (Auto) [place] % (Auto) Eos % (Auto) Baso % (Auto) Absolute Neuts (auto) Absolute Lymphs (auto) Absolute Monos (auto) Absolute Eos (auto) Absolute Basos (auto) Absolute Nucleated RBC Nucleated RBC % Patient Temperature Not Reportable Not Reportable ABG pH 7.05 L* 7.16 L* ABG pH (Temp Correct) Not Reportable Not Reportable ABG pCO2 > 124 H* > 124 H* ABG pCO2 (Temp Corrct Not Reportable Not Reportable ABG pO2 103 H 209 H ABG pO2 (Temp Correct Not Reportable Not Reportable ABG HCO3 TNP 34.9 H ABG O2 Saturation 97.7 100.0 H ABG Base Excess TNP 12.8 H VBG pH VBG pCO2 VBG pO2 VBG HCO3 VBG O2 Saturation VBG Base Excess Respiration Rate Not Reportable 12 O2 Delivery Device vapotherm bipap Ventilator Type Not Reportable Not Reportable Vent Mode Not Reportable Not Reportable FiO2 100 100 Inspiratory Time Not Reportable Not Reportable PEEP Not Reportable Not Reportable Pressure Support Not Reportable Not Reportable Pressure Control Not Reportable Not Reportable EPAP Not Reportable 6 IPAP Not Reportable 14 BiPAP Not Reportable Not Reportable Sodium Potassium Chloride Carbon Dioxide Anion Gap BUN Creatinine Est GFR ( Amer) Est GFR (Non-Af Amer) BUN/Creatinine Ratio Glucose POC Glucose (mg/dL) 222 H Calcium Magnesium 04/22/17 04/23/17 04/23/17 22:33 02:56 05:23 WBC RBC Hgb Hct MCV MCH MCHC RDW Plt Count MPV Neut % (Auto) Lymph % (Auto) [place] % (Auto) Eos % (Auto) Baso % (Auto) Absolute Neuts (auto) Absolute Lymphs (auto) Absolute Monos (auto) Absolute Eos (auto) Absolute Basos (auto) Absolute Nucleated RBC Nucleated RBC % Patient Temperature Not Reportable Not Reportable ABG pH 7.20 L 7.26 L ABG pH (Temp Correct) Not Reportable Not Reportable ABG pCO2 113 H* 97 H* ABG pCO2 (Temp Corrct Not Reportable Not Reportable ABG pO2 73 L 93 ABG pO2 (Temp Correct Not Reportable Not Reportable ABG HCO3 33.9 H 34.7 H ABG O2 Saturation 96.0 98.9 H ABG Base Excess 11.7 H 12.6 H VBG pH VBG pCO2 VBG pO2 VBG HCO3 VBG O2 Saturation VBG Base Excess Respiration Rate 12 12 O2 Delivery Device bipap bipap Ventilator Type Not Reportable Not Reportable Vent Mode Not Reportable Not Reportable FiO2 70 80 Inspiratory Time Not Reportable Not Reportable PEEP Not Reportable Not Reportable Pressure Support Not Reportable Not Reportable Pressure Control Not Reportable Not Reportable EPAP 6 6 IPAP 16 16 BiPAP Not Reportable Not Reportable Sodium 136 Potassium 5.0 D Chloride 92 L Carbon Dioxide 41 H* Anion Gap 3 BUN 18 Creatinine 1.17 H Est GFR ( Amer) 59.0 Est GFR (Non-Af Amer) 45.9 BUN/Creatinine Ratio 15.4 Glucose 157 H POC Glucose (mg/dL) Calcium 8.8 Magnesium 1.9 04/23/17 04/23/17 04/23/17 05:23 09:57 13:01 WBC 11.6 H RBC 4.26 Hgb 11.2 L Hct 37 MCV 87 MCH 26 L MCHC 30 L RDW 16 H Plt Count 238 MPV 7 L Neut % (Auto) 95.6 H Lymph % (Auto) 2.7 L [place] % (Auto) 1.6 Eos % (Auto) 0 Baso % (Auto) 0.1 Absolute Neuts (auto) 11.1 H Absolute Lymphs (auto) 0.3 L Absolute Monos (auto) 0.2 Absolute Eos (auto) 0 Absolute Basos (auto) 0 Absolute Nucleated RBC 0 Nucleated RBC % 0 Patient Temperature ABG pH ABG pH (Temp Correct) ABG pCO2 ABG pCO2 (Temp Corrct ABG pO2 ABG pO2 (Temp Correct ABG HCO3 ABG O2 Saturation ABG Base Excess VBG pH VBG pCO2 VBG pO2 VBG HCO3 VBG O2 Saturation VBG Base Excess Respiration Rate O2 Delivery Device Ventilator Type Vent Mode FiO2 Inspiratory Time PEEP Pressure Support Pressure Control EPAP IPAP BiPAP Sodium Potassium Chloride Carbon Dioxide Anion Gap BUN Creatinine Est GFR ( Amer) Est GFR (Non-Af Amer) BUN/Creatinine Ratio Glucose POC Glucose (mg/dL) 154 H 238 H Calcium Magnesium 04/23/17 04/23/17 13:07 17:51 WBC RBC Hgb Hct MCV MCH MCHC RDW Plt Count MPV Neut % (Auto) Lymph % (Auto) [place] % (Auto) Eos % (Auto) Baso % (Auto) Absolute Neuts (auto) Absolute Lymphs (auto) Absolute Monos (auto) Absolute Eos (auto) Absolute Basos (auto) Absolute Nucleated RBC Nucleated RBC % Patient Temperature ABG pH ABG pH (Temp Correct) ABG pCO2 ABG pCO2 (Temp Corrct ABG pO2 ABG pO2 (Temp Correct ABG HCO3 ABG O2 Saturation ABG Base Excess VBG pH 7.34 VBG pCO2 72 H VBG pO2 59 H VBG HCO3 32.9 H VBG O2 Saturation 93.8 H VBG Base Excess 10.4 H Respiration Rate O2 Delivery Device Ventilator Type Vent Mode FiO2 Inspiratory Time PEEP Pressure Support Pressure Control EPAP IPAP BiPAP Sodium Potassium Chloride Carbon Dioxide Anion Gap BUN Creatinine Est GFR ( Amer) Est GFR (Non-Af Amer) BUN/Creatinine Ratio Glucose POC Glucose (mg/dL) 138 H Calcium Magnesium Microbiology and Other Data: Microbiology 04/21/17 16:58 Aerobic Blood Culture - Preliminary Blood Venous No Growth Day 2 Anaerobic Blood Culture - Preliminary No Growth Day 2 Blood Culture - Final 04/21/17 16:20 Aerobic Blood Culture - Preliminary Blood Venous No Growth Day 2 Anaerobic Blood Culture - Preliminary No Growth Day 2 Blood Culture - Final Assess/Plan/Problems-Billing Assessment: 71 year old female PMH COPD, CHF, likely obesity hypoventilation syndrome/KEVON, with chronic hypoxic respiratory failure (4-5L home O2), pAfib p/w left hand/ wrist/forearm erythema, tenderness concerning for cellulitis. Course complicated by acute hypoxic respiratory failure with expiratory wheezing concerning for COPD exacerbation. Transferred to ICU for hi flow NC then oversedated on dilauid given prior to ultrasound. Required narcan and Bipap overnight 04/22 for severe hypercapnic respiratory failure. Ventilation and mentation back to baselin. Currently Vanc/ceftriaxone/azithromycin. - Patient Problems (1) Acute respiratory failure with hypoxia Current Visit: No Status: Acute Priority: High Code(s): J96.01 - ACUTE RESPIRATORY FAILURE WITH HYPOXIA SNOMED Code(s): 72562757 Comment: Required transfer to ICU for high flow nasal canula. Currently on Bipap for hypercarbic respiratory failure/ respiratory depression (2) Cellulitis of hand, left Current Visit: Yes Status: Acute Code(s): L03.114 - CELLULITIS OF LEFT UPPER LIMB SNOMED Code(s): 63697430 Comment: continue vancomycin (and ceftriaxone/azithromycin for COPD exaccerbation). Continued improvement US and Xrays without evidence of fluid collection or gas. Bcx no growth to date (3) COPD (chronic obstructive pulmonary disease) Current Visit: No Status: Acute Code(s): J44.9 - CHRONIC OBSTRUCTIVE PULMONARY DISEASE, UNSPECIFIED SNOMED Code(s): 55523521 Comment: s/p solumedrol 125mg once, then 60mg q6. decrease to 40mg q8. azithromycin/ceftriaxone already on vanc for cellulitis RT switched to duo nebs (will stop home xopenex) home formeterol (4) Chronic hypercapnic respiratory failure Current Visit: No Status: Acute Comment: acute on chronic crisis has resolved on bipap overnight 04/22->04/23 (5) Congestive heart failure (CHF) Current Visit: No Status: Acute Priority: High Code(s): I50.9 - HEART FAILURE, UNSPECIFIED SNOMED Code(s): 51206039 Comment: continue home bumex 4mg BID strict io daily weights BNP 116 on admission (6) Afib Current Visit: No Status: Chronic Priority: Medium Code(s): I48.91 - UNSPECIFIED ATRIAL FIBRILLATION SNOMED Code(s): 18179400 Comment: continue xarelto and diltazem. currently rate controlled Status and Disposition: medicine inpatient in ICU, likely downgrade to floor 04/24 and potential d/c 04/25 -04/26 Attending: Doroteo To
[2017-04-23] MEDS: Atorvastatin* 10 MG TAB PO SCH (21:20)
[2017-04-23] MEDS: Azithromycin IV(*) 500 MG in NS 0.9% 250 ML* 250 ML IVPB SCH (21:20)
[2017-04-23] MEDS: Nicotine Patch Removal NOTE PATCH OFF SCH (21:21)
[2017-04-24 05:20] LABS: Hematocrit 34 % (35-47); Hemoglobin 10.5 g/dl (12.0-16.0); Mean Corpuscular HGB Conc 31 g/dl (31-36); Mean Corpuscular Hemoglobin 26 pg (27-31); Mean Corpuscular Volume 86 fL (80-97); Mean Platelet Volume 7 um3 (7.4-10.4); Red Blood Count 3.99 10^6/ul (4.0-5.4); Red Cell Distribution Width 16 % (10.5-15); White Blood Count 15.7 10^3/ul (3.5-10.8)
[2017-04-24] MEDS ORDERED: Vancomycin Trough Check NOTE FOLLOW UP ONE (05:30)
[2017-04-24 05:36] LABS: BUN/Creatinine Ratio 33.3 (8-20); Calcium 8.4 mg/dL (8.6-10.3); EGFR African American 76.9 (>60); EGFR Non-African American 59.8 (>60); Magnesium 2.3 mg/dL (1.9-2.7)
[2017-04-24] MEDS: Vancomycin(*) 1,500 MG in NS 0.9% 250 ML* 250 ML IVPB SCH (07:19)
[2017-04-24] MEDS: methylPREDNISolone SOD 40 MG* 1 ML VIAL IV SCH ×3 (07:20→21:21)
[2017-04-24] MEDS: Tiotropium CAP.INH* CAP.INH/18 MCG (USE ORDER SET !) INH SCH (07:33)
[2017-04-24] MEDS: Mometasone/Formoter 200/5 MDI INH SCH (07:34)
[2017-04-24] MEDS: FORMOTEROL INH SCH ×2 (07:39→20:30)
[2017-04-24] MEDS: Bumetanide TAB* 2 MG PO SCH ×2 (08:00→21:21)
[2017-04-24] MEDS: Nicotine PATCH 14 MG/24 HR* PATCH TRANSDERM SCH (08:00)
[2017-04-24] MEDS: Ferrous Sulfate TAB* 325 MG PO SCH (08:01)
[2017-04-24] MEDS: Nystatin SUSPENSION* 100000 UNITS/ML 5 ML UDC PO SCH ×4 (08:01→21:22)
[2017-04-24] MEDS: Omeprazole CAP* 20 MG PO SCH (08:02)
[2017-04-24] MEDS: Nystatin TOP POWDER* 15 GM BTL TOPICAL SCH ×2 (08:02→21:22)
[2017-04-24] MEDS: Polyethylene Glycol 3350* 17 GM PACKET PO SCH (08:02)
[2017-04-24] MEDS: Insulin LISPRO* 1 UNITS UNIT SUBCUT SCH ×4 (08:28→21:21)
--- NOTE | 2017-04-24 09:06 | PN ---
Subjective Date of Service: 04/24/17 Interval History: Ms. Sabillon states that she is feeling pretty well today. She continues to have some shortness of breath with mobility but is near here baseline. She has some swelling to her left wrist with some decreased mobility. She denies other complaint. Objective Active Medications: Albuterol/Ipratropium (Duoneb (Albuterol 2.5 Mg/Ipratropium 0.5 Mg)) 1 neb INH Q2H PRN Atorvastatin Calcium (Lipitor*) 10 mg PO BEDTIME [facility] Bisacodyl (Dulcolax Supp*) 10 mg [place] DAILY PRN Bumetanide (Bumex Tab*) 4 mg PO BID [facility] Dextrose (D50w Syringe 50 Ml*) 12.5 gm IV PUSH .FOR FS < 60 - SS PRN Diltiazem HCl (Cardizem Cd Cap*) 120 mg PO QPM [facility] Docusate Sodium (Colace Cap*) 100 mg PO BID PRN Ferrous Sulfate (Ferrous Sulfate Tab*) 325 mg PO DAILY [facility] Formoterol Fumarate (Perforomist Neb.Soln*(Nf)) 20 mcg INH RT.BID [facility] Gabapentin (Neurontin Cap(*)) 300 mg PO TID PRN Azithromycin 500 mg/ Sodium (Chloride) 250 mls @ 250 mls/hr IVPB Q24H [facility] Ceftriaxone Sodium 1,000 mg/ (Sodium Chloride) 50 mls @ 200 mls/hr IVPB Q24H [facility] Vancomycin HCl 1,000 mg/ (Sodium Chloride) 250 mls @ 166.667 mls/hr IVPB Q12H [facility] Insulin Human Lispro (Humalog*) 0 units SUBCUT ACHS [facility] Methylprednisolone Sodium Succinate (Solu-Medrol 40 Mg) 40 mg IV Q8H [facility] Mometasone Furoate/Formoterol Fumar (Dulera 200/5 Mdi*) 2 puff INH QAM [facility] Nicotine (Nicotine Patch 14 Mg/24 Hr*) 1 patch TRANSDERM 0800 [facility] Nystatin (Nystatin Suspension*) 500,000 units PO QID [facility] Nystatin (Nystatin Top Powder*) 1 applic TOPICAL BID [facility] Omeprazole (Prilosec Cap*) 20 mg PO DAILY [facility] Pharmacy Consult (Vancomycin Per Pharmacy*) 1 note FOLLOW UP . PRN Pharmacy Profile Note (Nicotine Patch Removal Note*) 1 note PATCH OFF 2100 [facility] Pharmacy Profile Note (Vancomycin Trough Check) 1 note FOLLOW UP ONCE ONE Polyethylene Glycol/Electrolytes (Miralax*) 17 gm PO DAILY [facility] Rivaroxaban (Xarelto (*)) 20 mg PO QPM [facility] Tiotropium [place] (Spiriva Cap.Inh*) 1 cap INH DAILY [facility] Tramadol HCl (Ultram*) 50 mg PO Q6H PRN Vital Signs: Temp Pulse Resp BP Pulse Ox 98.0 F 83 20 128/62 93 04/24/17 11:06 04/24/17 11:06 04/24/17 11:06 04/24/17 11:06 04/24/17 11:06 Oxygen Devices in Use Now: Nasal Cannula Appearance: Female lying in bed in NAD Eyes: No Scleral Icterus Ears/Nose/Mouth/Throat: Mucous Membranes Moist Respiratory: Symmetrical Chest Expansion and Respiratory Effort, - - Minimal wheezing bilaterally Cardiovascular: NL Sounds; No Murmurs; No JVD, No Edema Abdominal: NL Sounds; No Tenderness; No Distention Extremities: No Edema Skin: No Rash or Ulcers Neurological: Alert and Oriented x 3, NL Muscle Strength and Tone Result Diagrams: 04/24/17 05:02 04/24/17 05:02 Additional Lab and Data: . Microbiology and Other Data: Microbiology 04/21/17 16:58 Aerobic Blood Culture - Preliminary Blood Venous No Growth Day 2 Anaerobic Blood Culture - Preliminary No Growth Day 2 Blood Culture - Final 04/21/17 16:20 Aerobic Blood Culture - Preliminary Blood Venous No Growth Day 2 Anaerobic Blood Culture - Preliminary No Growth Day 2 Blood Culture - Final Assess/Plan/Problems-Billing Assessment: 71 year old female PMH COPD, CHF, likely obesity hypoventilation syndrome/KEVON, with chronic hypoxic respiratory failure (4-5L home O2), pAfib p/w left hand/ wrist/forearm erythema, tenderness concerning for cellulitis. Course complicated by acute hypoxic respiratory failure with expiratory wheezing concerning for COPD exacerbation. Transferred to ICU for hi flow NC then oversedated on dilauid given prior to ultrasound. Required narcan and Bipap overnight 04/22 for severe hypercapnic respiratory failure. Ventilation and mentation back to baselin. Currently Vanc/ceftriaxone/azithromycin. - Patient Problems (1) Acute respiratory failure with hypoxia Comment: - Resolved. Currently on 5L NC. - Required transfer to ICU for high flow nasal canula thought to be secondary to sedation in setting of severe COPD and hx of diastolic CHF. (2) Cellulitis of hand, left Current Visit: Yes Status: Acute Code(s): L03.114 - CELLULITIS OF LEFT UPPER LIMB SNOMED Code(s): 27468305 Comment: - Resolving. - D/C vancomycin, no evidence of abscess to suggest staph infection. Continue ceftriaxone (with azithromycin for COPD exaccerbation). - US and Xrays without evidence of fluid collection or gas. Bcx no growth to date (3) COPD (chronic obstructive pulmonary disease) Comment: - Slow improvement, - Continue solumedrol 40mg q8. Continue azithromycin/ceftriaxone. Continue duonebs. Continue home formoterol. (4) Type II diabetes mellitus Comment: - BGs well controlled. - Continue lispro SSI coverage with meals. (5) Diastolic congestive heart failure Comment: - Appears euvolemic. - Continue Bumetanide. (6) Afib Comment: - Rate controlled. - Continue xarelto and diltazem. (7) DVT prophylaxis Comment: - Continue xarelto. (8) Full code status Status and Disposition: Inpatient. Anticipate discharge to home when medically stable.
[2017-04-24] MEDS: cefTRIAXone VIAL(*) 1,000 MG in NS 0.9% 50 ML* 50 ML IVPB SCH (10:14)
[2017-04-24 10:34] LABS: Urine Bacteria Absent (Absent); Urine Bilirubin Negative (Negative); Urine Glucose Negative (Negative); Urine Nitrite Negative (Negative)
[2017-04-24] MEDS: Rivaroxaban TAB(*) 20 MG TAB PO SCH (16:08)
[2017-04-24] MEDS: Diltiazem CD CAP* 120 MG PO SCH (16:08)
[2017-04-24] MEDS ORDERED: Metoprolol Tartrate IV* 1 MG/ML 5 ML VIAL IV ONE (17:51)
[2017-04-24] MEDS: Azithromycin IV(*) 500 MG in NS 0.9% 250 ML* 250 ML IVPB SCH (21:21)
[2017-04-24] MEDS: Atorvastatin* 10 MG TAB PO SCH (21:21)
[2017-04-24] MEDS: Nicotine Patch Removal NOTE PATCH OFF SCH (21:22)
[2017-04-24] MEDS ORDERED: Vancomycin(*) 1,000 MG in NS 0.9% 250 ML* 250 ML IVPB SCH (23:00)
[2017-04-25] MEDS: traMADol TAB* 50 MG PO PRN (00:17)
[2017-04-25 05:22] LABS: Hematocrit 34 % (35-47); Hemoglobin 10.3 g/dl (12.0-16.0); Mean Corpuscular HGB Conc 31 g/dl (31-36); Mean Corpuscular Hemoglobin 26 pg (27-31); Mean Corpuscular Volume 86 fL (80-97); Mean Platelet Volume 7 um3 (7.4-10.4); Red Blood Count 3.92 10^6/ul (4.0-5.4); Red Cell Distribution Width 16 % (10.5-15); White Blood Count 11.3 10^3/ul (3.5-10.8)
[2017-04-25 05:37] LABS: BUN/Creatinine Ratio 36.4 (8-20); Calcium 8.4 mg/dL (8.6-10.3); EGFR African American 81.9 (>60); EGFR Non-African American 63.7 (>60); Magnesium 2.3 mg/dL (1.9-2.7); Potassium 4.2 mmol/L (3.5-5.0)
[2017-04-25] MEDS: methylPREDNISolone SOD 40 MG* 1 ML VIAL IV SCH ×2 (05:56→15:20)
--- NOTE | 2017-04-25 07:33 | PN ---
Subjective Date of Service: 04/25/17 Interval History: Ms. Sabillon states that she is feeling well today. She feels that her breathing and mobility are at baseline. She is eager for discharge to home. Objective Active Medications: Albuterol/Ipratropium (Duoneb (Albuterol 2.5 Mg/Ipratropium 0.5 Mg)) 1 neb INH Q2H PRN Atorvastatin Calcium (Lipitor*) 10 mg PO BEDTIME [facility]ANG[facility] Bisacodyl (Dulcolax Supp*) 10 mg NM DAILY PRN Bumetanide (Bumex Tab*) 4 mg PO BID [facility]ANGELINA Dextrose (D50w Syringe 50 Ml*) 12.5 gm IV PUSH .FOR FS < 60 - SS PRN Diltiazem HCl (Cardizem Cd Cap*) 120 mg PO QPM [facility] Docusate Sodium (Colace Cap*) 100 mg PO BID PRN Ferrous Sulfate (Ferrous Sulfate Tab*) 325 mg PO DAILY [facility] Formoterol Fumarate (Perforomist Neb.Soln*(Nf)) 20 mcg INH RT.BID [facility]ANGELINA Gabapentin (Neurontin Cap(*)) 300 mg PO TID PRN Azithromycin 500 mg/ Sodium (Chloride) 250 mls @ 250 mls/hr IVPB Q24H [facility] Ceftriaxone Sodium 1,000 mg/ (Sodium Chloride) 50 mls @ 200 mls/hr IVPB Q24H [facility] Vancomycin HCl 1,000 mg/ (Sodium Chloride) 250 mls @ 166.667 mls/hr IVPB Q12H [facility] Insulin Human Lispro (Humalog*) 0 units SUBCUT ACHS [facility] Methylprednisolone Sodium Succinate (Solu-Medrol 40 Mg) 40 mg IV Q8H [facility]INA Mometasone Furoate/Formoterol Fumar (Dulera 200/5 Mdi*) 2 puff INH QAM [facility] Nicotine (Nicotine Patch 14 Mg/24 Hr*) 1 patch TRANSDERM 0800 [facility] Nystatin (Nystatin Suspension*) 500,000 units PO QID [facility]ANG[facility]INA Nystatin (Nystatin Top Powder*) 1 applic TOPICAL BID [facility]ANGELINA Omeprazole (Prilosec Cap*) 20 mg PO DAILY [facility] Pharmacy Consult (Vancomycin Per Pharmacy*) 1 note FOLLOW UP . PRN Pharmacy Profile Note (Nicotine Patch Removal Note*) 1 note PATCH OFF 2100 [facility] Pharmacy Profile Note (Vancomycin Trough Check) 1 note FOLLOW UP ONCE ONE Polyethylene Glycol/Electrolytes (Miralax*) 17 gm PO DAILY [facility] Rivaroxaban (Xarelto (*)) 20 mg PO QPM [facility] Tiotropium [place] (Spiriva Cap.Inh*) 1 cap INH DAILY [facility] Tramadol HCl (Ultram*) 50 mg PO Q6H PRN Vital Signs: Temp Pulse Resp BP Pulse Ox 97.6 F 86 16 145/65 97 04/25/17 04:15 04/25/17 04:15 04/25/17 04:15 04/25/17 04:15 04/25/17 04:15 Oxygen Devices in Use Now: Nasal Cannula - 4L NC Appearance: Elderly female sitting up in chair in NAD Eyes: No Scleral Icterus Ears/Nose/Mouth/Throat: NL Teeth, Lips, Gums Neck: NL Appearance and Movements; NL JVP, Trachea Midline Respiratory: Symmetrical Chest Expansion and Respiratory Effort, - - Minimal expiratory wheezing bilaterally Cardiovascular: NL Sounds; No Murmurs; No JVD, No Edema Abdominal: NL Sounds; No Tenderness; No Distention Lymphatic: No Cervical Adenopathy Extremities: No Edema Skin: No Rash or Ulcers Neurological: Alert and Oriented x 3, NL Muscle Strength and Tone Nutrition: Taking PO's Result Diagrams: 04/25/17 04:49 04/25/17 04:49 Additional Lab and Data: . Microbiology and Other Data: Microbiology 04/21/17 16:58 Aerobic Blood Culture - Preliminary Blood Venous No Growth Day 2 Anaerobic Blood Culture - Preliminary No Growth Day 2 Blood Culture - Final 04/21/17 16:20 Aerobic Blood Culture - Preliminary Blood Venous No Growth Day 2 Anaerobic Blood Culture - Preliminary No Growth Day 2 Blood Culture - Final Assess/Plan/Problems-Billing Assessment: 71 year old female PMH COPD, CHF, likely obesity hypoventilation syndrome/KEVON, with chronic hypoxic respiratory failure (4-5L home O2), pAfib p/w left hand/ wrist/forearm erythema, tenderness concerning for cellulitis. Course complicated by acute hypoxic respiratory failure with expiratory wheezing concerning for COPD exacerbation. Transferred to ICU for hi flow NC then oversedated on dilauid given prior to ultrasound. Required narcan and Bipap overnight 04/22 for severe hypercapnic respiratory failure. Ventilation and mentation back to baselin. Currently Vanc/ceftriaxone/azithromycin. - Patient Problems (1) Acute respiratory failure with hypoxia Comment: - Resolved. Now on 4L NC, per home routine. - Required transfer to ICU for high flow nasal canula thought to be secondary to sedation in setting of severe COPD and hx of diastolic CHF. (2) Cellulitis of hand, left Current Visit: Yes Status: Acute Code(s): L03.114 - CELLULITIS OF LEFT UPPER LIMB SNOMED Code(s): 77597875 Comment: - Resolving. - D/C vancomycin, no evidence of abscess to suggest staph infection. Switch to keflex (with azithromycin for COPD exaccerbation). - US and Xrays without evidence of fluid collection or gas. Bcx no growth to date (3) COPD (chronic obstructive pulmonary disease) Comment: - Slow improvement, - Start prednisone taper. Continue azithromycin. Continue duonebs. Continue home formoterol. (4) Type II diabetes mellitus Comment: - BGs well controlled. - Resume home metformin and glipizide. (5) Diastolic congestive heart failure Comment: - Appears euvolemic. - Continue Bumetanide. (6) Afib Comment: - Rate controlled. - Continue xarelto and diltazem. (7) DVT prophylaxis Comment: - Continue xarelto. (8) Full code status Status and Disposition: Inpatient. Discharge to home.
[2017-04-25] MEDS: FORMOTEROL INH SCH (08:32)
[2017-04-25] MEDS: Tiotropium CAP.INH* CAP.INH/18 MCG (USE ORDER SET !) INH SCH (08:33)
[2017-04-25] MEDS: Mometasone/Formoter 200/5 MDI INH SCH (08:33)
[2017-04-25] MEDS: Insulin LISPRO* 1 UNITS UNIT SUBCUT SCH ×3 (08:53→18:45)
[2017-04-25] MEDS: Nicotine PATCH 14 MG/24 HR* PATCH TRANSDERM SCH (08:54)
[2017-04-25] MEDS: Bumetanide TAB* 2 MG PO SCH (08:55)
[2017-04-25] MEDS: Ferrous Sulfate TAB* 325 MG PO SCH (08:56)
[2017-04-25] MEDS: Nystatin TOP POWDER* 15 GM BTL TOPICAL SCH (08:56)
[2017-04-25] MEDS: Nystatin SUSPENSION* 100000 UNITS/ML 5 ML UDC PO SCH ×3 (08:56→17:17)
[2017-04-25] MEDS: Cephalexin CAP* 500 MG PO SCH ×3 (08:56→17:18)
[2017-04-25] MEDS: Polyethylene Glycol 3350* 17 GM PACKET PO SCH (08:57)
[2017-04-25] MEDS: Omeprazole CAP* 20 MG PO SCH (08:57)
[2017-04-25] MEDS ORDERED: Azithromycin TAB* 250 MG PO SCH (09:00)
[2017-04-25] MEDS: Triamcinolone 0.5% OINT * 15 GM TUBE TOPICAL SCH (09:51)
[2017-04-25 15:28] VITALS: BP 143/60
[2017-04-25] MEDS: Rivaroxaban TAB(*) 20 MG TAB PO SCH (17:18)
[2017-04-25] MEDS: Diltiazem CD CAP* 120 MG PO SCH (17:18)
--- NOTE | 2017-04-25 18:57 | DS ---
CC: Dr. Rhodes* [facility] MEDICINE DISCHARGE SUMMARY: DATE OF ADMISSION: 04/21/17 DATE OF DISCHARGE: 04/25/17 PRIMARY CARE PHYSICIAN: Dr. Rhodes. ATTENDING PHYSICIAN: Dr. Jessica Rich* (dictation provided by Glendy Holt NP) . PRIMARY DIAGNOSES: 1. Cellulitis to left upper extremity. 2. Acute hypoxic respiratory failure secondary to sedation with a history of COPD. SECONDARY DIAGNOSES: 1. Chronic obstructive pulmonary disease with chronic hypercapnic respiratory failure. 2. History of chronic diastolic congestive heart failure. 3. Type 2 diabetes. 4. Paroxysmal atrial fibrillation. 5. History of gastrointestinal bleed. 6. Hyperlipidemia. 7. Obstructive sleep apnea. 8. Depression. 9. Morbid obesity. 10. History of left total knee replacement. MEDICATIONS: At the time of discharge: 1. Mometasone/formoterol 200/5 two puffs inhaled b.i.d. 2. Diltiazem ER 120 mg p.o. daily. 3. Cyclobenzaprine 10 mg p.o. q.8 hours p.r.n. 4. Citalopram 20 mg p.o. daily. 5. Bumetanide 4 mg p.o. b.i.d. 6. Albuterol 2 puffs inhaled q.4 hours p.r.n. 7. Gabapentin as instructed 2 to 3 tablets as needed for pain. 8. Ferrous sulfate 325 to 650 mg p.o. daily. 9. Docusate 100 mg p.o. b.i.d. p.r.n. 10. Simvastatin 20 mg p.o. at bedtime. 11. Rivaroxaban 20 mg p.o. daily. 12. MiraLAX 1 dose p.o. daily. 13. Omeprazole 20 mg p.o. daily. 14. Trazodone 1 to 2 tabs p.o. at bedtime p.r.n. 15. Glipizide 2.5 mg p.o. q.a.m. 16. Clonazepam 1 mg p.o. at bedtime. 17. Spiriva 1 cap inhaled daily. 18. Metformin 500 mg p.o. b.i.d. 19. Tramadol 50 mg p.o. q.6 hours. 20. Guanfacine 1200 mg p.o. b.i.d. 21. Potassium chloride 30 mEq p.o. b.i.d. 21. Nystatin swish and swallow as needed. 22. Nicotine patch 14 mg daily. 23. Betamethasone applied b.i.d. 24. Aspirin 81 mg p.o. daily. 25. Tylenol 650 mg p.o. q.6 hours p.r.n. 26. Prednisone starting at 40 mg, tapered down to 10 mg. 27. Cephalexin 500 mg p.o. 4 times a day. 28. Azithromycin 250 mg p.o. daily. HOSPITAL COURSE: Ms. Sabillon is a 71-year-old female with past medical history of diastolic CHF, COPD, and type 2 diabetes, who presented to the hospital on with concern for left hand and forearm swelling with pain and erythema. Please see the dictated H and P from Doroteo To MD for complete details. In brief, the patient had developed these symptoms over the past 3 days and it was felt that she likely has cellulitis. She had essentially normal white blood cell count at 11.5. Her ESR was 56. Her CRP was 73.26. She was afebrile. Ms. Sabillon was admitted to the hospital and initially treated with ceftriaxone and azithromycin. She did have a soft tissue ultrasound on 04/22/17, which showed soft tissue swelling without visualized abscess collection. She also had a wrist and hand x-ray that showed chondral calcinosis with no abnormal erosions. Late afternoon on 04/22/17, the patient was working with Physical Therapy when she acutely desaturated down into the 50s, requiring 15 liter face mask. The patient was transferred to the intensive care unit for Vapotherm. It was felt that perhaps she was having COPD exacerbation and was given Solu- Medrol 125 mg. Chest x-ray at that time showed no infiltrate. The patient later received Dilaudid prior to an ultrasound procedure and became lethargic. She responded well to Narcan and BiPAP. She at that time had a pH of 7.05 with a PCO2 of 124 and pO2 of 103, showing acute hypercapnic respiratory failure. She responded well to treatment with BiPAP and came out of the unit on 04/23/17. Ms. Sabillon is now doing well. She is back to her baseline 4 liter of nasal cannula. I think her respiratory distress was due to COPD exacerbation and was worsened by narcotics, but she is back to her baseline. She is also back to baseline in terms of mobility in the room. Her cellulitis has improved greatly. She had some mild redness and swelling along the arm, but it is dramatically improved. Our plans are for her to be discharged to home on Keflex for her cellulitis and also on prednisone and azithromycin for her COPD. DISPOSITION: Home. DIET: Consistent carbohydrate, low fat, low salt. ACTIVITY: As tolerated. FOLLOWUP PLANS: Please follow up with Dr. Rhodes. The patient will have an appointment scheduled. TIME SPENT: Approximately 60 minutes were spent on the discharge of this patient, more than half the time was spent with the patient at the bedside reviewing the events leading up to this hospitalization, performing the physical examination, and reviewing the plan of care. GLENDY HOLT NP [id number]/CPS #: [id number] TERRY
[2017-04-26] MEDS ORDERED: Vancomycin Trough Check NOTE FOLLOW UP ONE (10:30)
--- NOTE | 2017-04-26 11:30 | RAD ---
HISTORY: Pain and swelling of the left hand with limited left upper extremity range of motion. COMPARISON: None. TECHNIQUE: Multiple transverse and longitudinal ultrasound images were obtained of the veins of the left upper cavity using grayscale, color Doppler, and spectral Doppler imaging with and without compression and with augmentation. FINDINGS: According to the commercial relief driver's note, the patient was unable to move her arm in a position where any of the left upper extremity veins distal to the subclavian vein couldn't be imaged. VEINS: The left subclavian vein exhibits appropriate augmentation and phasicity. Evidence of adequate flow is identified in the right internal jugular and right subclavian vein as well. IMPRESSION: According to the commercial relief driver's note, the patient could not move her arm in a way that allowed for sonographic evaluation of any veins beyond the left subclavian vein. The bilateral subclavian and internal jugular veins are normal.
== END 2017-04-25 19:00 | disposition home health service (06) | DRG 602 ==
LOC: ED 15:19 → MEDTELE 18:51 → ICU 04-22 11:58 → MEDTELE 04-23 23:54
PROVIDERS: ADMIT Internal Medicine; ATTEND Hospitalist
PROC: 5A09457 Assistance with Respiratory Ventilation, 24-96 Consecutive Hours, Continuous Positive Airway Pressure (ICD-10-PCS; principal; 2017-04-22)
DX: L03.114 Cellulitis of left upper limb (principal); J96.21 Acute and chronic respiratory failure with hypoxia; I50.32 Chronic diastolic (congestive) heart failure; I11.0 Hypertensive heart disease with heart failure; J96.22 Acute and chronic respiratory failure with hypercapnia; J44.1 Chronic obstructive pulmonary disease with (acute) exacerbation; Z68.41 Body mass index [BMI] 40.0-44.9, adult; I48.0 Paroxysmal atrial fibrillation; Z96.652 Presence of left artificial knee joint; E66.01 Morbid (severe) obesity due to excess calories; F32.9 Major depressive disorder, single episode, unspecified; G47.33 Obstructive sleep apnea (adult) (pediatric); E78.5 Hyperlipidemia, unspecified; E11.9 Type 2 diabetes mellitus without complications; Z79.01 Long term (current) use of anticoagulants; Z79.84 Long term (current) use of oral hypoglycemic drugs; Z79.82 Long term (current) use of aspirin; M11.242 Other chondrocalcinosis, left hand; Z88.8 Allergy status to other drugs, medicaments and biological substances; Z80.9 Family history of malignant neoplasm, unspecified; G89.29 Other chronic pain; E78.00 Pure hypercholesterolemia, unspecified; I48.91 Unspecified atrial fibrillation; I25.10 Atherosclerotic heart disease of native coronary artery without angina pectoris; M19.90 Unspecified osteoarthritis, unspecified site; Z86.14 Personal history of Methicillin resistant Staphylococcus aureus infection; F41.9 Anxiety disorder, unspecified; Z82.49 Family history of ischemic heart disease and other diseases of the circulatory system; F17.210 Nicotine dependence, cigarettes, uncomplicated
CPT/HCPCS: 36415; 36600; 71010; 80048; 80053; 80202; 81003; 81015; 82550; 82803; 83605; 83735; 83880; 84145; 84484; 84550; 85025; 85384; 85610; 85652; 85730; 86140; 87040; 87086; 87641; 93005; 94640; 94660; 94760; 99406; A9270-GY; J0456; J0690; J0696; J2310; J2920; J2930; J3370; J7512

== ENCOUNTER 2017-05-06 15:32 | Inpatient (IN) | payer MEDICARE ==
[2017-05-06] MEDS ORDERED: Morphine INJ* 10 MG/ML 1 ML CARPUJECT IV ONE (16:44)
[2017-05-06] MEDS: NS 0.9% 1000 ML* 1,000 ML IV ONE ×2 (17:20→22:02)
[2017-05-06 17:27] LABS: Hematocrit 38 % (35-47); Hemoglobin 11.8 g/dl (12.0-16.0); Mean Corpuscular HGB Conc 31 g/dl (31-36); Mean Corpuscular Hemoglobin 26 pg (27-31); Mean Corpuscular Volume 84 fL (80-97); Mean Platelet Volume 6 um3 (7.4-10.4); Red Blood Count 4.55 10^6/ul (4.0-5.4); Red Cell Distribution Width 16 % (10.5-15); White Blood Count 13.4 10^3/ul (3.5-10.8)
[2017-05-06 17:40] LABS: Albumin 3.4 g/dL (3.2-5.2); BUN/Creatinine Ratio 12.6 (8-20); C Reactive Protein 37.88 mg/L (< 5.00); Calcium 8.7 mg/dL (8.6-10.3); EGFR Non-African American 58.3 (>60); Globulin 3.3 g/dL (2-4); Potassium 3.7 mmol/L (3.5-5.0); Total Bilirubin 0.4 mg/dL (0.2-1.0); Total Protein 6.7 g/dL (6.4-8.9)
[2017-05-06 18:14] LABS: Erythrocyte Sed Rate 70 mm/Hr (0-40)
--- NOTE | 2017-05-06 18:30 | RAD ---
INDICATION: Chest pain COMPARISON: PA and lateral chest x-ray dated February 03, 2017 TECHNIQUE: PA and lateral views of the chest were obtained. FINDINGS: There is a mild degree of cardiomegaly similar in appearance the previous chest x-ray. There is mild calcified atherosclerosis overlying the arch of the aorta. The pulmonary vasculature appears mildly engorged and indistinct. This is similar in appearance to the prior chest x-ray. On the lateral view chest x-ray there is a 2 cm retrocardiac density that may correspond to a slightly larger density seen on the previous chest x-ray. Lungs appear hyperaerated with flattened diaphragm on the lateral view. The lungs are otherwise clear. Visualized bones are normal for the patient's age. There is no radiographic evidence of free air beneath the diaphragm IMPRESSION: 1. CHRONIC CHEST X-RAY FINDINGS INCLUDE THE APPEARANCE OF COPD POSSIBLY WITH OVERLYING CONGESTIVE HEART FAILURE. 2. A 2 CM RETROCARDIAC DENSITY IS SEEN IN THE LATERAL VIEW WHICH APPEARS TO CORRESPOND TO A SLIGHTLY LARGER DENSITY SEEN ON THE FEBRUARY 03, 2017 CHEST X-RAY. THE ETIOLOGY IS NOT ON CHEST X-RAY BUT THE FOCUS APPEARS TO BE GETTING SMALLER.
--- NOTE | 2017-05-06 18:49 | ED ---
Jayjay Travis Angela, scribed for Eliazar Campo MD on 05/06/17 at 1645 . Skin Complaint - HPI Summary HPI Summary: This pt is a 71 y/o female presenting to [facility] c/o erythematous rash on bilateral legs and on abd x1 month. Pt states that her rash is pruritic and painful. Pt reports her rash today is more erythematous than usual. She states she didn't feel well today. Pt denies fever. She is a current smoker. PMHx: COPD , CHF, DM. Allergies: ibuprofen and Vioxx. - History of Current Complaint Chief Complaint: EDGeneral Time Seen by Provider: 05/06/17 16:28 Stated Complaint: RASH Hx Obtained From: Patient Onset/Duration: Started Weeks Ago Skin Exposure Onset/Duration: Weeks Ago Timing: Lasting Weeks Pain Intensity: 8 Skin Location: Abdomen, Leg - bilateral Character: Pruritus, Pain, Redness, Painful Aggravating Symptom(s): Nothing Alleviating Symptom(s): Nothing Associated Signs & Symptoms: Rash, Tenderness - Additional Pertinent History Primary Care Physician: JUHI - Allergy/Home Medications Allergies/Adverse Reactions: Allergies Allergy/AdvReac Type Severity Reaction Status Date / Time Ibuprofen Allergy Unknown Verified 02/03/17 21:48 Reaction Details Rofecoxib [From Vioxx] Allergy Unknown Verified 02/03/17 21:48 Reaction Details Home Medications: Home Medications predniSONE TAB* [Deltasone TAB*] 10 mg PO DAILY 05/06/17 [History Confirmed 01/15] PMH/Surg Hx/FS Hx/Imm Hx Endocrine/Hematology History: Reports: Hx Anticoagulant Therapy - xarelto, Hx Diabetes, Hx Anemia Denies: Hx Blood Disorders, Hx Blood Transfusions, Hx Bone Marrow Disease, Hx Systemic Lupus Erythematosus, Hx Sickle Cell Disease, Hx Thyroid Disease, Hx Unexplained Bleeding, Other Endocrine/Hematological Disorders Cardiovascular History: Reports: Hx Congestive Heart Failure, Hx Coronary Artery Disease, Hx Hypercholesterolemia, Hx Hypertension, Other Cardiovascular Problems/Disorders - A-Fib, CAD, IDDM, OBESITY Denies: Hx Aneurysm, Hx Angina, Hx Angioplasty, Hx Auto Implanted Cardiovert Defib, Hx Cardiac Arrest, Hx Cardiomegaly, Hx Congenital Heart Disease, Hx Deep Vein Thrombosis, Hx Embolism, Hx Hypotension, Hx Myocardial Infarction, Hx Pacemaker/ICD, Hx Peripheral Vascular Disease, Hx Rheumatic Fever, Hx Syncope, Hx Valvular Heart Disease Respiratory History: Reports: Hx Asthma, Hx Chronic Obstructive Pulmonary Disease (COPD), Hx Pleural Effusion, Hx Pneumonia, Hx Seasonal Allergies, Hx Sleep Apnea Denies: Hx Chronic Bronchitis, Hx Cystic Fibrosis, Hx Lung Cancer, Hx Pulmonary Edema, Hx Pulmonary Embolism, Other Respiratory Problems/Disorders GI History: Reports: Hx Gastrointestinal Bleed Denies: Hx Cirrhosis, Hx Crohn's Disease, Hx Diverticulosis, Hx Gall Bladder Disease, Hx Gastroesophageal Reflux Disease, Hx Hiatal Hernia, Hx Irritable Bowel, Hx Jaundice, Hx Obstructive Bowel, Hx Ileostomy, Hx Pyloric Stenosis, Hx Ulcer, Other GI Disorders History: Denies: Hx Acute Renal Failure, Hx Benign Prostatic Hyperplasia, Hx Chronic Renal Failure, Hx Dialysis, Hx Kidney Infection, Hx Kidney Stones, Hx Renal Disease, Other Problems/Disorders Musculoskeletal History: Reports: Hx Arthritis, Hx Back Problems, Other Musculoskeletal History - neck stiffness Denies: Hx Bursitis, Hx Congenital Bone Abnormalities, Hx Fibromyalgia, Hx Gout, Hx Orthopedic Injury, Hx Osteoporosis, Hx Scoliosis, Hx Tendonitis Sensory History: Reports: Hx Contacts or Glasses Denies: Hx Cataracts, Hx Eye Injury, Hx Eye Prosthesis, Hx Glaucoma, Hx Legally Blind, Hx Macular Degeneration, Hx Vision Problem, Hx Deafness, Hx Hearing Aid, Hx Hearing Problem, Other Sensory Impairments Opthamlomology History: Reports: Hx Contacts or Glasses Denies: Hx Cataracts, Hx Eye Injury, Hx Eye Prosthesis, Hx Glaucoma, Hx Legally Blind, Hx Macular Degeneration, Hx Vision Problem, Other Sensory Impairments Neurological History: Denies: Hx Dementia, Hx Developmental Delay, Hx Headaches, Hx Migraine, Hx Nerve Disease, Hx Seizures, Hx Spinal Cord Injury, Hx Transient Ischemic Attacks (TIA), Other Neuro Impairments/Disorders Psychiatric History: Reports: Hx Anxiety, Hx Depression - Surgical History Surgery Procedure, Year, and Place: Knee replacement Hx Anesthesia Reactions: No Infectious Disease History: No Infectious Disease History: Reports: Hx of Known/Suspected MRSA Denies: Hx Clostridium Difficile, Hx Hepatitis, Hx Human Immunodeficiency Virus (HIV), Hx Shingles, Hx Tuberculosis, Hx Known/Suspected VRE, Hx Known/ Suspected VRSA, History Other Infectious Disease, Traveled Outside the [place] in Last 30 Days - Family History Known Family History: Positive: Cardiac Disease Family History: R & n/C - Social History Alcohol Use: None Hx Substance Use: No Substance Use Type: Reports: None Hx Tobacco Use: Yes Smoking Status (MU): Current Every Day Smoker Type: Cigarettes Length of Time of Smoking/Using Tobacco: 52 Have You Smoked in the Last Year: Yes Review of Systems Negative: Fever, Chills Negative: Chest Pain Negative: Shortness Of Breath, Cough Gastrointestinal: Negative Positive: Rash - throughout body, in bilateral legs and abd Neurological: Negative All Other Systems Reviewed And Are Negative: Yes Physical Exam Triage Information Reviewed: Yes Vital Signs On Initial Exam: Initial Vitals Temp Pulse Resp BP Pulse Ox 98 F 104 22 125/60 96 05/06/17 15:47 05/06/17 15:47 05/06/17 15:47 05/06/17 15:47 05/06/17 15:47 Vital Signs Reviewed: Yes Appearance: Positive: Well-Appearing, No Pain Distress Skin: Positive: Other - extensive cellulitis to legs, and lower abdomen and perineal area. Head/Face: Positive: Normal Head/Face Inspection Eyes: Positive: EOMI ENT: Positive: Normal ENT inspection Neck: Positive: Nontender Respiratory/Lung Sounds: Positive: Clear to Auscultation, Breath Sounds Present Cardiovascular: Positive: RRR. Negative: Murmur Abdomen Description: Positive: Other: - large panniclus with cellulitis extensive to it. Musculoskeletal: Positive: Edema Left - with cellulitis lower legs, Edema Right - with cellulitis lower legs Neurological: Positive: Sensory/Motor Intact, Alert, Oriented to Person Place, Time, CN Intact II-III Psychiatric: Positive: Normal - Veronica Coma Scale Best Eye Response: 4 - Spontaneous Best Motor Response: 6 - Obeys Commands Best Verbal Response: 5 - Oriented Diagnostics - Vital Signs Vital Signs Temp Pulse Resp BP Pulse Ox 05/06/17 15:47 98 F 104 22 125/60 96 - Laboratory Result Diagrams: 05/06/17 17:17 05/06/17 17:17 Lab Statement: Any lab studies that have been ordered have been reviewed, and results considered in the medical decision making process. - Radiology Chest XR Xray Interpretation: Positive (See Comments) - IMPRESSION: 1. Chronic chest x- ray findings include the apperance of COPD possibly with overlying congestive heart failure. 2. A 2 cm retrocardiac density is seen in the lateral view which appears to correspond to a slightly larger density seen on the February 03, 2017 chest x-ray. The etiology is not on chest x-ray but the focus appears to be getting smaller. ED physician has reviewed this radiology report and agrees. Radiology Interpretation Completed By: Radiologist - EKG 1732 Cardiac Rate: NL - 91 bpm EKG Rhythm: Sinus Rhythm EKG Interpretation: Minimal ST elevation, inferior leads. Re-Evaluation - Re-Evaluation First Eval Re-Evaluation Time: 18:46 Change: Improved Comment: Pain is much improved after her IV morphine. Course/Dx - Course Assessment/Plan: Pt is a 71 y/o female who presents with erythematous, pruritic and painful rash on bilateral legs and abd x1 month, spreading and worsening. Bloodwork, chest XR, and EKG were obtained. Chest XR reveals 1. Chronic chest x- ray findings include the apperance of COPD possibly with overlying congestive heart failure. 2. A 2 cm retrocardiac density is seen in the lateral view which appears to correspond to a slightly larger density seen on the February 03, 2017 chest x-ray. The etiology is not on chest x-ray but the focus appears to be getting smaller. - Diagnoses Provider Diagnoses: Cellulitis Discharge - Discharge Plan Condition: Good Disposition: ADMITTED TO [facility] The documentation as recorded by the Jayjay deluca Angela accurately reflects the service I personally performed and the decisions made by me, Eliazar Campo MD.
[2017-05-06] MEDS ORDERED: Vancomycin(*) 1,000 MG VIAL IVPB SCH (19:00)
[2017-05-06] MEDS ORDERED: Vancomycin 1500 MG IV - x ONCE IVPB ONE ×2 (19:00)
[2017-05-06] MEDS ORDERED: Levalbuterol HFA INHALER* 1 PUFF MDI INH PRN (19:12)
[2017-05-06] MEDS ORDERED: traZODone TAB* 100 MG PO PRN (19:12)
[2017-05-06] MEDS ORDERED: Gabapentin CAP(*) 300 MG PO PRN (19:12)
[2017-05-06 20:11] LABS: Urine Bacteria 1+ (Absent); Urine Bilirubin Negative (Negative); Urine Glucose Negative (Negative); Urine Nitrite Negative (Negative)
--- NOTE | 2017-05-06 21:33 | HP ---
HISTORY AND PHYSICAL: DATE OF ADMISSION: 05/06/17 TIME OF ADMISSION: 7:30 p.m. CHIEF COMPLAINT: Rash. HISTORY OF PRESENT ILLNESS: This is a 71-year-old female with an extensive past medical history, who was recently discharged from the hospital, presenting with 4 days of a diffuse rash on her abdomen, groin, legs, and chest. She was discharged from the hospital on 04/25/17 for cellulitis to her left upper extremity and reports complete healing of her left upper extremity and had been doing fine for several days until 4 days ago when she developed painful and itchy erythema on her abdomen, in her groin, on her vulva, and buttocks that has now extended down her legs, upper abdomen and under her chest. She does not have any fevers at home and the rash is associated with a decreased appetite and some shoulder pain. She has had no other systemic symptoms. She has had no other new medications and she has never had anything like this before. She tried A and D ointment and Vaseline on it, but nothing has made a difference. PAST MEDICAL HISTORY: 1. Chronic hypoxic and hypercapnic respiratory failure. 2. Type 2 diabetes. 3. Heart failure with preserved ejection fraction. 4. Paroxysmal AFib. 5. Obstructive sleep apnea. 6. Depression. 7. Morbid obesity. 8. Emphysema. PAST SURGICAL HISTORY: Left total knee replacement. HOME MEDICATIONS: 1. Cardizem ER 120 mg p.o. daily. 2. Mometasone/formoterol 200/5 mg 2 puffs inhaled b.i.d. 3. Cyclobenzaprine 10 mg p.o. q.8 p.r.n. 4. Citalopram 20 mg p.o. daily. 5. Bumex 4 mg p.o. b.i.d. 6. Albuterol 2 puffs inhaled q.4 p.r.n. 7. Gabapentin 300 mg q.8. 8. Ferrous sulfate 325 mg daily. 9. Docusate 100 mg p.o. b.i.d. p.r.n. 10. Simvastatin 20 mg p.o. q.h.s. 11. Xarelto 20 mg p.o. daily. 12. MiraLAX daily. 13. Omeprazole 20 mg daily. 14. Trazodone p.o. q.h.s. p.r.n. insomnia. 15. Glipizide 2.5 mg p.o. daily. 16. Klonopin 1 mg p.o. q.h.s. 17. Spiriva 1 cap inhaled daily. 18. Metformin 500 mg p.o. b.i.d. 19. Tramadol 50 mg p.o. q.6. 20. Guaifenesin 1200 mg p.o. b.i.d. 21. KCl 30 mEq p.o. b.i.d. 22. Nystatin swish and swallow p.r.n. 23. Nicotine patch 14 mg daily. 24. Betamethasone applied b.i.d. 25. Aspirin 81 mg p.o. daily. 26. Prednisone taper, currently on 10 mg daily. Please note that she had been on Keflex and azithromycin until 4 days ago. SOCIAL HISTORY: She is a current smoker. She denies alcohol or other illicit drug use. She lives alone. Her health-care proxy is her son-in-law, Zbigniew. Zbigniew's phone number is [phone]. REVIEW OF SYSTEMS: General: Denies fevers, chills, weight loss, or weight gain. HEENT: Denies blurry vision. Denies headaches. Denies sore throat or trouble swallowing. Chest: Denies chest pain, shortness of breath, palpitations. Abdomen: Denies nausea, vomiting, constipation, or diarrhea. Extremities: Notes some occasional joint pain. Complains of extensive rash. Skin: Positive for itching and burning. Neurologic: Denies weakness, numbness , or tingling. PHYSICAL EXAMINATION GENERAL: Alert, no distress, obese woman. VITAL SIGNS: Temperature 98 degrees, heart rate 104, respiratory rate 22, pulse ox 96% on 3 L, and blood pressure 125/60. HEENT: Moist mucosa. Pupils equal, round, and reactive to light. No mucosal lesions. NECK: No JVP. No cervical lymphadenopathy. CHEST: Scattered expiratory wheezes. No rhonchi or rales. HEART: Regular rate and rhythm. No murmurs. PMI is nondisplaced. ABDOMEN: Obese, soft, nontender, nondistended. EXTREMITIES: No edema. Pulses 2+ bilaterally. SKIN: Severe erythema and excoriation over entire groin, vulva, and buttocks that extends up to her mid abdomen and down to her mid thighs with well demarcated pustules and papules scattered over her legs and chest. The patches are blanchable and there is no open skin. DIAGNOSTIC STUDIES/LAB DATA: White blood cell is 13.4, hemoglobin 11.8, platelets 277. Sodium 133, potassium 3.7, chloride 88, bicarb 41, BUN 12, creatinine 0.95. IMPRESSION: This is a 71-year-old female with an extensive past medical history , who was recently admitted to the hospital for left upper extremity cellulitis , returning with a diffuse excoriated rash on her groin, abdomen, buttocks, legs , and chest. 1. Disseminated cutaneous oracio. This appears to have originated in her groin and has extended to her torso and extremities. Given the extent of the cutaneous involvement, I will treat her with IV fluconazole as well as topical nystatin powder. There may be some superimposed cellulitis, so vancomycin is not unreasonable. She received a dose of this in the emergency department and we will continue it tomorrow. She has no other evidence of rheumatologic involvement or fixed drug eruption symptoms. Check blood cultures and treat symptomatically. 2. Chronic hypoxic and hypercapnic respiratory failure. She is on her home dose of oxygen at 3 L per minute. Continue her prednisone taper as prescribed from her discharge. She is currently on 10 mg daily. Her bicarb of 41 supports her chronic hypercapnia. 3. Type 2 diabetes. She is on oral hypoglycemics only. We will hold these while she is admitted. 4. Heart failure with preserved ejection fraction. She appears euvolemic at this time. Continue home dose of Bumex. 5. Paroxysmal atrial fibrillation. She is currently in normal sinus rhythm. Continue Cardizem and Xarelto. 6. Obstructive sleep apnea. Continue home CPAP. DISPOSITION: Ms. Sabillon would not like to be resuscitated or intubated should the need arise. TIME SPENT: Greater than 60 minutes were spent on this admission, greater than half of the time was spent [id number] with the patient. [id number]/[facility] #: [id number] MTDD
[2017-05-06] MEDS: CMCS: Formoterol 20 MCG/2ML NEB (NF) 10 MCG/ML NEB.SOLN INH SCH (21:38)
[2017-05-06] MEDS: Fluconazole 100 MG IVPREMIX(*) 100 MG/50 ML BAG IVPB SCH (22:02)
[2017-05-06] MEDS: Ferrous Sulfate TAB* 325 MG PO SCH (22:13)
[2017-05-06] MEDS: Nystatin TOP POWDER* 15 GM BTL TOPICAL SCH (22:14)
[2017-05-07 07:02] LABS: Hematocrit 35 % (35-47); Hemoglobin 11.1 g/dl (12.0-16.0); Mean Corpuscular HGB Conc 31 g/dl (31-36); Mean Corpuscular Hemoglobin 26 pg (27-31); Mean Corpuscular Volume 84 fL (80-97); Mean Platelet Volume 6 um3 (7.4-10.4); Red Blood Count 4.21 10^6/ul (4.0-5.4); Red Cell Distribution Width 16 % (10.5-15); White Blood Count 8.4 10^3/ul (3.5-10.8)
[2017-05-07 07:19] LABS: Albumin 2.9 g/dL (3.2-5.2); BUN/Creatinine Ratio 10.7 (8-20); Calcium 8.1 mg/dL (8.6-10.3); EGFR African American 86.5 (>60); EGFR Non-African American 67.2 (>60); Globulin 2.8 g/dL (2-4); Potassium 3.7 mmol/L (3.5-5.0); Total Bilirubin 0.3 mg/dL (0.2-1.0); Total Protein 5.7 g/dL (6.4-8.9)
[2017-05-07] MEDS: Mometasone/Formoter 200/5 MDI INH SCH (07:25)
[2017-05-07] MEDS: CMCS: Formoterol 20 MCG/2ML NEB (NF) 10 MCG/ML NEB.SOLN INH SCH ×2 (07:30→20:00)
[2017-05-07] MEDS: Tiotropium CAP.INH* CAP.INH/18 MCG (USE ORDER SET !) INH SCH (07:33)
[2017-05-07] MEDS ORDERED: Citalopram TAB* 20 MG PO SCH (09:00)
[2017-05-07] MEDS: predniSONE TAB* 10 MG PO SCH (09:30)
[2017-05-07] MEDS: Ferrous Sulfate TAB* 325 MG PO SCH ×2 (09:30→21:42)
[2017-05-07] MEDS: Diltiazem CD CAP* 120 MG PO SCH (09:30)
[2017-05-07] MEDS: Omeprazole CAP* 20 MG PO SCH (09:30)
[2017-05-07] MEDS: Bumetanide TAB* 2 MG PO SCH ×2 (09:30→16:49)
[2017-05-07] MEDS ORDERED: Vancomycin per Pharmacy* NOTE FOLLOW UP PRN (10:46)
[2017-05-07] MEDS ORDERED: Vancomycin(*) 1,500 MG in NS 0.9% 250 ML* 250 ML IVPB ONE (11:00)
[2017-05-07] MEDS: Nystatin TOP POWDER* 15 GM BTL TOPICAL SCH ×3 (11:14→23:50)
[2017-05-07] MEDS ORDERED: Albuterol/Ipratropium NEB.SOL* Albuterol 2.5 MG/Ipratropium 0.5 MG 3 ML INH PRN (12:04)
[2017-05-07] MEDS ORDERED: Bumetanide IV* 0.25 MG/ML 4 ML VIAL SLOW PUSH ONE (12:05)
[2017-05-07] MEDS: Rivaroxaban TAB(*) 20 MG TAB PO SCH (16:49)
--- NOTE | 2017-05-07 17:42 | PN ---
Subjective Date of Service: 05/07/17 Interval History: No complaints today, feels the rash is getting better, but it is still very painful, especially in her groin. No fevers, chills, diarrhea, nausea, shortness of breath, cough, or orthopnea. Family History: Unchanged from Admission Social History: Unchanged from Admission Past Medical History: Unchanged from Admission Objective Active Medications: Albuterol/Ipratropium (Duoneb (Albuterol 2.5 Mg/Ipratropium 0.5 Mg)) 1 neb INH Q4H PRN PRN Reason: SOB/WHEEZING Bumetanide (Bumex Tab*) 4 mg PO 0800,1600 [facility] Last Admin: 05/07/17 16:49 Dose: 4 mg Diltiazem HCl (Cardizem Cd Cap*) 120 mg PO DAILY [facility] Last Admin: 05/07/17 09:30 Dose: 120 mg Ferrous Sulfate (Ferrous Sulfate Tab*) 325 mg PO BID [facility] Last Admin: 05/07/17 09:30 Dose: 325 mg Formoterol Fumarate (Perforomist Neb.Soln*(Nf)) 1 mcg INH RT.BID [facility] Last Admin: 05/07/17 07:30 Dose: Not Given Gabapentin (Neurontin Cap(*)) 300 mg PO TID PRN PRN Reason: PAIN Fluconazole/Sodium Chloride (Diflucan 100 Mg Ivpremix(*)) 100 mg in 50 mls @ 100 mls/hr IVPB Q24H [facility] Last Admin: 05/06/17 22:02 Dose: 100 mls/hr Vancomycin HCl 1,250 mg/ (Sodium Chloride) 250 mls @ 166.667 mls/hr IVPB Q12H [facility] Influenza Virus Vaccine (Fluarix *Quad* 2017*) 0.5 ml IM .ONCE ONE Stop: 05/08/17 09:01 Levalbuterol HCl (Xopenex Hfa Inhaler*) 2 puff INH Q4HR PRN PRN Reason: WHEEZING Last Admin: 05/07/17 11:56 Dose: 2 puff Mometasone Furoate/Formoterol Fumar (Dulera 200/5 Mdi*) 2 puff INH QAM [facility] Last Admin: 05/07/17 07:25 Dose: 2 puff Nystatin (Nystatin Top Powder*) 1 applic TOPICAL TID [facility] Last Admin: 05/07/17 15:38 Dose: Not Given Omeprazole (Prilosec Cap*) 20 mg PO DAILY@0730 [facility] Last Admin: 05/07/17 09:30 Dose: 20 mg Pharmacy Consult (Vancomycin Per Pharmacy*) 1 note FOLLOW UP . PRN PRN Reason: PER PROTOCOL Pharmacy Profile Note (Vancomycin Trough Check) 1 note FOLLOW UP 929 ONE Stop: 05/09/17 09:31 Prednisone (Deltasone Tab*) 10 mg PO DAILY WITH MEAL [facility] Last Admin: 05/07/17 09:30 Dose: 10 mg Rivaroxaban (Xarelto (*)) 20 mg PO DAILY@1700 [facility] Last Admin: 05/07/17 16:49 Dose: 20 mg Tiotropium [place] (Spiriva Cap.Inh*) 1 cap INH DAILY [facility] Last Admin: 05/07/17 07:33 Dose: Not Given Trazodone HCl (Desyrel Tab*) 100 mg PO BEDTIME PRN PRN Reason: SLEEP Vital Signs 05/06/17 05/06/17 05/06/17 19:50 20:00 20:30 Temperature Pulse Rate 95 94 97 Respiratory Rate Blood Pressure 115/47 124/41 (mmHg) O2 Sat by Pulse 94 95 94 Oximetry 05/06/17 05/07/17 05/07/17 20:55 00:01 03:39 Temperature 98.3 F 98.1 F 98.1 F Pulse Rate 96 91 91 Respiratory 19 18 18 Rate Blood Pressure 135/66 115/57 117/47 (mmHg) O2 Sat by Pulse 93 96 97 Oximetry 05/07/17 05/07/17 05/07/17 07:22 09:00 11:37 Temperature 97.8 F 98.0 F Pulse Rate 96 95 Respiratory 16 22 24 Rate Blood Pressure 139/53 111/40 (mmHg) O2 Sat by Pulse 95 86 Oximetry 05/07/17 15:22 Temperature 97.5 F Pulse Rate 88 Respiratory 20 Rate Blood Pressure 125/75 (mmHg) O2 Sat by Pulse 95 Oximetry Oxygen Devices in Use Now: Nasal Cannula Appearance: obese, alert, no distress Eyes: No Scleral Icterus, PERRLA Ears/Nose/Mouth/Throat: NL Teeth, Lips, Gums, Clear Oropharnyx Neck: - - JVP ~14 cm Respiratory: Symmetrical Chest Expansion and Respiratory Effort, - - scattered expiratory wheezes Cardiovascular: NL Sounds; No Murmurs; No JVD Abdominal: NL Sounds; No Tenderness; No Distention, No Hepatosplenomegaly Lymphatic: No Cervical Adenopathy Extremities: No Edema Skin: - - diffuse, well-demarcated patches of erythema beginning in the groin with macerated exoriations, extending to the extremities and torso Result Diagrams: 05/07/17 06:31 05/07/17 06:31 Assess/Plan/Problems-Billing Assessment: 1. Disseminated Cutaneous Candidiasis Responding well to IV fluconazole; actually looks much better today. continue fluconazole and vancomycin for suspected superimposed cellulitis of the pannus and intertriginous areas 2. Acute hypoxic respiratory failure She is requiring 6L O2 today, when at home she requires 4-5L. She does have some evidence of volume overload on her CXR and on physical exam. I suspect this is related to her recent prednisone course (which she is still completing) . She tells me she often takes extra bumex in addition to her scheduled bid doses. Extra dose of IV bumex was given today. Continue inhalers and PRN nebulizers. 3. Chronic Hypercapneic Respiratory Failure As evidenced by her metabolic acidosis on BMP. Excellent mentation today; no evidence of decompensation. Avoid narcotics, as she has had issues with retention after narcotics on prior hospitalizations 4. Paroxysmal Afib she is in NSR at this time; continue cardizem and xarelto 5. KEVON on cpap 6. dvt ppx therapeutic AC
[2017-05-07] MEDS: Fluconazole 100 MG IVPREMIX(*) 100 MG/50 ML BAG IVPB SCH (21:45)
[2017-05-07] MEDS: Vancomycin(*) 1,250 MG in NS 0.9% 250 ML* 250 ML IVPB SCH (23:46)
[2017-05-08] MEDS: Mometasone/Formoter 200/5 MDI INH SCH (08:21)
[2017-05-08] MEDS: Tiotropium CAP.INH* CAP.INH/18 MCG (USE ORDER SET !) INH SCH (08:21)
[2017-05-08] MEDS: CMCS: Formoterol 20 MCG/2ML NEB (NF) 10 MCG/ML NEB.SOLN INH SCH ×2 (08:24→21:00)
[2017-05-08 08:41] LABS: EGFR African American 92.8 (>60); EGFR Non-African American 72.2 (>60)
[2017-05-08] MEDS ORDERED: Spiriva Inhaler DEVICE* 1 EACH DEVICE INH ONE (09:00)
[2017-05-08] MEDS ORDERED: Influenza VAC *QUAD* 2017-18* 0.5 ML SYRINGE IM ONE (09:00)
[2017-05-08] MEDS: Omeprazole CAP* 20 MG PO SCH (09:22)
[2017-05-08] MEDS: Diltiazem CD CAP* 120 MG PO SCH (09:22)
[2017-05-08] MEDS: predniSONE TAB* 10 MG PO SCH (09:22)
[2017-05-08] MEDS: Ferrous Sulfate TAB* 325 MG PO SCH ×2 (09:22→20:48)
[2017-05-08] MEDS: Bumetanide TAB* 2 MG PO SCH ×2 (09:22→16:50)
[2017-05-08] MEDS: Nystatin TOP POWDER* 15 GM BTL TOPICAL SCH ×3 (10:35→20:49)
[2017-05-08] MEDS: Vancomycin(*) 1,250 MG in NS 0.9% 250 ML* 250 ML IVPB SCH ×3 (10:35→22:58)
--- NOTE | 2017-05-08 11:20 | PN ---
Subjective Date of Service: 05/08/17 Interval History: pt feels well. stated that she is breathing at her baseline Family History: Unchanged from Admission Social History: Unchanged from Admission Past Medical History: Unchanged from Admission Objective Active Medications: Albuterol/Ipratropium (Duoneb (Albuterol 2.5 Mg/Ipratropium 0.5 Mg)) 1 neb INH Q4H PRN PRN Reason: SOB/WHEEZING Bumetanide (Bumex Tab*) 4 mg PO 0800,1600 [facility] Last Admin: 05/08/17 09:22 Dose: 4 mg Diltiazem HCl (Cardizem Cd Cap*) 120 mg PO DAILY [facility] Last Admin: 05/08/17 09:22 Dose: 120 mg Ferrous Sulfate (Ferrous Sulfate Tab*) 325 mg PO BID [facility] Last Admin: 05/08/17 09:22 Dose: 325 mg Formoterol Fumarate (Perforomist Neb.Soln*(Nf)) 1 mcg INH RT.BID [facility] Last Admin: 05/08/17 08:24 Dose: Not Given Gabapentin (Neurontin Cap(*)) 300 mg PO TID PRN PRN Reason: PAIN Fluconazole/Sodium Chloride (Diflucan 100 Mg Ivpremix(*)) 100 mg in 50 mls @ 100 mls/hr IVPB Q24H [facility] Last Admin: 05/07/17 21:45 Dose: 100 mls/hr Vancomycin HCl 1,250 mg/ (Sodium Chloride) 250 mls @ 166.667 mls/hr IVPB Q12H [facility] Last Admin: 05/07/17 23:46 Dose: 166.667 mls/hr Levalbuterol HCl (Xopenex Hfa Inhaler*) 2 puff INH Q4HR PRN PRN Reason: WHEEZING Last Admin: 05/07/17 11:56 Dose: 2 puff Mometasone Furoate/Formoterol Fumar (Dulera 200/5 Mdi*) 2 puff INH QAM [facility] Last Admin: 05/08/17 08:21 Dose: 2 puff Nystatin (Nystatin Top Powder*) 1 applic TOPICAL TID [facility] Last Admin: 05/08/17 10:35 Dose: 1 applic Omeprazole (Prilosec Cap*) 20 mg PO DAILY@0730 [facility] Last Admin: 05/08/17 09:22 Dose: 20 mg Pharmacy Consult (Vancomycin Per Pharmacy*) 1 note FOLLOW UP . PRN PRN Reason: PER PROTOCOL Pharmacy Profile Note (Vancomycin Trough Check) 1 note FOLLOW UP 929 ONE Stop: 05/09/17 09:31 Prednisone (Deltasone Tab*) 10 mg PO DAILY WITH MEAL [facility] Last Admin: 05/08/17 09:22 Dose: 10 mg Rivaroxaban (Xarelto (*)) 20 mg PO DAILY@1700 [facility] Last Admin: 05/07/17 16:49 Dose: 20 mg Tiotropium [place] (Spiriva Cap.Inh*) 1 cap INH DAILY [facility] Last Admin: 05/08/17 08:21 Dose: 1 cap.inh Trazodone HCl (Desyrel Tab*) 100 mg PO BEDTIME PRN PRN Reason: SLEEP Vital Signs 05/07/17 05/07/17 05/07/17 11:37 15:22 19:49 Temperature 98.0 F 97.5 F 98.2 F Pulse Rate 95 88 86 Respiratory 24 20 16 Rate Blood Pressure 111/40 125/75 150/80 (mmHg) O2 Sat by Pulse 86 95 94 Oximetry 05/07/17 05/07/17 05/08/17 20:17 21:05 00:13 Temperature 98.6 F Pulse Rate 85 80 Respiratory 20 18 18 Rate Blood Pressure 131/53 (mmHg) O2 Sat by Pulse 98 96 Oximetry 05/08/17 05/08/17 05/08/17 03:51 07:22 08:25 Temperature 99.1 F 98.3 F Pulse Rate 85 82 68 Respiratory 18 14 16 Rate Blood Pressure 143/54 131/88 (mmHg) O2 Sat by Pulse 98 96 97 Oximetry Oxygen Devices in Use Now: Nasal Cannula - at 5L Appearance: 71 yo morbitly obese F in NAD, AAOx3 Eyes: No Scleral Icterus, PERRLA Ears/Nose/Mouth/Throat: NL Teeth, Lips, Gums, Mucous Membranes Moist Neck: NL Appearance and Movements; NL JVP, Trachea Midline Respiratory: Symmetrical Chest Expansion and Respiratory Effort, - - rales at b/ l bases Cardiovascular: - - irregular, no murmur Abdominal: NL Sounds; No Tenderness; No Distention, No Hepatosplenomegaly Extremities: No Clubbing, Cyanosis, - - no leg edema Skin: - - severe oracio intertrigo in b/l inguinal area, underneath pannus, in folds on back with satellite lesions on upper back, knees Neurological: Alert and Oriented x 3, NL Muscle Strength and Tone Result Diagrams: 05/07/17 06:31 05/08/17 07:46 Microbiology and Other Data: Microbiology 05/06/17 20:18 Aerobic Blood Culture - Preliminary Blood Venous No Growth Day 1 Anaerobic Blood Culture - Preliminary No Growth Day 1 05/06/17 20:18 Aerobic Blood Culture - Preliminary Blood Venous No Growth Day 1 Anaerobic Blood Culture - Preliminary No Growth Day 1 Assess/Plan/Problems-Billing Assessment: 71 yo f with h/o recent COPD exacerbation now with disseminated cutaneus candidiasis. Pt has h/o COPD on 02 at 4-5 L at home - Patient Problems (1) Disseminated candidiasis Comment: cutaneus. Responding well to IV fluconazole. continue fluconazole and vancomycin for suspected superimposed cellulitis of the pannus and intertriginous areas (2) Acute respiratory failure with hypoxia Comment: She is requiring 5L O2 today, when at home she requires 4-5L. She does have some evidence of volume overload on her CXR and on physical exam. I suspect this is related to her recent prednisone course (which she is still completing). She tells me she often takes extra bumex in addition to her scheduled bid doses. Extra dose of IV bumex was given on 05/07/17, will repeat dose. Continue inhalers and PRN nebulizers. (3) Chronic hypercapnic respiratory failure Comment: acute on chronic crisis has resolved on bipap overnight 04/22->04/23 no evidence of decompensation. Avoid narcotics, as she has had issues with retention after narcotics on prior hospitalizations (4) Afib Comment: Rate controlled. Continue xarelto and diltazem. (5) KEVON (obstructive sleep apnea) Comment: continue cpap. (6) DVT prophylaxis Comment: Xarelto Status and Disposition: inpatient
[2017-05-08] MEDS ORDERED: Bumetanide IV* 0.25 MG/ML 4 ML VIAL SLOW PUSH ONE (11:23)
[2017-05-08] MEDS: Rivaroxaban TAB(*) 20 MG TAB PO SCH (16:50)
[2017-05-08] MEDS: Fluconazole 100 MG IVPREMIX(*) 100 MG/50 ML BAG IVPB SCH (21:44)
[2017-05-09 06:12] LABS: BUN/Creatinine Ratio 12.3 (8-20); Calcium 8.2 mg/dL (8.6-10.3); EGFR African American 66.1 (>60); EGFR Non-African American 51.4 (>60)
[2017-05-09] MEDS: Omeprazole CAP* 20 MG PO SCH (07:39)
[2017-05-09] MEDS: CMCS: Formoterol 20 MCG/2ML NEB (NF) 10 MCG/ML NEB.SOLN INH SCH ×2 (08:08→20:19)
[2017-05-09] MEDS: Mometasone/Formoter 200/5 MDI INH SCH (08:49)
[2017-05-09] MEDS: Ferrous Sulfate TAB* 325 MG PO SCH ×2 (08:51→20:13)
[2017-05-09] MEDS: Bumetanide TAB* 2 MG PO SCH ×2 (08:52→16:20)
[2017-05-09] MEDS: Diltiazem CD CAP* 120 MG PO SCH (08:52)
[2017-05-09] MEDS: Nystatin TOP POWDER* 15 GM BTL TOPICAL SCH ×3 (08:52→20:13)
[2017-05-09] MEDS ORDERED: predniSONE TAB* 5 MG PO SCH (09:00)
[2017-05-09] MEDS: Tiotropium CAP.INH* CAP.INH/18 MCG (USE ORDER SET !) INH SCH (09:03)
[2017-05-09] MEDS ORDERED: Vancomycin Trough Check NOTE FOLLOW UP ONE (09:30)
[2017-05-09] MEDS: Vancomycin(*) 1,250 MG in NS 0.9% 250 ML* 250 ML IVPB SCH (10:32)
[2017-05-09] MEDS ORDERED: Potassium Chlor TAB* 20 MEQ TAB.ER PO ONE (10:42)
--- NOTE | 2017-05-09 10:57 | PN ---
Subjective Date of Service: 05/09/17 Interval History: Pt c/o skin itching, breathing at baseline Family History: Unchanged from Admission Social History: Unchanged from Admission Past Medical History: Unchanged from Admission Objective Active Medications: Albuterol/Ipratropium (Duoneb (Albuterol 2.5 Mg/Ipratropium 0.5 Mg)) 1 neb INH QID [facility] Bumetanide (Bumex Tab*) 4 mg PO 0800,1600 [facility] Last Admin: 05/09/17 08:52 Dose: 4 mg Diltiazem HCl (Cardizem Cd Cap*) 120 mg PO DAILY [facility] Last Admin: 05/09/17 08:52 Dose: 120 mg Ferrous Sulfate (Ferrous Sulfate Tab*) 325 mg PO BID [facility] Last Admin: 05/09/17 08:51 Dose: 325 mg Formoterol Fumarate (Perforomist Neb.Soln*(Nf)) 1 mcg INH RT.BID [facility] Last Admin: 05/09/17 08:08 Dose: Not Given Gabapentin (Neurontin Cap(*)) 300 mg PO TID PRN PRN Reason: PAIN Fluconazole/Sodium Chloride (Diflucan 100 Mg Ivpremix(*)) 100 mg in 50 mls @ 100 mls/hr IVPB Q24H [facility] Last Admin: 05/08/17 21:44 Dose: 100 mls/hr Vancomycin HCl 1,250 mg/ (Sodium Chloride) 250 mls @ 166.667 mls/hr IVPB Q12H [facility] Last Admin: 05/09/17 10:32 Dose: Not Given Mometasone Furoate/Formoterol Fumar (Dulera 200/5 Mdi*) 2 puff INH QAM [facility] Last Admin: 05/09/17 08:49 Dose: 2 puff Nystatin (Nystatin Top Powder*) 1 applic TOPICAL TID [facility] Last Admin: 05/09/17 08:52 Dose: 1 applic Omeprazole (Prilosec Cap*) 20 mg PO DAILY@0730 [facility] Last Admin: 05/09/17 07:39 Dose: 20 mg Pharmacy Consult (Vancomycin Per Pharmacy*) 1 note FOLLOW UP . PRN PRN Reason: PER PROTOCOL Rivaroxaban (Xarelto (*)) 20 mg PO DAILY@1700 [facility] Last Admin: 05/08/17 16:50 Dose: 20 mg Tiotropium [place] (Spiriva Cap.Inh*) 1 cap INH DAILY [facility] Last Admin: 05/09/17 09:03 Dose: 1 cap.inh Trazodone HCl (Desyrel Tab*) 100 mg PO BEDTIME PRN PRN Reason: SLEEP Vital Signs 05/08/17 05/08/17 05/08/17 11:23 11:25 15:23 Temperature 99.1 F 97.8 F Pulse Rate 82 93 86 Respiratory 18 22 Rate Blood Pressure 120/46 107/62 (mmHg) O2 Sat by Pulse 97 94 Oximetry 05/08/17 05/08/17 05/08/17 19:46 20:00 23:49 Temperature 98.0 F 98.0 F Pulse Rate 81 81 Respiratory 20 17 18 Rate Blood Pressure 141/46 138/59 (mmHg) O2 Sat by Pulse 97 97 Oximetry 05/09/17 05/09/17 05/09/17 03:32 07:50 08:00 Temperature 98.4 F 98.1 F Pulse Rate 72 74 Respiratory 20 18 18 Rate Blood Pressure 126/52 113/54 (mmHg) O2 Sat by Pulse 96 97 Oximetry Oxygen Devices in Use Now: Nasal Cannula - at 5L Appearance: 71 yo f in nAD, AAOx3 Eyes: No Scleral Icterus, PERRLA Ears/Nose/Mouth/Throat: NL Teeth, Lips, Gums, Mucous Membranes Moist Neck: NL Appearance and Movements; NL JVP, Trachea Midline Respiratory: Symmetrical Chest Expansion and Respiratory Effort, - - diffuse mid lung wheezes b/l Cardiovascular: RRR Abdominal: NL Sounds; No Tenderness; No Distention Lymphatic: No Cervical Adenopathy Extremities: No Clubbing, Cyanosis, - - trace ankle edema b/l Skin: No Nodules or Sclerosis, - - diffuse oracio intertrigo on pannus,abd folds, lower back and satellite lesions on knees Neurological: Alert and Oriented x 3, NL Muscle Strength and Tone Result Diagrams: 05/07/17 06:31 05/09/17 04:48 Microbiology and Other Data: Microbiology 05/06/17 20:18 Aerobic Blood Culture - Preliminary Blood Venous No Growth Day 1 Anaerobic Blood Culture - Preliminary No Growth Day 1 05/06/17 20:18 Aerobic Blood Culture - Preliminary Blood Venous No Growth Day 1 Anaerobic Blood Culture - Preliminary No Growth Day 1 Assess/Plan/Problems-Billing Assessment: 71 yo f with h/o recent COPD exacerbation now with disseminated cutaneus candidiasis. Pt has h/o COPD on 02 at 4-5 L at home - Patient Problems (1) Disseminated candidiasis Comment: cutaneus. Responding well to IV fluconazole. continue fluconazole and vancomycin for suspected superimposed cellulitis of the pannus and intertriginous areas Consulted ID for further recommendations (2) Acute respiratory failure with hypoxia Comment: She is requiring 5L O2 today, when at home she requires 4-5L. She often takes extra bumex in addition to her scheduled bid doses. Extra dose of IV bumex was given on 05/07/17,05/08/17 , today with slight creat increase, no addtional diuretic. Continue inhalers and PRN nebulizers. (3) Chronic hypercapnic respiratory failure Comment: acute on chronic crisis has resolved on bipap overnight 04/22->04/23 during last hospital stay no evidence of decompensation today. Pt refuses BIPAP/CPAP at home. Avoid narcotics, as she has had issues with retention after narcotics on prior hospitalizations (4) Afib Comment: Rate controlled. Continue xarelto and diltazem. (5) KEVON (obstructive sleep apnea) Comment: not tolerating CPAP (6) DVT prophylaxis Comment: Xarelto Status and Disposition: inpatient
[2017-05-09] MEDS ORDERED: Bumetanide IV* 0.25 MG/ML 4 ML VIAL SLOW PUSH ONE (11:30)
[2017-05-09] MEDS: diPHENhydraMINE PO* 25 MG PO PRN (11:36)
[2017-05-09] MEDS: Albuterol/Ipratropium NEB.SOL* Albuterol 2.5 MG/Ipratropium 0.5 MG 3 ML INH SCH ×3 (13:35→20:19)
[2017-05-09] MEDS: Fluconazole 400 MG IVPREMIX(*) 400 MG/200 ML BAG IVPB SCH (14:16)
--- NOTE | 2017-05-09 16:26 | CONS ---
CONSULTATION REPORT: DATE OF CONSULT: 05/09/17 REQUESTING PHYSICIAN: Dr. Tavarez. CONSULTING SERVICE: Infectious Disease. REASON FOR CONSULTATION: Fungal dermatitis of her abdomen and diffuse rash on her trunk and arms. IMPRESSION: 1. Recent treatment for left hand and wrist cellulitis with Keflex that is resolved now with intertrigo, severe of her abdomen with some satellite lesions up around her legs and abdominal wall, maybe her back. She also has what to me looks like a different rash on her upper back and arms, which I suspect is more of a drug reaction. 2. Obesity. 3. Diabetes. 4. Chronic corticosteroid use. 5. Severe chronic obstructive pulmonary disease. RECOMMENDATIONS: 1. Change fluconazole with 400 mg IV daily, follow her skin situation. 2. Given that the abdominal rash is more deeply red and painful and the rash of on her upper back is less red and more itchy, I think that does represent drug reaction and so we could use a topical corticosteroid if the itching gets to be too severe, for her upper back. HISTORY OF PRESENT ILLNESS: This is a 71-year-old woman with diabetes and chronic corticosteroid use, admitted with severe intertrigo. She had been in the hospital a couple of weeks ago here for a left forearm cellulitis, which was resolved. She went home on Keflex, was doing well, and then 3 to 4 days ago started get redness, pain in the abdominal fold, which she has from time to time, but never this severe, has progressed, gotten down to her legs and down in her upper back. She noticed an itchy red rash on her abdomen that is more painful. She came to the hospital yesterday with a white count of 13, CO2 is 41. She was afebrile. She was started on 100 of fluconazole and vancomycin. She has had some improvement in the abdominal rash, though it is still quite painful. She uses corticosteroids chronically for COPD. PAST MEDICAL HISTORY: 1. Severe COPD with chronic hypoxic and hypercapnic respiratory failure . 2. Type 2 diabetes. 3. Heart failure with preserved ejection fraction. 4. Paroxysmal atrial fibrillation. 5. Obstructive sleep apnea. 6. Depression. 7. Morbid obesity. 8. Status post left total knee arthroplasty. MEDICATIONS: 1. Fluconazole 100 mg IV daily. 2. Diltiazem. 3. Ferrous sulfate. 4. Gabapentin. 5. Formoterol inhaler. 6. Nystatin topical powder. 7. Omeprazole. 8. Rivaroxaban. 9. Spiriva. 10. Vancomycin 1 g IV 12 hours. 11. Benadryl. 12. Prednisone 10 mg a day. ALLERGIES: IBUPROFEN and ROFECOXIB. FAMILY HISTORY: No current infections. SOCIAL HISTORY: She lives in [place] [facility]. No travel. REVIEW OF SYSTEMS: All negative to 14-point review of systems except as noted above. PHYSICAL EXAM: Vital Signs: Temperature is 36.7, heart rate 70, respiratory rate 18, blood pressure 113/54, O2 sat 97% on 5 L. In general, she is awake, not in distress. Neurologic: She is oriented x3. Follows all commands. HEENT : There is no conjunctival hemorrhage. Oropharynx without lesions. Neck is supple. Lymph Nodes: There is no inguinal, axillary, or epitrochlear lymphadenopathy. Heart: Regular rate and rhythm without murmurs, rubs, or gallops. Lungs: Clear to auscultation bilaterally. Abdomen: Soft, nontender with bowel sounds present. Skin: There is diffuse, intense erythema of the abdominal fold, extending down to her groin and a little bit around to her back and then there was diffuse mild blanching erythematous patches and macules on her upper back. Musculoskeletal: There is no spine tenderness to palpation. DIAGNOSTIC STUDIES/LAB DATA: White blood cell count 8, hemoglobin 11, and platelets 265. Creatinine 1. Please see impressions and recommendation as outlined above, which I have discussed with Dr. Tavarez. Thank you for asking me to see Ms. Sabillon in consultation. [id number]/[facility] #: [id number] MTDCharles
[2017-05-09] MEDS: Rivaroxaban TAB(*) 20 MG TAB PO SCH (17:10)
[2017-05-09] MEDS: Vancomycin(*) 1,000 MG in NS 0.9% 250 ML* 250 ML IVPB SCH (17:53)
[2017-05-09] MEDS ORDERED: Triamcinolone 0.025% OINT * 15 GM TUBE TOPICAL PRN (18:47)
[2017-05-09] MEDS: Docusate CAP* 100 MG PO PRN (20:13)
[2017-05-09] MEDS: Polyethylene Glycol 3350* 17 GM PACKET PO PRN (20:13)
[2017-05-10] MEDS: Vancomycin(*) 1,000 MG in NS 0.9% 250 ML* 250 ML IVPB SCH (05:36)
[2017-05-10 05:58] LABS: Hematocrit 35 % (35-47); Hemoglobin 11.1 g/dl (12.0-16.0); Mean Corpuscular HGB Conc 32 g/dl (31-36); Mean Corpuscular Hemoglobin 27 pg (27-31); Mean Corpuscular Volume 84 fL (80-97); Mean Platelet Volume 6 um3 (7.4-10.4); Red Blood Count 4.18 10^6/ul (4.0-5.4); Red Cell Distribution Width 17 % (10.5-15); White Blood Count 8.9 10^3/ul (3.5-10.8)
[2017-05-10 06:02] LABS: BUN/Creatinine Ratio 15.3 (8-20); Calcium 8.6 mg/dL (8.6-10.3); EGFR African American 72.4 (>60); EGFR Non-African American 56.3 (>60); Potassium 3.7 mmol/L (3.5-5.0)
[2017-05-10] MEDS: Bumetanide TAB* 2 MG PO SCH ×2 (09:07→16:12)
[2017-05-10] MEDS: Diltiazem CD CAP* 120 MG PO SCH (09:08)
[2017-05-10] MEDS: Tiotropium CAP.INH* CAP.INH/18 MCG (USE ORDER SET !) INH SCH (09:08)
[2017-05-10] MEDS: predniSONE TAB* 10 MG PO SCH (09:09)
[2017-05-10] MEDS: Omeprazole CAP* 20 MG PO SCH (09:09)
[2017-05-10] MEDS: Ferrous Sulfate TAB* 325 MG PO SCH ×2 (09:10→21:07)
[2017-05-10] MEDS: Mometasone/Formoter 200/5 MDI INH SCH (09:12)
[2017-05-10] MEDS: CMCS: Formoterol 20 MCG/2ML NEB (NF) 10 MCG/ML NEB.SOLN INH SCH ×3 (09:13→19:36)
[2017-05-10] MEDS: Albuterol/Ipratropium NEB.SOL* Albuterol 2.5 MG/Ipratropium 0.5 MG 3 ML INH SCH (09:23)
[2017-05-10] MEDS: Nystatin TOP POWDER* 15 GM BTL TOPICAL SCH ×3 (10:43→21:07)
--- NOTE | 2017-05-10 11:01 | PN ---
Subjective Date of Service: 05/10/17 Interval History: Pt still c/o rash, but itching is better with Benadryl tx. Family History: Unchanged from Admission Social History: Unchanged from Admission Past Medical History: Unchanged from Admission Objective Active Medications: Bumetanide (Bumex Tab*) 4 mg PO 0800,1600 [facility] Last Admin: 05/10/17 09:07 Dose: 4 mg Diltiazem HCl (Cardizem Cd Cap*) 120 mg PO DAILY [facility] Last Admin: 05/10/17 09:08 Dose: 120 mg Diphenhydramine HCl (Benadryl Po*) 25 mg PO Q6H PRN PRN Reason: pruritus Last Admin: 05/09/17 11:36 Dose: 25 mg Docusate Sodium (Colace Cap*) 100 mg PO DAILY PRN PRN Reason: CONSTIPATION Last Admin: 05/09/17 20:13 Dose: 100 mg Ferrous Sulfate (Ferrous Sulfate Tab*) 325 mg PO BID [facility] Last Admin: 05/10/17 09:10 Dose: 325 mg Formoterol Fumarate (Perforomist Neb.Soln*(Nf)) 1 mcg INH RT.BID [facility] Last Admin: 05/10/17 09:41 Dose: 1 mcg Gabapentin (Neurontin Cap(*)) 300 mg PO TID PRN PRN Reason: PAIN Fluconazole/Sodium Chloride (Diflucan 400 Mg Ivpremix(*)) 400 mg in 200 mls @ 100 mls/hr IVPB Q24H [facility] Last Admin: 05/09/17 14:16 Dose: 100 mls/hr Mometasone Furoate/Formoterol Fumar (Dulera 200/5 Mdi*) 2 puff INH QAM [facility] Last Admin: 05/10/17 09:12 Dose: 2 puff Nystatin (Nystatin Top Powder*) 1 applic TOPICAL TID [facility] Last Admin: 05/10/17 10:43 Dose: 1 applic Omeprazole (Prilosec Cap*) 20 mg PO DAILY@0730 [facility] Last Admin: 05/10/17 09:09 Dose: 20 mg Pharmacy Profile Note (Vancomycin Trough Check) 1 note FOLLOW UP 0600 ONE Stop: 05/11/17 06:01 Polyethylene Glycol/Electrolytes (Miralax*) 17 gm PO DAILY PRN PRN Reason: CONSTIPATION Last Admin: 05/09/17 20:13 Dose: 17 gm Prednisone (Deltasone Tab*) 10 mg PO DAILY [facility] Last Admin: 05/10/17 09:09 Dose: 10 mg Rivaroxaban (Xarelto (*)) 20 mg PO DAILY@1700 [facility] Last Admin: 05/09/17 17:10 Dose: 20 mg Senna (Senokot Tab*) 1 tab PO DAILY PRN PRN Reason: CONSTIPATION Tiotropium [place] (Spiriva Cap.Inh*) 1 cap INH DAILY [facility] Last Admin: 05/10/17 09:08 Dose: 1 cap.inh Trazodone HCl (Desyrel Tab*) 100 mg PO BEDTIME PRN PRN Reason: SLEEP Triamcinolone Acetonide (Triamcinolone 0.025% Oint *) 1 applic TOPICAL BID PRN PRN Reason: PRURITIS Vital Signs 05/09/17 05/09/17 05/09/17 11:36 12:13 13:36 Temperature 98 F Pulse Rate 85 Respiratory 18 18 15 Rate Blood Pressure 131/53 (mmHg) O2 Sat by Pulse 96 Oximetry 05/09/17 05/09/17 05/09/17 13:37 15:37 16:58 Temperature 98.4 F Pulse Rate 80 86 80 Respiratory 16 18 18 Rate Blood Pressure 147/50 (mmHg) O2 Sat by Pulse 96 94 95 Oximetry 05/09/17 05/09/17 05/09/17 19:36 20:00 20:23 Temperature 97.9 F Pulse Rate 91 84 Respiratory 18 20 18 Rate Blood Pressure 133/54 (mmHg) O2 Sat by Pulse 96 98 Oximetry 05/10/17 05/10/17 05/10/17 00:01 03:56 07:28 Temperature 98.2 F 98.1 F 98.1 F Pulse Rate 80 85 63 Respiratory 18 20 18 Rate Blood Pressure 131/56 134/55 103/63 (mmHg) O2 Sat by Pulse 97 96 97 Oximetry 05/10/17 05/10/17 07:29 09:21 Temperature Pulse Rate 63 Respiratory 20 18 Rate Blood Pressure (mmHg) O2 Sat by Pulse 97 Oximetry Oxygen Devices in Use Now: Nasal Cannula - at 5L Appearance: 71 yo F in NAD, AAOx3 Eyes: No Scleral Icterus, PERRLA Ears/Nose/Mouth/Throat: NL Teeth, Lips, Gums, Mucous Membranes Moist Neck: NL Appearance and Movements; NL JVP, Trachea Midline Respiratory: Symmetrical Chest Expansion and Respiratory Effort, - - distant breath sounds b/l with scant bibasiliar wheezes Cardiovascular: NL Sounds; No Murmurs; No JVD, - - irregular Abdominal: NL Sounds; No Tenderness; No Distention Lymphatic: No Cervical Adenopathy Extremities: No Edema, No Clubbing, Cyanosis Skin: No Nodules or Sclerosis, - - oracio itertrigo -severe , in groins and skin folds, scattered rash on back, knees ? satellite lesions feom oracio vs drug reaction Neurological: Alert and Oriented x 3, NL Muscle Strength and Tone Result Diagrams: 05/10/17 05:27 05/10/17 05:27 Microbiology and Other Data: Microbiology 05/06/17 20:18 Aerobic Blood Culture - Preliminary Blood Venous No Growth Day 1 Anaerobic Blood Culture - Preliminary No Growth Day 1 05/06/17 20:18 Aerobic Blood Culture - Preliminary Blood Venous No Growth Day 1 Anaerobic Blood Culture - Preliminary No Growth Day 1 Assess/Plan/Problems-Billing Assessment: 71 yo f with h/o recent COPD exacerbation now with disseminated cutaneus candidiasis. Pt has h/o COPD on 02 at 4-5 L at home - Patient Problems (1) Disseminated candidiasis Comment: cutaneus. Responding well to IV fluconazole. continue fluconazole. Stopped vancomycin-possible that the rash on back and knees is drug related appreciate ID consult (2) Acute respiratory failure with hypoxia Comment: She is requiring 5L O2 today, when at home she requires 4-5L. She often takes extra bumex in addition to her scheduled bid doses. Extra dose of IV bumex was given on 05/07/17,05/08/17 . Continue inhalers and PRN nebulizers. (3) Chronic hypercapnic respiratory failure Comment: acute on chronic crisis has resolved on bipap overnight 04/22->04/23 during last hospital stay no evidence of decompensation today. Pt refuses BIPAP/CPAP at home. Avoid narcotics, as she has had issues with retention after narcotics on prior hospitalizations (4) Afib Comment: Rate controlled. Continue xarelto and diltazem. (5) KEVON (obstructive sleep apnea) Comment: not tolerating CPAP (6) DVT prophylaxis Comment: Xarelto Status and Disposition: inpatient
[2017-05-10] MEDS: Fluconazole 400 MG IVPREMIX(*) 400 MG/200 ML BAG IVPB SCH (12:27)
[2017-05-10] MEDS: Rivaroxaban TAB(*) 20 MG TAB PO SCH (16:12)
--- NOTE | 2017-05-10 17:03 | PN ---
Progress Note - Progress Note Date of Service: 05/10/17 SOAP: Subjective: CC: rash HPI: 71 year old diabetic woman on prednisone and recent antibiotics now with severe intertrigo and itchy on back. Abd skin pain improved. No rash or diarrhea. Objective: [] Vital Signs Temp 36.7 C 05/10/17 15:25 Pulse 91 05/10/17 15:25 Resp 18 05/10/17 15:25 BP 119/64 05/10/17 15:25 Pulse Ox 95 05/10/17 15:25 Intake & Output 05/09/17 05/10/17 05/10/17 18:59 06:59 18:59 Intake Total 2390 725 320 Output Total 7864 941 3066 Balance 520 -225 -1005 Weight 219 lb 11.2 oz Intake: IV Fluids 225 NS flush 25 fluconozole 200 IVPB 265 ABX - VANCOMYCIN 265 Oral 2165 460 320 Output: Urine 5247 783 8710 Gen:awake Neuro:Ox3 HEENT:PERRL Heart:RRR no murmur Lungs:CTA BL Abd:+BS NTND soft Skin: diffuse erythema in panus fold into groin BL Assessment: 1. severe Candidiasis of skin 2. drug rash on back Plan: change fluconazole to PO for 10 more days Discuss[address] with Dr Tavarez
[2017-05-10] MEDS: Polyethylene Glycol 3350* 17 GM PACKET PO PRN (21:06)
[2017-05-10] MEDS: diPHENhydraMINE PO* 25 MG PO PRN (21:07)
[2017-05-10] MEDS: Docusate CAP* 100 MG PO PRN (21:07)
[2017-05-10] MEDS: Senna TAB PO PRN (21:07)
[2017-05-11] MEDS ORDERED: Vancomycin Trough Check NOTE FOLLOW UP ONE (06:00)
[2017-05-11] MEDS: Bumetanide TAB* 2 MG PO SCH ×2 (08:01→16:08)
[2017-05-11] MEDS: Omeprazole CAP* 20 MG PO SCH (08:02)
[2017-05-11] MEDS ORDERED: Fluconazole 100 MG TAB* TAB PO ONE (09:00)
[2017-05-11] MEDS: Tiotropium CAP.INH* CAP.INH/18 MCG (USE ORDER SET !) INH SCH (10:31)
[2017-05-11] MEDS: Mometasone/Formoter 200/5 MDI INH SCH (10:33)
[2017-05-11] MEDS: Ferrous Sulfate TAB* 325 MG PO SCH ×2 (10:34→22:07)
[2017-05-11] MEDS: predniSONE TAB* 10 MG PO SCH (10:35)
[2017-05-11] MEDS: Diltiazem CD CAP* 120 MG PO SCH (10:35)
[2017-05-11] MEDS: Fluconazole 100 MG TAB* TAB PO SCH (10:36)
[2017-05-11] MEDS: Nystatin TOP POWDER* 15 GM BTL TOPICAL SCH ×3 (10:37→22:07)
[2017-05-11] MEDS: CMCS: Formoterol 20 MCG/2ML NEB (NF) 10 MCG/ML NEB.SOLN INH SCH ×3 (10:38→20:29)
--- NOTE | 2017-05-11 10:40 | PN ---
Progress Note - Progress Note Date of Service: 05/11/17 SOAP: Subjective: CC: rash HPI: 71 year old diabetic woman on prednisone and recent antibiotics now with severe intertrigo and itchy on back. Abd skin pain improved. No rash or diarrhea. Objective: [] Vital Signs Temp 36.7 C 05/11/17 03:20 Pulse 81 05/11/17 03:20 Resp 18 05/11/17 03:20 BP 123/60 05/11/17 03:20 Pulse Ox 96 05/11/17 03:20 Intake & Output 05/10/17 05/11/17 05/11/17 18:59 06:59 18:59 Intake Total 320 700 480 Output Total 1325 1775 100 Balance -1005 -1075 380 Weight 218 lb 14.4 oz Intake: Oral 320 700 480 Output: Urine 1325 1775 100 Other: # Bowel Movements 0 Gen:awake Neuro:Ox3 HEENT:PERRL Heart:RRR no murmur Lungs:CTA BL Abd:+BS NTND soft Skin: diffuse erythema in panus fold into groin BL Assessment: 1. severe Candidiasis of skin 2. drug rash on back Plan: continue fluconazole 400 mg po daily for 10 more days
[2017-05-11] MEDS ORDERED: Albuterol/Ipratropium NEB.SOL* Albuterol 2.5 MG/Ipratropium 0.5 MG 3 ML INH PRN (11:29)
[2017-05-11] MEDS ORDERED: Albuterol HFA INHALER* 8 gm MDI INH PRN (11:29)
--- NOTE | 2017-05-11 13:48 | PN ---
Subjective Date of Service: 05/11/17 Interval History: pt feels much better. sin is less itchy. she ambulated with a walker well. she is ready to go home, but needs to arrange for her aides to come in and family to pick her up, likely tomorrow Family History: Unchanged from Admission Social History: Unchanged from Admission Past Medical History: Unchanged from Admission Objective Active Medications: Albuterol (Ventolin Hfa Inhaler*) 2 puff INH Q4H PRN PRN Reason: SOB/WHEEZING Albuterol/Ipratropium (Duoneb (Albuterol 2.5 Mg/Ipratropium 0.5 Mg)) 1 neb INH Q4H PRN PRN Reason: SOB/WHEEZING Bumetanide (Bumex Tab*) 4 mg PO 0800,1600 [facility] Last Admin: 05/11/17 08:01 Dose: 4 mg Diltiazem HCl (Cardizem Cd Cap*) 120 mg PO DAILY [facility] Last Admin: 05/11/17 10:35 Dose: 120 mg Diphenhydramine HCl (Benadryl Po*) 25 mg PO Q6H PRN PRN Reason: pruritus Last Admin: 05/10/17 21:07 Dose: 25 mg Docusate Sodium (Colace Cap*) 100 mg PO DAILY PRN PRN Reason: CONSTIPATION Last Admin: 05/10/17 21:07 Dose: 100 mg Ferrous Sulfate (Ferrous Sulfate Tab*) 325 mg PO BID [facility] Last Admin: 05/11/17 10:34 Dose: 325 mg Fluconazole (Diflucan 100 Mg Tab*) 400 mg PO DAILY [facility] Last Admin: 05/11/17 10:36 Dose: 400 mg Formoterol Fumarate (Perforomist Neb.Soln*(Nf)) 20 mcg INH RT.BID [facility] Gabapentin (Neurontin Cap(*)) 300 mg PO TID PRN PRN Reason: PAIN Last Admin: 05/10/17 21:07 Dose: 300 mg Mometasone Furoate/Formoterol Fumar (Dulera 200/5 Mdi*) 2 puff INH QAM [facility] Last Admin: 05/11/17 10:33 Dose: 2 puff Nystatin (Nystatin Top Powder*) 1 applic TOPICAL TID [facility] Omeprazole (Prilosec Cap*) 20 mg PO DAILY@0730 [facility] Last Admin: 05/11/17 08:02 Dose: 20 mg Polyethylene Glycol/Electrolytes (Miralax*) 17 gm PO DAILY PRN PRN Reason: CONSTIPATION Last Admin: 05/10/17 21:06 Dose: 17 gm Prednisone (Deltasone Tab*) 10 mg PO DAILY [facility] Last Admin: 05/11/17 10:35 Dose: 10 mg Rivaroxaban (Xarelto (*)) 20 mg PO DAILY@1700 [facility] Last Admin: 05/10/17 16:12 Dose: 20 mg Senna (Senokot Tab*) 1 tab PO DAILY PRN PRN Reason: CONSTIPATION Last Admin: 05/10/17 21:07 Dose: 1 tab Tiotropium [place] (Spiriva Cap.Inh*) 1 cap INH DAILY [facility] Last Admin: 05/11/17 10:31 Dose: 1 cap.inh Trazodone HCl (Desyrel Tab*) 100 mg PO BEDTIME PRN PRN Reason: SLEEP Triamcinolone Acetonide (Triamcinolone 0.025% Oint *) 1 applic TOPICAL BID PRN PRN Reason: PRURITIS Vital Signs 05/10/17 05/10/17 05/10/17 15:25 19:35 21:02 Temperature 98.1 F 99.0 F Pulse Rate 91 94 87 Respiratory 18 16 18 Rate Blood Pressure 119/64 131/63 (mmHg) O2 Sat by Pulse 95 97 96 Oximetry 05/10/17 05/10/17 05/11/17 21:07 23:07 00:17 Temperature 98.3 F Pulse Rate 85 Respiratory 16 15 16 Rate Blood Pressure 126/53 (mmHg) O2 Sat by Pulse 96 Oximetry 05/11/17 05/11/17 05/11/17 03:20 07:24 08:00 Temperature 98.1 F 97.6 F Pulse Rate 81 76 Respiratory 18 15 18 Rate Blood Pressure 123/60 118/51 (mmHg) O2 Sat by Pulse 96 92 Oximetry 05/11/17 05/11/17 11:39 11:54 Temperature 98.3 F Pulse Rate 79 89 Respiratory 18 15 Rate Blood Pressure 120/55 (mmHg) O2 Sat by Pulse 98 97 Oximetry Oxygen Devices in Use Now: Nasal Cannula - at 4L Appearance: 71 yo F in nAD, AAOx3 Eyes: No Scleral Icterus, PERRLA Ears/Nose/Mouth/Throat: NL Teeth, Lips, Gums Neck: NL Appearance and Movements; NL JVP Respiratory: Symmetrical Chest Expansion and Respiratory Effort, - - scant b/l mid lung wheezes and distant breath sounds b/l Cardiovascular: - - irregular Abdominal: NL Sounds; No Tenderness; No Distention, No Hepatosplenomegaly Lymphatic: No Cervical Adenopathy Extremities: No Clubbing, Cyanosis, - - +1 pitting pedal edema b/l Skin: No Nodules or Sclerosis, - - oracio intertigo and rash on back and knees improving Neurological: Alert and Oriented x 3, NL Muscle Strength and Tone Result Diagrams: 05/10/17 05:27 05/10/17 05:27 Microbiology and Other Data: Microbiology 05/06/17 20:18 Aerobic Blood Culture - Preliminary Blood Venous No Growth Day 1 Anaerobic Blood Culture - Preliminary No Growth Day 1 05/06/17 20:18 Aerobic Blood Culture - Preliminary Blood Venous No Growth Day 1 Anaerobic Blood Culture - Preliminary No Growth Day 1 Assess/Plan/Problems-Billing Assessment: 71 yo f with h/o recent COPD exacerbation now with disseminated cutaneus candidiasis. Pt has h/o COPD on 02 at 4-5 L at home - Patient Problems (1) Disseminated candidiasis Comment: cutaneus. Responding well to fluconazole. continue fluconazole. Stopped vancomycin-possible that the rash on back and knees is drug related appreciate ID consult (2) Acute respiratory failure with hypoxia Comment: She is requiring 4L O2 today, when at home she requires 4-5L. She often takes extra bumex in addition to her scheduled bid doses. Extra dose of IV bumex was given on 05/07/17,05/08/17 . Continue inhalers and PRN nebulizers. (3) Chronic hypercapnic respiratory failure Comment: no evidence of decompensation today. Pt refuses BIPAP/CPAP at home. Avoid narcotics, as she has had issues with retention after narcotics on prior hospitalizations (4) Afib Comment: Rate controlled. Continue xarelto and diltazem. (5) KEVON (obstructive sleep apnea) Comment: not tolerating CPAP (6) DVT prophylaxis Comment: Xarelto Status and Disposition: inpatient, plan to d/c home in AM
[2017-05-11] MEDS: Rivaroxaban TAB(*) 20 MG TAB PO SCH (17:35)
[2017-05-11] MEDS: Docusate CAP* 100 MG PO PRN (22:07)
[2017-05-11] MEDS: diPHENhydraMINE PO* 25 MG PO PRN (22:07)
[2017-05-11] MEDS: Senna TAB PO PRN (22:07)
[2017-05-12] MEDS: Mometasone/Formoter 200/5 MDI INH SCH (08:33)
[2017-05-12] MEDS: Tiotropium CAP.INH* CAP.INH/18 MCG (USE ORDER SET !) INH SCH (08:33)
[2017-05-12] MEDS: CMCS: Formoterol 20 MCG/2ML NEB (NF) 10 MCG/ML NEB.SOLN INH SCH (08:34)
[2017-05-12] MEDS: Omeprazole CAP* 20 MG PO SCH (08:42)
[2017-05-12] MEDS: Ferrous Sulfate TAB* 325 MG PO SCH (08:42)
[2017-05-12] MEDS: Diltiazem CD CAP* 120 MG PO SCH (08:42)
[2017-05-12] MEDS: Bumetanide TAB* 2 MG PO SCH ×2 (08:43→16:46)
[2017-05-12] MEDS: Fluconazole 100 MG TAB* TAB PO SCH (08:43)
[2017-05-12] MEDS: Nystatin TOP POWDER* 15 GM BTL TOPICAL SCH ×2 (08:46→16:18)
[2017-05-12] MEDS: predniSONE TAB* 10 MG PO SCH (08:47)
--- NOTE | 2017-05-12 10:34 | DS ---
CC: Dr. Trinidad; Dr. Rhodes * DISCHARGE SUMMARY: DATE OF ADMISSION: 05/06/17 DATE OF DISCHARGE: 05/12/17 PRIMARY CARE PROVIDER: Dr. Rhodes. DISCHARGE DIAGNOSES: 1. Disseminated cutaneous candidiasis in the patient who had recent antibiotics treatment. 2. Rash on the patient's back and extremities, suspect drug reaction. 3. The patient was on cephalexin and azithromycin prior to developing the rash. SECONDARY DIAGNOSES: 1. History of chronic pulmonary obstructive disease, oxygen dependent at 4 L and prednisone dependent at 10 mg daily. 2. Chronic hypoxic and hypercapnic respiratory failure secondary to above. 3. History of diabetes type 2. 4. History of diastolic dysfunction with preserved ejection fraction. 5. History of atrial fibrillation, paroxysmal. 6. Obstructive sleep apnea. 7. Depression. 8. Morbid obesity. MEDICATIONS AT DISCHARGE: Include: 1. Nystatin powder apply to affected areas in the groin and skin folds underneath the patient's breasts 3 times a day. 2. Benadryl 25 mg p.o. every 6 hours for itchiness. 3. Triamcinolone 0.025% ointment one application b.i.d. to affected skin and rash on the patient's back and extremities. 4. Diflucan 400 mg daily for a total of 10 days. Remaining medications are unchanged that include: 1. Trazodone 100 mg p.o. q.h.s. p.r.n. 2. Prednisone 10 mg daily. 3. Glucophage 500 mg b.i.d. 4. Glucotrol 25 mg daily. 5. Spiriva one inhalation daily. 6. Zocor 20 mg at bedtime. 7. Xarelto 20 mg daily. 8. Prilosec 20 mg daily. 9. Dulera 200/5 two puffs in a.m. 10. Xopenex inhaler two puffs every 4 hours p.r.n. 11. Neurontin 300 mg 3 times a day p.r.n. 12. Formoterol nebulizer one nebulizer b.i.d. 13. Ferrous sulfate 325 mg b.i.d. 14. Diltiazem CD 120 mg daily. 15. Celexa 20 mg daily. 16. Bumex 4 mg b.i.d. CONSULTATIONS DURING THE HOSPITAL STAY: Included Dr. Trinidad from Infectious Diseases. LABORATORY DATA: Studies performed during the hospital stay included: On 05/10, white blood cell count of 8.9, hemoglobin 11.1, hematocrit 35, and platelets 256. On 05/10/17, sodium of 137, potassium 3.7, chloride 92, carbon dioxide 40, BUN 15, creatinine 0.98. Blood cultures obtained on 05/06/17 were negative. HOSPITALIZATION COURSE: Regina Sabillon is a 71-year-old female who was treated for cellulitis and discharged from our facility on 04/25/17 with azithromycin and Keflex. She presented to the hospital on 05/06/17 with complaints of generalized itchy rash all over her body. Initially, it was thought that the patient does have disseminated cutaneous candidiasis, but later on it became apparent that the patient has two types of rash, one is severe candidal intertrigo with satellite lesions and another one is likely drug reaction rash that did appear on the patient's back and extremities. Dr. Trinidad saw the patient in consultation and guided the treatment initially with intravenous fluconazole and then p.o. fluconazole at discharge. Dr. Trinidad recommended p.o. fluconazole at 400 mg p.o. daily for another 10 days after discharge. In regards to patient's cutaneous rash, the patient is already on chronic prednisone due to her severe COPD. Due to that, steroids were actually not instituted. The patient was placed on steroid cream and the rash started slowly to resolve by the time of the patient's discharge. By the time of the patient's discharge, the patient still has rather severe candidal intertrigo and still red rash that is rather diffuse on her lower back and bilateral lower extremities, but it is paler and markedly improved from prior. She is recommended to continue nystatin to her groin and abdominal fold areas as well as triamcinolone cream to her upper back and extremities for drug rash. Her azithromycin and Keflex were discontinued and we are not sure which medication caused the drug reaction. The patient is going to be discharged home with recommendation to follow up with her primary care provider in four to seven days. PHYSICAL EXAM AT THE TIME OF DISCHARGE: Blood pressure 134/57, heart rate of 72 and irregularly irregular, respiratory rate 18, oxygen saturation 96% on 4 L of oxygen via nasal cannula. Temperature 97.9. General: The patient is a very pleasant 71-year-old obese female, who is in no acute distress. Alert, awake, and oriented x3. HEENT: Head atraumatic, normocephalic. Eyes: Pupils are equal and reactive to light and accommodation. Oropharynx clear. Mucosa moist. Neck: Supple. No JVD. No bruits bilaterally. Cardiovascular: Irregularly irregular rhythm. No murmur. Respiratory: Distant breath sounds bilaterally with scant bibasilar wheezes. Abdomen: Soft, nontender. Bowel sounds present in all 4 quadrants. Extremities: There is trace bilateral pedal edema. Pulses +2 bilaterally. There is no clubbing or cyanosis. Evaluation of the skin, the patient had severe candidal intertrigo on her pannus , underneath her pannus, bilateral groins, underneath her breasts. The patient also has disseminated erythema and rash surrounding the lower back, scattered all the way to her upper back as well as on her bilateral lower extremities, especially in the knees area. On neuro evaluation, speech is clear. Cranial nerves II through XII are grossly intact. Motor strength is 5/5 bilaterally. At the time of discharge, the patient ambulated comfortably with a roller walker and on 4 L of oxygen, which she normally uses. She is going to be discharged home under the care of her aides who come in to see the patient on a daily basis. The patient also has . Please note that this is a short summary of the patient's hospital stay. Please refer to further medical records for details. TIME SPENT: Approximately 45 minutes was spent on the patient's discharge. [id number]/[facility] #: [id number] MTDhCarles
[2017-05-12 13:47] VITALS: BP 136/66
[2017-05-12] MEDS: Rivaroxaban TAB(*) 20 MG TAB PO SCH (16:46)
== END 2017-05-12 17:35 | disposition home or self-care (01) | DRG 871 ==
LOC: ED 15:32 → SSU 19:08
PROVIDERS: ADMIT Internal Medicine; ATTEND Internal Medicine
DX: B37.7 Candidal sepsis (principal); J96.21 Acute and chronic respiratory failure with hypoxia; I48.0 Paroxysmal atrial fibrillation; J96.12 Chronic respiratory failure with hypercapnia; Z68.41 Body mass index [BMI] 40.0-44.9, adult; I50.30 Unspecified diastolic (congestive) heart failure; L27.0 Generalized skin eruption due to drugs and medicaments taken internally; T36.1X5A Adverse effect of cephalosporins and other beta-lactam antibiotics, initial encounter; T36.3X5A Adverse effect of macrolides, initial encounter; X58.XXXA Exposure to other specified factors, initial encounter; Y92.9 Unspecified place or not applicable; J44.9 Chronic obstructive pulmonary disease, unspecified; Z99.81 Dependence on supplemental oxygen; E11.9 Type 2 diabetes mellitus without complications; G47.33 Obstructive sleep apnea (adult) (pediatric); F32.9 Major depressive disorder, single episode, unspecified; E66.01 Morbid (severe) obesity due to excess calories; Z79.01 Long term (current) use of anticoagulants; Z79.84 Long term (current) use of oral hypoglycemic drugs; Z79.82 Long term (current) use of aspirin; Z79.52 Long term (current) use of systemic steroids; Z79.899 Other long term (current) drug therapy; F17.210 Nicotine dependence, cigarettes, uncomplicated; Z96.652 Presence of left artificial knee joint; Z88.6 Allergy status to analgesic agent; Z88.8 Allergy status to other drugs, medicaments and biological substances
CPT/HCPCS: 36415; 71020; 80048; 80053; 80202; 81003; 81015; 82565; 83605; 84520; 85025; 85610; 85652; 85730; 86140; 87040; 87077; 87086; 87186; 90686; 93005; 94640; 94760; 99406; A9270-GY; J1450; J2270; J3370; J7512

== ENCOUNTER 2017-09-18 19:18 | Inpatient (IN) | payer MEDICARE ==
[2017-09-18] MEDS ORDERED: Albuterol/Ipratropium NEB.SOL* Albuterol 2.5 MG/Ipratropium 0.5 MG 3 ML INH ONE (19:44)
--- NOTE | 2017-09-18 19:54 | ED ---
Shortness of Breath - HPI Summary HPI Summary: 72yo F from home arrives by EMS with chief complaint of shortness of breath for 2 days. She has a hx of COPD/CHF and has been wheezing. Breathing tx at home didnt help much. She was feeling tightness in the chest with breathing and "difficulty getting oxygen." She normally wears 2L NC oxygen. She feels improved with breathing tx, increase in O2 to 5L by EMS. She also received IV dexamethasone from them. She denies fever, coughing up sputum or body aches. Her legs have been swelling. She is NIDDM. - History of Current Complaint Chief Complaint: EDShortnessOfBreath Time Seen by Provider: 09/18/17 19:37 Hx Obtained From: Patient, EMS - Allergy/Home Medications Allergies/Adverse Reactions: Allergies Allergy/AdvReac Type Severity Reaction Status Date / Time MS Ibuprofen [Ibuprofen] Allergy Unknown Verified 02/03/17 21:48 Reaction Details MS Rofecoxib [From Vioxx] Allergy Unknown Verified 02/03/17 21:48 Reaction Details PMH/Surg Hx/FS Hx/Imm Hx Endocrine/Hematology History: Reports: Hx Anticoagulant Therapy - xarelto, Hx Diabetes, Hx Anemia Denies: Hx Blood Disorders, Hx Blood Transfusions, Hx Bone Marrow Disease, Hx Systemic Lupus Erythematosus, Hx Sickle Cell Disease, Hx Thyroid Disease, Hx Unexplained Bleeding, Other Endocrine/Hematological Disorders Cardiovascular History: Reports: Hx Congestive Heart Failure, Hx Coronary Artery Disease, Hx Hypercholesterolemia, Hx Hypertension, Other Cardiovascular Problems/Disorders - A-Fib, CAD, IDDM, OBESITY Denies: Hx Aneurysm, Hx Angina, Hx Angioplasty, Hx Auto Implanted Cardiovert Defib, Hx Cardiac Arrest, Hx Cardiomegaly, Hx Congenital Heart Disease, Hx Deep Vein Thrombosis, Hx Embolism, Hx Hypotension, Hx Myocardial Infarction, Hx Pacemaker/ICD, Hx Peripheral Vascular Disease, Hx Rheumatic Fever, Hx Syncope, Hx Valvular Heart Disease Respiratory History: Reports: Hx Asthma, Hx Chronic Obstructive Pulmonary Disease (COPD), Hx Pleural Effusion, Hx Pneumonia, Hx Seasonal Allergies, Hx Sleep Apnea Denies: Hx Chronic Bronchitis, Hx Cystic Fibrosis, Hx Lung Cancer, Hx Pulmonary Edema, Hx Pulmonary Embolism, Other Respiratory Problems/Disorders GI History: Reports: Hx Gastrointestinal Bleed - Earlier this year. Hospitalized Denies: Hx Cirrhosis, Hx Crohn's Disease, Hx Diverticulosis, Hx Gall Bladder Disease, Hx Gastroesophageal Reflux Disease, Hx Hiatal Hernia, Hx Irritable Bowel, Hx Jaundice, Hx Obstructive Bowel, Hx Ileostomy, Hx Pyloric Stenosis, Hx Ulcer, Other GI Disorders History: Denies: Hx Acute Renal Failure, Hx Benign Prostatic Hyperplasia, Hx Chronic Renal Failure, Hx Dialysis, Hx Kidney Infection, Hx Kidney Stones, Hx Renal Disease, Other Problems/Disorders Musculoskeletal History: Reports: Hx Arthritis, Hx Back Problems, Other Musculoskeletal History - neck stiffness Denies: Hx Bursitis, Hx Congenital Bone Abnormalities, Hx Fibromyalgia, Hx Gout, Hx Orthopedic Injury, Hx Osteoporosis, Hx Scoliosis, Hx Tendonitis Sensory History: Reports: Hx Contacts or Glasses Denies: Hx Cataracts, Hx Eye Injury, Hx Eye Prosthesis, Hx Glaucoma, Hx Legally Blind, Hx Macular Degeneration, Hx Vision Problem, Hx Deafness, Hx Hearing Aid, Hx Hearing Problem, Other Sensory Impairments Opthamlomology History: Reports: Hx Contacts or Glasses Denies: Hx Cataracts, Hx Eye Injury, Hx Eye Prosthesis, Hx Glaucoma, Hx Legally Blind, Hx Macular Degeneration, Hx Vision Problem, Other Sensory Impairments Neurological History: Denies: Hx Dementia, Hx Developmental Delay, Hx Headaches, Hx Migraine, Hx Nerve Disease, Hx Seizures, Hx Spinal Cord Injury, Hx Transient Ischemic Attacks (TIA), Other Neuro Impairments/Disorders Psychiatric History: Reports: Hx Anxiety, Hx Depression - Surgical History Surgery Procedure, Year, and Place: Knee replacement Hx Anesthesia Reactions: No Infectious Disease History: No Infectious Disease History: Reports: Hx of Known/Suspected MRSA Denies: Hx Clostridium Difficile, Hx Hepatitis, Hx Human Immunodeficiency Virus (HIV), Hx Shingles, Hx Tuberculosis, Hx Known/Suspected VRE, Hx Known/ Suspected VRSA, History Other Infectious Disease, Traveled Outside the [place] in Last 30 Days - Family History Known Family History: Positive: None, Cardiac Disease Family History: R & n/C - Social History Alcohol Use: None Hx Substance Use: No Substance Use Type: Reports: None Hx Tobacco Use: Yes Smoking Status (MU): Current Every Day Smoker Type: Cigarettes Length of Time of Smoking/Using Tobacco: 52 Have You Smoked in the Last Year: Yes Review of Systems Positive: Fatigue. Negative: Fever, Chills Eyes: Negative Negative: Sore Throat, Nasal Discharge Positive: Chest Pain. Negative: Palpitations Positive: Shortness Of Breath, Cough, Other - wheezing Negative: Abdominal Pain Positive: Edema Negative: Rash All Other Systems Reviewed And Are Negative: Yes Physical Exam Triage Information Reviewed: Yes Vital Signs On Initial Exam: Initial Vitals Temp Pulse Resp BP Pulse Ox 37.0 C 91 20 147/65 98 09/18/17 19:29 18 19:29 18 19:29 09/18/17 19:29 09/18/17 19:29 Vital Signs Reviewed: Yes Appearance: Positive: Obese - mild distress. Negative: Well-Appearing Skin: Positive: Warm, Dry, Other - crusting of both ear lobes Head/Face: Positive: Normal Head/Face Inspection Eyes: Positive: Normal, EOMI ENT: Positive: Pharynx normal. Negative: Nasal congestion, Nasal drainage, Sinus tenderness Neck: Positive: Supple, Nontender, No Lymphadenopathy Respiratory/Lung Sounds: Positive: Wheezes, Other - diminished at bases. Speaks full sentences but appears dyspnic. Negative: Clear to Auscultation, Rales, Rhonchi Cardiovascular: Positive: Normal, Leg Edema Left, Leg Edema Right - 3+ carson LE edema. Negative: RRR - irregular, rate controlled Abdomen Description: Positive: Nontender, Soft, Other: - morbidly obese Musculoskeletal: Positive: Edema Left, Edema Right. Negative: Pain @ Neurological: Positive: Normal, Sensory/Motor Intact, Alert, Oriented to Person Place, Time Psychiatric: Positive: Normal Diagnostics - Vital Signs Vital Signs Temp Pulse Resp BP Pulse Ox 09/18/17 19:33 20 09/18/17 19:29 37.0 C 91 20 147/65 98 - Laboratory Result Diagrams: 09/18/17 20:20 09/18/17 20:20 ABG Interpretation: pCO2 91 Lab Statement: Any lab studies that have been ordered have been reviewed, and results considered in the medical decision making process. - Radiology CXR Radiology Interpretation Completed By: Radiologist - CXR: mild increased interstitial markings c/w CHF - EKG EKG 1 Cardiac Rate: NL EKG Rhythm: Sinus Rhythm ST Segment: Non-Specific Ectopy: PACs EKG Interpretation: low voltage, freq PACs Re-Evaluation - Re-Evaluation First Eval Change: Improved - feels better with breathing tx, O2 increase. Will place on VapoTherm High flow nasal canula O2. Course/Dx - Diagnoses Differential Diagnosis/HQI/PQRI: Positive: Airway Obstruction, CHF, COPD Exacerbation, Pneumonia Provider Diagnoses: COPD exacerbation, Congestive heart failure (CHF), Chronic respiratory failure with hypercapnia - Physician Notifications Discussed Care of Patient With: Jessica Rich - admit Time Discussed With Above Provider: 21:14 Instructed by Provider To: Admit As Inpatient - Critical Care Time Critical Care Time: 30-74 min - exclusive of separately billable procedures Discharge - Discharge Plan Condition: Guarded Disposition: ADMITTED TO [facility] Referrals: Trevor Rhodes MD [Primary Care Provider] -
--- NOTE | 2017-09-18 20:31 | RAD ---
INDICATION: Shortness of breath. COMPARISON: Comparison is made with a prior chest x-ray study from May 06, 2017. TECHNIQUE: A portable view of the chest was obtained. FINDINGS: The heart appears mildly enlarged and unchanged. There is mild prominence of the interstitial markings. No focal infiltrate or pleural effusion is seen. IMPRESSION: MILD PROMINENCE OF THE INTERSTITIAL MARKINGS SUGGESTING THE POSSIBILITY OF CONGESTIVE HEART FAILURE.
[2017-09-18] MEDS ORDERED: Furosemide IV* 10 MG/ML 10 ML VIAL (100 MG) IV ONE (20:35)
[2017-09-18 20:44] LABS: ABS Basophils 0 10^3/ul (0-0.2); ABS Eosinophils 0.2 10^3/ul (0-0.6); ABS Lymphocytes 0.5 10^3/ul (1.0-4.8); ABS Monocytes 0.7 10^3/ul (0-0.8); ABS Neutrophils 8.1 10^3/ul (1.5-7.7); ABS Nucleated RBC 0 10^3/ul; Eosinophil % 2.3 % (0-6); Hematocrit 30 % (35-47); Hemoglobin 9.2 g/dl (12.0-16.0); Lymphocyte % 5.4 % (25-47); Mean Corpuscular HGB Conc 31 g/dl (31-36); Mean Corpuscular Hemoglobin 26 pg (27-31); Mean Corpuscular Volume 85 fL (80-97); Mean Platelet Volume 7 um3 (7.4-10.4); Nucleated Red Blood Cells % 0.2; Platelet Count 233 10^3/ul (150-450); Red Blood Count 3.56 10^6/ul (4.0-5.4); Red Cell Distribution Width 17 % (10.5-15); White Blood Count 9.6 10^3/ul (3.5-10.8)
[2017-09-18 20:46] LABS: INR 1.29 (0.77-1.02)
[2017-09-18 20:52] LABS: EGFR Non-African American 66.1 (>60)
[2017-09-18] MEDS ORDERED: Al Hydrox/Mg Hydrox/Simet LIQ* 30 ML UDC PO PRN (22:07)
[2017-09-18] MEDS ORDERED: Acetaminophen TAB* 325 MG PO PRN (22:07)
[2017-09-18] MEDS ORDERED: Magnesium Hydroxide LIQ* 30 ML UDC PO PRN (22:07)
[2017-09-18 22:15] LABS: Urine Appearance Clear; Urine Blood Negative (Negative); Urine Color Yellow; Urine Ketones Negative (Negative); Urine Protein Negative (Negative); Urine Specific Gravity 1.008 (1.010-1.030); Urine Urobilinogen Negative (Negative)
[2017-09-18] MEDS ORDERED: Levalbuterol HFA INHALER* 1 PUFF MDI INH PRN (22:16)
[2017-09-18] MEDS ORDERED: Gabapentin CAP(*) 300 MG PO PRN (22:16)
[2017-09-18] MEDS: Levalbuterol 1.25MG/0.5ML NEB INH SCH (23:30)
[2017-09-19] MEDS: Azithromycin IV(*) 500 MG in NS 0.9% 250 ML* 250 ML IVPB SCH ×2 (00:06→23:53)
[2017-09-19] MEDS: methylPREDNISolone SOD 40 MG* 1 ML VIAL IV SCH ×3 (01:11→23:54)
[2017-09-19] MEDS: Levalbuterol 1.25MG/0.5ML NEB INH SCH ×5 (03:24→20:12)
[2017-09-19] MEDS ORDERED: Dextrose 50% Syringe 50 ML* 25 GM/50 ML SYRINGE IV PUSH PRN (05:19)
[2017-09-19] MEDS: Omeprazole CAP* 20 MG PO SCH (06:28)
[2017-09-19 06:58] LABS: ABS Basophils 0 10^3/ul (0-0.2); ABS Eosinophils 0 10^3/ul (0-0.6); ABS Lymphocytes 0.3 10^3/ul (1.0-4.8); ABS Monocytes 0.2 10^3/ul (0-0.8); ABS Neutrophils 7.5 10^3/ul (1.5-7.7); ABS Nucleated RBC 0 10^3/ul; Eosinophil % 0.1 % (0-6); Hematocrit 29 % (35-47); Hemoglobin 8.6 g/dl (12.0-16.0); Lymphocyte % 3.2 % (25-47); Mean Corpuscular HGB Conc 30 g/dl (31-36); Mean Corpuscular Hemoglobin 25 pg (27-31); Mean Corpuscular Volume 84 fL (80-97); Mean Platelet Volume 7 um3 (7.4-10.4); Nucleated Red Blood Cells % 0.1; Platelet Count 208 10^3/ul (150-450); Red Blood Count 3.39 10^6/ul (4.0-5.4); Red Cell Distribution Width 17 % (10.5-15)
[2017-09-19] MEDS: CMCS: Formoterol 20 MCG/2ML NEB (NF) 10 MCG/ML NEB.SOLN INH SCH ×2 (07:13→20:12)
[2017-09-19] MEDS: Tiotropium CAP.INH* CAP.INH/18 MCG (USE ORDER SET !) INH SCH (07:13)
[2017-09-19] MEDS: Mometasone/Formoter 200/5 MDI INH SCH (07:14)
[2017-09-19] MEDS: Insulin LISPRO* 1 UNITS UNIT SUBCUT SCH ×3 (07:24→17:26)
[2017-09-19] MEDS: Bumetanide TAB* 2 MG PO SCH ×2 (08:37→17:26)
[2017-09-19] MEDS: glipiZIDE TAB.XL* 2.5 MG PO SCH (08:37)
[2017-09-19] MEDS: Citalopram TAB* 20 MG PO SCH (08:37)
[2017-09-19] MEDS: Ferrous Sulfate TAB* 325 MG PO SCH ×2 (08:37→20:37)
[2017-09-19] MEDS: metFORMIN* 500 MG TAB PO SCH ×2 (08:37→17:26)
[2017-09-19] MEDS: Diltiazem CD CAP* 120 MG PO SCH (08:37)
--- NOTE | 2017-09-19 08:53 | HP ---
AMENDED REPORT NOW INCLUDES COSIGNER DESIGNATION - ESIGNED BEFORE ADJUSTMENT HISTORY AND PHYSICAL: DATE OF ADMISSION: 09/18/17 PROVIDER: Alisa Cheema NP PRIMARY CARE PROVIDER: Dr. Rhodes. ATTENDING PHYSICIAN WHILE IN THE HOSPITAL: Dr. Jessica Rich * (report dictated by Alisa Cheema NP). CHIEF COMPLAINT: 1. Shortness of breath. 2. Mild lower extremity swelling. HISTORY OF PRESENT ILLNESS: Ms. Sabillon is a 72-year-old female patient with multiple medical problems with a history of CHF, COPD, diabetes, anemia, AFib, GI bleed in the past, depression, obstructive sleep apnea, and hyperlipidemia. She comes in and says over the past 3 days she has had progressively worsening shortness of breath. She complains that her chest was feeling tight and like she was unable to get any oxygen. She does report that she has had occasional chills, but then denies any fever. She also reports that she has had increased swelling to her legs, worse x1 week. Denies having a cough or sore throat. Denies any rhinorrhea. Denies any productive cough. She denies any chest pain. Denies any abdominal pain, nausea, vomiting, or diarrhea. Denies any recent sick contacts. No fevers have been reported. Due to her increased shortness of breath, we were asked to evaluate her for admission. PAST MEDICAL HISTORY: Significant for, 1. AFib. 2. COPD. 3. Anemia. 4. Diastolic heart failure. 5. Depression. 6. Diabetes. 7. Hyperlipidemia. 8. Obstructive sleep apnea. 9. History of GI bleed. PAST SURGICAL HISTORY: The patient had a left total knee arthroplasty. MEDICATIONS: Home medications include: 1. Trazodone. 2. Prednisone 10 mg p.o. daily. 3. Metformin 500 mg p.o. b.i.d. 4. Glipizide 2.5 mg p.o. q. a.m. 5. Diltiazem 120 mg p.o. q. a.m. 6. Benadryl 25 mg p.o. q.6 hours p.r.n. 7. Triamcinolone 0.025 ointment topically b.i.d. p.r.n. 8. Spiriva 1 cap inhaled daily. 9. Zocor 20 mg p.o. at bedtime. 10. Xarelto 20 mg p.o. daily. 11. Omeprazole 20 mg p.o. daily. 12. Nystatin powder t.i.d. 13. Dulera 200/5 two puffs inhaled q. a.m. 14. Xopenex HFA inhaler 2 puff inhales q.4 hours p.r.n. shortness of breath. 15. Gabapentin 300 mg t.i.d. p.r.n. 16. Perforomist 1 nebulizer b.i.d. 17. Ferrous sulfate 325 mg p.o. b.i.d. 18. Citalopram 20 mg p.o. q. a.m. 19. Bumex 4 mg p.o. b.i.d. ALLERGIES: 1. IBUPROFEN. 2. VIOXX. FAMILY HISTORY: Mother at age 55 due to alcoholic cirrhosis. Father had an unknown type of cancer. SOCIAL HISTORY: Reports she continues to smoke 5 to 6 cigarettes daily for the last 4 to 5 months. Prior to that, she smoked between 1 to 2 packs a day for 56 years. She denies any alcohol or drug use. She is not currently employed. She does live at home alone. Her surrogate decision maker in the event she is unable to make her own decisions is her son-in-law, Naveen; his phone number is . REVIEW OF SYSTEMS: There was no documented fever. No significant weight change. There is no double vision. No ear drainage. No rhinorrhea. There is no sore throat. She does report some chest tightness and feeling of unable to take a deep breath. She reports increased shortness of breath with exertion and with sitting. There was no abdominal pain. No nausea, vomiting, or diarrhea. No dysuria. No urinary frequency. Denies any cough or cold symptoms. There was no seizures, no loss of consciousness. No pruritus. She does report a small area of redness on her right posterior thigh. A review of 14 systems was completed and all others are negative. PHYSICAL EXAMINATION GENERAL: At this time, Ms. Sabillon is a 72-year-old female who appears in moderate respiratory distress and lying on the stretcher in the emergency room. VITAL SIGNS: Blood pressure 147/65, temperature was 98.6, heart rate was 91, respirations are 20 to 22, O2 saturation was 93% on high flow O2 of 40 and FiO2 rate of 60. HEENT: Head is atraumatic, normocephalic. Eyes: EOMs are intact. Sclerae anicteric, not pale. Oral mucosa appears to be dry. NECK: Supple. LUNGS: With inspiratory and expiratory wheezes throughout. She does have diminished breath sounds. There is also scattered rhonchi throughout bilaterally. HEART: S1, S2 with regular rate and rhythm. There are no murmurs, rubs, or gallops. ABDOMEN: Soft, rounded, and nontender. Bowel sounds are present x4. EXTREMITIES: +2 throughout. She is moving all 4 extremities. She does have + 1 to +2 pitting edema to bilateral lower legs and some mild redness noted to bilateral lower legs. NEUROLOGIC: She is awake, alert, and oriented x3. Speech is clear. There is no gross focal deficits. SKIN: Her skin is intact. She does have a small white discolored area to right posterior thigh near the buttocks with surrounding erythema noted. Her bilateral lower legs also have some mild erythema and +1 to +2 pitting edema is noted to bilateral lower legs. DIAGNOSTIC STUDIES/LABORATORY DATA: WBCs are 9.6, RBCs 3.56, hemoglobin was 9.2, hematocrit was 30, platelet count was 233. INR was 1.29. Blood gas, ABG pH was 7.39, ABG pCO2 was 91, pO2 was 60, ABG HCO3 was 45.3, ABG O2 saturation was 94.7 and base excess was 26.3. This was on FiO2 of 40. Chemistry: Sodium was 138, potassium 3.8, chloride was 88, carbon dioxide was 44, anion gap was 6 , BUN was 21, creatinine 0.85. Glucose was 122, lactic acid was 0.9. Calcium was 8.7, ASTs were 10, ALTs were 7. BNP was 176. Urine was clear yellow, pH was 7.0, specific gravity was 1.008. Urine protein, ketones, blood, nitrites, bilirubin, urobilinogen were all negative. Urine leuko esterase was 2+. Urine wbc's were 3+. Urine rbc's were trace. Squamous epithelial cells were present. Urine bacteria was absent and glucose was also negative. Chest x-ray, mild predominance of interstitial markings suggesting the possibility of congestive heart failure. EKG shows sinus tachycardia at a rate of 92. ASSESSMENT AND PLAN: Ms. Sabillon is a 72-year-old female that presented to the emergency room today with complaints of increased shortness of breath x3 days and bilateral lower leg swelling x1 week. We will be admitting her in inpatient for: 1. COPD exacerbation. I suspect that her shortness of breath is related to the COPD exacerbation. We will place her on Solu-Medrol 40 mg IV q.12 hours. We will continue her home inhalers and nebulizers. We will place her on Xopenex 1.25 mg inhaled every 4 hours as needed for shortness of breath. We will continue her Spiriva and Dulera. We will also place her on azithromycin 500 mg IV q. 24 hours as her COPD exacerbation could be related to an underlying inflammatory process related to respiratory infection. She will be on Vapotherm and monitored in the ICU. We will place her on telemetry and monitor her O2 saturations. 2. I suspect there may also be some underlying CHF that could be contributing to her shortness of breath. She was given Lasix 40 mg IV in the emergency room. We will continue to monitor her fluid level. We will place om strick I' s and O's and daily weights. We will continue her on her Bumex 4 mg p.o. b.i.d. could consider giving an additional dose of IV Lasix as needed. 3. Diabetes. Stable. We will continue her on her metformin and glipizide. We will get Accu-Cheks a.c. 4. She has a history of AFib. We will continue her on her Xarelto and also continue her Cardizem CD. She is currently in sinus rhythm with PACs. 5. History of depression. This is stable at this time. We will continue her on her Celexa. 6. History of hyperlipidemia. We will continue her on her Lipitor 40 mg p.o. at bedtime. 7. FEN: She will be placed on a consistent carb diet. 8. Code status: She is a full code. 9. DVT prophylaxis: She will continue her Xarelto for DVT prophylaxis. 10. Disposition: She will be admitted inpatient to ICU on Vapotherm. TIME SPENT: Time spent on this admission was approximately 60 minutes, greater than half that time was spent [id number] with the patient obtaining her history and physical, the other half time was spent going over her plan of care and implementing that plan of care. I discussed this with my attending Dr. Jessica Rich, and she in agreement with my plan. ALISA CHEEMA, DOCK GUARD [id number]/CPS #: [id number] TERRY
[2017-09-19] MEDS ORDERED: Spiriva Inhaler DEVICE* 1 EACH DEVICE INH ONE (09:00)
[2017-09-19] MEDS ORDERED: Mouth Piece, Nicotine* 1 EACH CARTRIDGE INH PRN (15:16)
[2017-09-19] MEDS ORDERED: Nicotine Inhaler* 10 MG AMP INH PRN (15:16)
--- NOTE | 2017-09-19 15:31 | PN ---
Subjective Date of Service: 09/19/17 Interval History: Patient seen and examined at bedside. Denies fever, chills, chest discomfort, N/ V/D. Pt continues to have shortness of breath above her baseline, but feels it is improving. Pt is interested in stopping to smoke since the housing she lives in will be going smoke free. Tele: Sinus rhythm, rate 80-90's Family History: Unchanged from Admission Social History: Unchanged from Admission Past Medical History: Unchanged from Admission Objective Active Medications: Acetaminophen (Tylenol Tab*) 650 mg PO Q4H PRN Reason: FEVER/PAIN Al Hydrox/Mg Hydrox/Simethicone (Maalox Plus*) 30 ml PO Q6H PRN Reason: INDIGESTION Atorvastatin Calcium (Lipitor*) 40 mg PO BEDTIME [facility] Bumetanide (Bumex Tab*) 4 mg PO 0800,1600 [facility] Citalopram Hydrobromide (Celexa Tab*) 20 mg PO DAILY [facility] Dextrose (D50w Syringe 50 Ml*) 12.5 gm IV PUSH .FOR FS < 60 - SS PRN Reason: FS < 60 Diltiazem HCl (Cardizem Cd Cap*) 120 mg PO DAILY [facility] Ferrous Sulfate (Ferrous Sulfate Tab*) 325 mg PO BID [facility] Formoterol Fumarate (Perforomist Neb.Soln*(Nf)) 20 mcg INH BID [facility] Gabapentin (Neurontin Cap(*)) 300 mg PO TID PRN Reason: PAIN Glipizide (Glucotrol Xl*) 2.5 mg PO QAM [facility] Azithromycin 500 mg/ Sodium (Chloride) 250 mls @ 250 mls/hr IVPB Q24H [facility] Insulin Human Lispro (Humalog*) 0 units SUBCUT AC [facility] Levalbuterol HCl (Xopenex 1.25 Mg/0.5 Ml Neb.Zaria*) 1.25 mg INH [id number] AWAKE [facility] Magnesium Hydroxide (Milk Of Magnesia Liq*) 30 ml PO Q4H PRN Reason: CONSTIPATION Metformin HCl (Glucophage*) 500 mg PO BID WITH MEALS [facility] Methylprednisolone Sodium Succinate (Solu-Medrol 40 Mg) 40 mg IV Q12H [facility] Mometasone Furoate/Formoterol Fumar (Dulera 200/5 Mdi*) 2 puff INH QAM [facility] Omeprazole (Prilosec Cap*) 20 mg PO DAILY@0600 [facility] Rivaroxaban (Xarelto(*)) 20 mg PO DAILY@1700 [facility] Tiotropium Motley (Spiriva Cap.Inh*) 1 cap INH DAILY [facility] Vital Signs - 8 hr 09/19/17 09/19/17 09/19/17 07:16 07:18 07:30 Temperature Pulse Rate 88 95 Respiratory 26 17 20 Rate Blood Pressure (mmHg) O2 Sat by Pulse 97 99 Oximetry 09/19/17 09/19/17 09/19/17 07:31 07:46 07:49 Temperature 98.6 F Pulse Rate 88 85 Respiratory 17 19 Rate Blood Pressure 137/107 139/82 (mmHg) O2 Sat by Pulse 92 92 Oximetry 09/19/17 09/19/17 09/19/17 08:00 08:02 08:31 Temperature Pulse Rate 92 91 90 Respiratory 28 19 16 Rate Blood Pressure 137/51 134/68 (mmHg) O2 Sat by Pulse 93 90 95 Oximetry 09/19/17 09/19/17 09/19/17 09:00 09:01 09:16 Temperature Pulse Rate 98 91 91 Respiratory 22 17 22 Rate Blood Pressure 117/83 127/57 (mmHg) O2 Sat by Pulse 96 90 96 Oximetry 09/19/17 09/19/17 09/19/17 09:31 09:45 10:00 Temperature Pulse Rate 93 93 99 Respiratory 22 25 25 Rate Blood Pressure 127/52 121/56 145/69 (mmHg) O2 Sat by Pulse 93 96 97 Oximetry 09/19/17 09/19/17 09/19/17 10:16 10:45 11:00 Temperature Pulse Rate 90 91 88 Respiratory 30 18 25 Rate Blood Pressure 118/64 129/64 (mmHg) O2 Sat by Pulse 96 95 97 Oximetry 09/19/17 09/19/17 09/19/17 11:01 11:15 11:32 Temperature Pulse Rate 82 90 86 Respiratory 22 25 19 Rate Blood Pressure 123/64 135/74 134/71 (mmHg) O2 Sat by Pulse 95 94 94 Oximetry 09/19/17 09/19/17 09/19/17 11:45 12:00 12:01 Temperature 98.3 F Pulse Rate 82 94 90 Respiratory 18 23 30 Rate Blood Pressure 124/82 114/95 (mmHg) O2 Sat by Pulse 93 97 97 Oximetry 09/19/17 09/19/17 09/19/17 12:17 12:30 12:46 Temperature Pulse Rate 85 86 90 Respiratory 16 15 22 Rate Blood Pressure 120/50 127/61 120/52 (mmHg) O2 Sat by Pulse 97 95 96 Oximetry 09/19/17 09/19/17 09/19/17 13:00 13:02 13:31 Temperature Pulse Rate 102 90 97 Respiratory 28 22 35 Rate Blood Pressure 129/64 137/53 (mmHg) O2 Sat by Pulse 95 96 95 Oximetry 09/19/17 09/19/17 09/19/17 13:45 14:00 14:01 Temperature Pulse Rate 93 92 87 Respiratory 22 26 20 Rate Blood Pressure 146/65 121/55 (mmHg) O2 Sat by Pulse 95 94 94 Oximetry 09/19/17 09/19/17 09/19/17 14:16 14:31 14:45 Temperature Pulse Rate 90 85 85 Respiratory 20 24 16 Rate Blood Pressure 123/55 128/63 125/59 (mmHg) O2 Sat by Pulse 94 95 95 Oximetry 09/19/17 09/19/17 09/19/17 15:00 15:01 15:12 Temperature Pulse Rate 85 85 93 Respiratory 27 26 22 Rate Blood Pressure 125/64 (mmHg) O2 Sat by Pulse 94 95 95 Oximetry Oxygen Devices in Use Now: High Flow Heated Nasal Cannula - 20L Appearance: NAD, sitting up in a chair Ears/Nose/Mouth/Throat: Mucous Membranes Moist Respiratory: Symmetrical Chest Expansion and Respiratory Effort, - - Wheezing bilateral Cardiovascular: NL Sounds; No Murmurs; No JVD, RRR Abdominal: NL Sounds; No Tenderness; No Distention Extremities: - - Bilateral LE edema Skin: No Rash or Ulcers Neurological: Alert and Oriented x 3, NL Muscle Strength and Tone Lines/Tubes/Other Access: Clean, Dry and Intact Peripheral IV - site benign Nutrition: Taking PO's Result Diagrams: 09/19/17 06:15 09/19/17 06:15 Microbiology and Other Data: Microbiology 09/18/17 23:20 Nasal Screen MRSA (PCR)(GIOVANNI) - Final Nasal Mrsa Not Detected 09/18/17 23:45 Influenza Types A,B Antigen (GIOVANNI) - Final Nasal Specimen received for Influenza A/B Molecular testing Assess/Plan/Problems-Billing Assessment: Ms. Sabillon is a 72 yo female with PMH significant for COPD, chronic hypercarbic/ hypoxic respiratory failure, DM, HF, P Afib, KEVON, depression, and obesity who presented to the emergency room with complaints of shortness of breath. - Patient Problems (1) COPD exacerbation Code(s): J44.1 - CHRONIC OBSTRUCTIVE PULMONARY DISEASE W (ACUTE) EXACERBATION SNOMED Code(s): 286941517240277 Comment: - Slowly Improving - Continues to require vapotherm - Continue Solu-medrol, azithromycin, inhalers and nebs (2) Diastolic heart failure Code(s): I50.30 - UNSPECIFIED DIASTOLIC (CONGESTIVE) HEART FAILURE SNOMED Code (s): 759270568 Comment: - Suspect mild CHF exacerbation - Received IV lasix yesterday - Continue daily weights and strict I+O's - Continue Bumex, ASA, and antihypertensives (3) Chronic hypercapnic respiratory failure Comment: - Acute on chronic - With acute on chronic hypoxic respiratory failure - Pt refuses BIPAP/CPAP at home. - Avoid narcotics, as she has had issues with retention after narcotics on prior hospitalizations (4) Type II diabetes mellitus Comment: - Glucose 140-190's - Continue metformin, glipizide, and Lispro SS (5) Afib Code(s): I48.91 - UNSPECIFIED ATRIAL FIBRILLATION SNOMED Code(s): 32301427 Comment: - In Sinus rhythm, rate controlled - Continue xarelto and diltazem (6) Depression Code(s): F32.9 - MAJOR DEPRESSIVE DISORDER, SINGLE EPISODE, UNSPECIFIED SNOMED Code(s): 19142538 Comment: - Continue citalopram (Celexa) 20 mg PO DAILY (7) Iron deficiency anemia Code(s): D50.9 - IRON DEFICIENCY ANEMIA, UNSPECIFIED SNOMED Code(s): 49145461 Comment: - Noted - HH down from baseline - Continue ferrous sulfate - Will check a stool for occult blood and trend HH (8) Morbid obesity with BMI of 45.0-49.9, adult Code(s): E66.01 - MORBID (SEVERE) OBESITY DUE TO EXCESS CALORIES; Z68.42 - BODY MASS INDEX (BMI) 45.0-49.9, ADULT SNOMED Code(s): 751827532 Comment: - noted (9) KEVON (obstructive sleep apnea) Code(s): G47.33 - OBSTRUCTIVE SLEEP APNEA (ADULT) (PEDIATRIC) SNOMED Code(s): 38478627 Comment: - Non-compliant with CPAP (10) HLD (hyperlipidemia) Code(s): E78.5 - HYPERLIPIDEMIA, UNSPECIFIED SNOMED Code(s): 11062027 Comment: - Continue atorvastatin (11) Tobacco abuse Code(s): Z72.0 - TOBACCO USE SNOMED Code(s): 402752935 Comment: - Pt again advised to quit smoking and avoid second hand smoke - Nicotine replacement available (12) DVT prophylaxis Code(s): IHH0157 - SNOMED Code(s): 929825094 Comment: - Continue xarelto (13) DNR (do not resuscitate) Status and Disposition: Inpatient. Discharge to home when medically stable.
[2017-09-19] MEDS: Rivaroxaban TAB(*) 20 MG TAB PO SCH (17:26)
[2017-09-19] MEDS: Atorvastatin* 40 MG TAB PO SCH (20:37)
[2017-09-19] MEDS: Nicotine Patch Removal NOTE FOLLOW UP SCH (22:44)
[2017-09-20] MEDS: Levalbuterol 1.25MG/0.5ML NEB INH SCH ×3 (01:05→13:41)
[2017-09-20] MEDS: Omeprazole CAP* 20 MG PO SCH (05:42)
[2017-09-20 06:00] LABS: ABS Basophils 0.1 10^3/ul (0-0.2); ABS Eosinophils 0 10^3/ul (0-0.6); ABS Lymphocytes 0.3 10^3/ul (1.0-4.8); ABS Monocytes 0.3 10^3/ul (0-0.8); ABS Neutrophils 9.3 10^3/ul (1.5-7.7); ABS Nucleated RBC 0 10^3/ul; Eosinophil % 0 % (0-6); Hematocrit 29 % (35-47); Hemoglobin 8.9 g/dl (12.0-16.0); Lymphocyte % 3.3 % (25-47); Mean Corpuscular HGB Conc 30 g/dl (31-36); Mean Corpuscular Hemoglobin 25 pg (27-31); Mean Corpuscular Volume 84 fL (80-97); Mean Platelet Volume 7 um3 (7.4-10.4); Nucleated Red Blood Cells % 0.2; Platelet Count 226 10^3/ul (150-450); Red Blood Count 3.51 10^6/ul (4.0-5.4); Red Cell Distribution Width 16 % (10.5-15)
[2017-09-20 06:14] LABS: EGFR Non-African American 60.3 (>60)
[2017-09-20] MEDS: Tiotropium CAP.INH* CAP.INH/18 MCG (USE ORDER SET !) INH SCH (08:04)
[2017-09-20] MEDS: Mometasone/Formoter 200/5 MDI INH SCH (08:05)
[2017-09-20] MEDS: CMCS: Formoterol 20 MCG/2ML NEB (NF) 10 MCG/ML NEB.SOLN INH SCH ×2 (08:05→19:43)
[2017-09-20] MEDS: Diltiazem CD CAP* 120 MG PO SCH (09:14)
[2017-09-20] MEDS: Insulin LISPRO* 1 UNITS UNIT SUBCUT SCH ×3 (09:14→16:55)
[2017-09-20] MEDS: metFORMIN* 500 MG TAB PO SCH ×2 (09:15→16:50)
[2017-09-20] MEDS: Ferrous Sulfate TAB* 325 MG PO SCH ×2 (09:15→20:21)
[2017-09-20] MEDS: Citalopram TAB* 20 MG PO SCH (09:15)
[2017-09-20] MEDS: glipiZIDE TAB.XL* 2.5 MG PO SCH (09:15)
[2017-09-20] MEDS: Bumetanide TAB* 2 MG PO SCH ×2 (09:39→16:50)
[2017-09-20] MEDS: Nicotine PATCH 14 MG/24 HR* PATCH TRANSDERM SCH (09:39)
--- NOTE | 2017-09-20 11:05 | CONSULT ---
Palliative / Hospice Consult Ordering Provider: Melisa Villa - Subjective Code Status: DNR Advance Directives Location: In Chart MOLST Part A Completed: Yes Date: 09/20/17 MOLST Part E Completed:: Yes - CC, DNI, no hosp., no STACI Date: 09/20/17 HCP Completed: Yes - daughter Kyra Hatfield - History or Present Illness History or Present Illness: This 72 year old woman with chronic hypercarbic hypoxic respiratory failure, CHF , DM, anemia, AF, hx GI bleeding, KEVON, HLD and depression is admitted for her fifth hospitalization in 9 months. She has been here with various admission diagnoses, including CHF, COPD exacerbation, cellulitis. She lives alone in an apartment at [facility] and wants to remain living there independently. She has some confusing advance directives, including a HCP naming her daughter Kyra , but also stating she wants "no feeding tube, no life-saving means of any kind, " but also a MOLST form from 2015 specifying "no limitations on medical interventions" along with a DNR order. She has been chronically on 2 LPM O2 at home, but has adjusted this herself up to 4 LPM when she checks her O2 sat and finds it low. She claims to understand the risk of CO2 retention. She says her oximeter has measured O2 saturations as low as 34%. She has a PCP, Dr. Rhodes, whom she sees rarely because it is very difficult for her to get to his office, as she is morbidly obese, has COPD and CHF, does not drive. She understands she has end-stage disease and was interested in the Medicare hospice benefit as a means to obtain her care at home and avoid future hospitalizations. Lab Values: Abnormal Lab Results 09/19/17 09/19/17 09/19/17 06:15 12:40 17:15 WBC RBC Hgb Hct MCV MCH MCHC RDW Plt Count MPV Neut % (Auto) Lymph % (Auto) Vernon % (Auto) Eos % (Auto) Baso % (Auto) Absolute Neuts (auto) Absolute Lymphs (auto) Absolute Monos (auto) Absolute Eos (auto) Absolute Basos (auto) Absolute Nucleated RBC Nucleated RBC % Sodium 137 Potassium 4.1 Chloride 88 L Carbon Dioxide 45 H* Anion Gap 4 BUN 20 Creatinine 0.78 Est GFR ( Amer) 93.9 Est GFR (Non-Af Amer) 73.0 BUN/Creatinine Ratio 25.6 H Glucose 191 H POC Glucose (mg/dL) 145 H 171 H Calcium 8.8 Magnesium 2.0 09/20/17 09/20/17 09/20/17 05:49 05:49 08:37 WBC 10.0 RBC 3.51 L Hgb 8.9 L Hct 29 L MCV 84 MCH 25 L MCHC 30 L RDW 16 H Plt Count 226 MPV 7 L Neut % (Auto) 93.2 H Lymph % (Auto) 3.3 L Vernon % (Auto) 2.7 Eos % (Auto) 0 Baso % (Auto) 0.8 Absolute Neuts (auto) 9.3 H Absolute Lymphs (auto) 0.3 L Absolute Monos (auto) 0.3 Absolute Eos (auto) 0 Absolute Basos (auto) 0.1 Absolute Nucleated RBC 0 Nucleated RBC % 0.2 Sodium 137 Potassium 4.0 Chloride 89 L Carbon Dioxide 43 H* Anion Gap 5 BUN 28 H Creatinine 0.92 Est GFR ( Amer) 77.6 Est GFR (Non-Af Amer) 60.3 BUN/Creatinine Ratio 30.4 H Glucose 160 H POC Glucose (mg/dL) 173 H Calcium 8.9 Magnesium Laboratory Last Values WBC 10.0 10^3/ul (3.5-10.8) 09/20/17 05:49 RBC 3.51 10^6/ul (4.0-5.4) L 09/20/17 05:49 Hgb 8.9 g/dl (12.0-16.0) L 09/20/17 05:49 Hct 29 % (35-47) L 09/20/17 05:49 MCV 84 fL (80-97) 09/20/17 05:49 MCH 25 pg (27-31) L 09/20/17 05:49 MCHC 30 g/dl (31-36) L 09/20/17 05:49 RDW 16 % (10.5-15) H 09/20/17 05:49 Plt Count 226 10^3/ul (150-450) 09/20/17 05:49 MPV 7 um3 (7.4-10.4) L 09/20/17 05:49 Neut % (Auto) 93.2 % (38-83) H 09/20/17 05:49 Lymph % (Auto) 3.3 % (25-47) L 09/20/17 05:49 Vernon % (Auto) 2.7 % (1-9) 09/20/17 05:49 Eos % (Auto) 0 % (0-6) 09/20/17 05:49 Baso % (Auto) 0.8 % (0-2) 09/20/17 05:49 Absolute Neuts (auto) 9.3 10^3/ul (1.5-7.7) H 09/20/17 05:49 Absolute Lymphs (auto) 0.3 10^3/ul (1.0-4.8) L 09/20/17 05:49 Absolute Monos (auto) 0.3 10^3/ul (0-0.8) 09/20/17 05:49 Absolute Eos (auto) 0 10^3/ul (0-0.6) 09/20/17 05:49 Absolute Basos (auto) 0.1 10^3/ul (0-0.2) 09/20/17 05:49 Absolute Nucleated RBC 0 10^3/ul 09/20/17 05:49 Nucleated RBC % 0.2 09/20/17 05:49 INR (Anticoag Therapy) 1.29 (0.77-1.02) H 09/18/17 20:20 Patient Temperature Not Reportable 09/18/17 20:15 ABG pH 7.39 (7.35-7.45) 09/18/17 20:15 ABG pH (Temp Correct) Not Reportable 09/18/17 20:15 ABG pCO2 91 mmHg (35-45) H* 09/18/17 20:15 ABG pCO2 (Temp Corrct Not Reportable 09/18/17 20:15 ABG pO2 60 mmHg (80-100) L 09/18/17 20:15 ABG pO2 (Temp Correct Not Reportable 09/18/17 20:15 ABG HCO3 45.3 mmol/L (19-31) H* 09/18/17 20:15 ABG O2 Saturation 94.7 % (95-98) L 09/18/17 20:15 ABG Base Excess 26.3 (-2.0-2.0) H 09/18/17 20:15 Respiration Rate Not Reportable 09/18/17 20:15 O2 Delivery Device nasal cannula 09/18/17 20:15 Ventilator Type Not Reportable 09/18/17 20:15 Vent Mode Not Reportable 09/18/17 20:15 FiO2 40 09/18/17 20:15 Inspiratory Time Not Reportable 09/18/17 20:15 PEEP Not Reportable 09/18/17 20:15 Pressure Support Not Reportable 09/18/17 20:15 Pressure Control Not Reportable 09/18/17 20:15 EPAP Not Reportable 09/18/17 20:15 IPAP Not Reportable 09/18/17 20:15 BiPAP Not Reportable 09/18/17 20:15 Sodium 137 mmol/L (133-145) 09/20/17 05:49 Potassium 4.0 mmol/L (3.5-5.0) 09/20/17 05:49 Chloride 89 mmol/L (101-111) L 09/20/17 05:49 Carbon Dioxide 43 mmol/L (22-32) H* 09/20/17 05:49 Anion Gap 5 mmol/L (2-11) 09/20/17 05:49 BUN 28 mg/dL (6-24) H 09/20/17 05:49 Creatinine 0.92 mg/dL (0.51-0.95) 09/20/17 05:49 Est GFR ( Amer) 77.6 (>60) 09/20/17 05:49 Est GFR (Non-Af Amer) 60.3 (>60) 09/20/17 05:49 BUN/Creatinine Ratio 30.4 (8-20) H 09/20/17 05:49 Glucose 160 mg/dL (70-100) H 09/20/17 05:49 POC Glucose (mg/dL) 173 mg/dL (70-100) H 09/20/17 08:37 Lactic Acid 0.9 mmol/L (0.5-2.0) 09/18/17 20:20 Calcium 8.9 mg/dL (8.6-10.3) 09/20/17 05:49 Magnesium 2.0 mg/dL (1.9-2.7) 09/19/17 06:15 Total Bilirubin 0.40 mg/dL (0.2-1.0) 09/18/17 20:20 AST 10 U/L (13-39) L 09/18/17 20:20 ALT 7 U/L (7-52) 09/18/17 20:20 Alkaline Phosphatase 66 U/L (34-104) 09/18/17 20:20 Troponin I 0.01 ng/mL (<0.04) 09/18/17 20:20 B-Natriuretic Peptide 176 pg/mL (-100) H 09/18/17 20:20 Total Protein 6.6 g/dL (6.4-8.9) 09/18/17 20:20 Albumin 3.6 g/dL (3.2-5.2) 09/18/17 20:20 Globulin 3.0 g/dL (2-4) 09/18/17 20:20 Albumin/Globulin Ratio 1.2 (1-3) 09/18/17 20:20 Urine Color Yellow 09/18/17 21:44 Urine Appearance Clear 09/18/17 21:44 Urine pH 7.0 (5-9) 09/18/17 21:44 Ur Specific [place] 1.008 (1.010-1.030) L 09/18/17 21:44 Urine Protein Negative (Negative) 09/18/17 21:44 Urine Ketones Negative (Negative) 09/18/17 21:44 Urine Blood Negative (Negative) 09/18/17 21:44 Urine Nitrate Negative (Negative) 09/18/17 21:44 Urine Bilirubin Negative (Negative) 09/18/17 21:44 Urine Urobilinogen Negative (Negative) 09/18/17 21:44 Ur Leukocyte Esterase 2+ (Negative) H 09/18/17 21:44 Urine WBC (Auto) 3+(>20/hpf) (Absent) H 09/18/17 21:44 Urine RBC (Auto) Trace(0-2/hpf) (Absent) 09/18/17 21:44 Ur Squamous Epith Cells Present (Absent) H 09/18/17 21:44 Urine Bacteria Absent (Absent) 09/18/17 21:44 Urine Glucose Negative (Negative) 09/18/17 21:44 Influenza A (Rapid) Negative (Negative) 09/19/17 00:00 Influenza B (Rapid) Negative (Negative) 09/19/17 00:00 - Objective Active Medications: Acetaminophen (Tylenol Tab*) 650 mg PO Q4H PRN PRN Reason: FEVER/PAIN Al Hydrox/Mg Hydrox/Simethicone (Maalox Plus*) 30 ml PO Q6H PRN PRN Reason: INDIGESTION Atorvastatin Calcium (Lipitor*) 40 mg PO BEDTIME [facility] Last Admin: 09/19/17 20:37 Dose: 40 mg Bumetanide (Bumex Tab*) 4 mg PO 0800,1600 [facility] Last Admin: 09/20/17 09:39 Dose: 4 mg Citalopram Hydrobromide (Celexa Tab*) 20 mg PO DAILY [facility] Last Admin: 09/20/17 09:15 Dose: 20 mg Device (Nicotine Mouth Piece*) 1 each INH .USE WITH NICOTROL PRN PRN Reason: CRAVING Dextrose (D50w Syringe 50 Ml*) 12.5 gm IV PUSH .FOR FS < 60 - SS PRN PRN Reason: FS < 60 Diltiazem HCl (Cardizem Cd Cap*) 120 mg PO DAILY [facility] Last Admin: 09/20/17 09:14 Dose: 120 mg Ferrous Sulfate (Ferrous Sulfate Tab*) 325 mg PO BID [facility] Last Admin: 09/20/17 09:15 Dose: 325 mg Formoterol Fumarate (Perforomist Neb.Soln*(Nf)) 20 mcg INH BID [facility] Last Admin: 09/20/17 08:05 Dose: 20 mcg Gabapentin (Neurontin Cap(*)) 300 mg PO TID PRN PRN Reason: PAIN Glipizide (Glucotrol Xl*) 2.5 mg PO QAM [facility] Last Admin: 09/20/17 09:15 Dose: 2.5 mg Azithromycin 500 mg/ Sodium (Chloride) 250 mls @ 250 mls/hr IVPB Q24H [facility] Last Admin: 09/19/17 23:53 Dose: 250 mls/hr Insulin Human Lispro (Humalog*) 0 units SUBCUT AC [facility] PRN Reason: Protocol Last Admin: 09/20/17 09:14 Dose: 1 units Levalbuterol HCl (Xopenex 1.25 Mg/0.5 Ml Neb.Zaria*) 1.25 mg INH [id number] AWAKE [facility] Last Admin: 09/20/17 08:03 Dose: Not Given Magnesium Hydroxide (Milk Of Magnesia Liq*) 30 ml PO Q4H PRN PRN Reason: CONSTIPATION Metformin HCl (Glucophage*) 500 mg PO BID WITH MEALS [facility] Last Admin: 09/20/17 09:15 Dose: 500 mg Methylprednisolone Sodium Succinate (Solu-Medrol 40 Mg) 40 mg IV 0000,1200 [facility] Last Admin: 09/19/17 23:54 Dose: 40 mg Mometasone Furoate/Formoterol Fumar (Dulera 200/5 Mdi*) 2 puff INH QAM [facility] Last Admin: 09/20/17 08:05 Dose: 2 puff Nicotine (Nicotine Inhaler*) 10 mg INH Q2H PRN PRN Reason: CRAVING Nicotine (Nicotine Patch 14 Mg/24 Hr*) 1 patch TRANSDERM DAILY [facility] Last Admin: 09/20/17 09:39 Dose: 1 patch Omeprazole (Prilosec Cap*) 20 mg PO DAILY@0600 [facility] Last Admin: 09/20/17 05:42 Dose: 20 mg Pharmacy Profile Note (Nicotine Patch Removal Note*) 1 note FOLLOW UP 2100 [facility] Last Admin: 09/19/17 22:44 Dose: 1 note Rivaroxaban (Xarelto(*)) 20 mg PO DAILY@1700 [facility] Last Admin: 09/19/17 17:26 Dose: 20 mg Tiotropium [place] (Spiriva Cap.Inh*) 1 cap INH DAILY [facility] Last Admin: 09/20/17 08:04 Dose: 1 cap Vital Signs: Vital Signs: Temp Pulse Resp BP Pulse Ox 98.4 F 102 24 114/71 94 09/20/17 07:28 09/20/17 10:01 09/20/17 10:01 09/20/17 10:01 09/20/17 10:01 Patient Weight: Weight 235 lb 14.314 oz Intake and Output: Intake & Output 09/18/17 09/19/17 09/20/17 09/21/17 06:59 06:59 06:59 06:59 Intake Total 425 2207 420 Output Total 300 2550 550 Balance 125 -343 -130 Weight 239 lb 10.279 oz 235 lb 14.314 oz Intake: IV Fluids 50 372 ABX - AZITHROMYCIN 275 NS (0.9%) 50 97 IVPB 275 275 ABX - AZITHROMYCIN 275 NS (0.9%) 275 Oral 100 1560 420 Output: Urine 300 2550 550 Other: Estimated Void Large Large Estimated Stool Amount Small # Voids 1 ADLs: Meal Record Start: 09/18/17 23: 10 Freq: 09,13,18 Status: Active Protocol: Document 09/19/17 09:00 [id number] (Rec: 09/19/17 09:32 [id number] ICU-C18) Document 09/19/17 13:00 [id number] (Rec: 09/19/17 15:18 [id number] ICU-C07) Document 09/19/17 18:00 [id number] (Rec: 09/19/17 18:27 [id number] ICU-C14) Document 09/20/17 09:00 [id number] (Rec: 09/20/17 09:18 [id number] [facility]-M05 ) Intake and Output Start: 09/18/17 23: 10 Freq: 06,14,22 Status: Active Protocol: Document 09/19/17 01:23 [id number] (Rec: 09/19/17 01:23 [id number] ICU-M10) Document 09/19/17 06:00 [id number] (Rec: 09/19/17 06:19 [id number] ICU-M10) Document 09/19/17 10:31 [id number] (Rec: 09/19/17 10:32 [id number] ICU-C07) Document 09/19/17 11:57 [id number] (Rec: 09/19/17 11:57 [id number] ICU-C07) Document 09/19/17 13:46 [id number] (Rec: 09/19/17 13:46 [id number] ICU-C07) Document 09/19/17 15:22 [id number] (Rec: 09/19/17 15:22 [id number] ICU-C07) Document 09/19/17 15:38 [id number] (Rec: 09/19/17 15:38 [id number] ICU-C07) Document 09/19/17 19:48 [id number] (Rec: 09/19/17 19:48 [id number] ICU-C07) Document 09/19/17 22:00 [id number] (Rec: 09/19/17 22:22 [id number] ICU-M04) Document 09/20/17 00:22 [id number] (Rec: 09/20/17 00:22 [id number] ICU-C07) Document 09/20/17 05:35 [id number] (Rec: 09/20/17 05:35 [id number] [facility]-M05 ) Document 09/20/17 07:29 [id number] (Rec: 09/20/17 07:29 [id number] ICU-C20) Document 09/20/17 10:54 [id number] (Rec: 09/20/17 10:54 [id number] ICU-C20) General Impression: Pleasant, obese woman able to ambulate, needs assistance getting propped in bed. Head: Symmetrical Eyes: No Scleral Icterus Ears/Nose/Mouth/Throat: Mucous Membranes Moist, - - Dentures Neck: Trachea Midline Cardiovascular: NL Sounds; No Murmurs; No JVD, RRR Respiratory: Symmetrical Chest Expansion and Respiratory Effort Abdominal: NL Sounds; No Tenderness; No Distention Extremities: - - Bilateral LE edema Neurological: Alert and Oriented x 3, NL Muscle Strength and Tone - Assessment Assessment: I discussed the contradictions on her advance directives, and she clarified that she wants NO life-prolonging interventions, and we completed a new MOL:ST form to that effect. In light of this decision, and her advanced pulmonary disease, she is eligible for enrolment in hospice, which would allow her to get nursing care at home, communication between the nurse and her PCP to obviate the need for difficult trips to his office, monitoring of her O2 use and medications, assistance when her oxygen tanks or oximetry seem askew, durable medical equipment as needed at home, etc. The patient has to quit smoking by November 29, when [facility] will adopt a strict no smoking policy, and she already has nicotine patches and gum and inhalers. The patient has some diastolic dysfunction on her last ECHO of November 2016, but her global left ventricular function is good, with an EF of 55-60%, so I do not feel that CHF is a comorbid condition in this patient. Her primary hospice diagnosis would be chronic respiratory failure, and her secondary hypercarbia/hypoxia. She should be referred to hospice upon her discharge from the hospital. Thanks for requesting the consult. - Plan Consult Plan (MU): Hospice - Time On Unit Date of Evaluation: 09/20/17 Hospice Consult Time in: 10:20 Hospice Consult Time Out: 11:15 Hospice Consult Time Total: 55 > 50% of Time Spend In Counseling or Coordinating Care: Yes
[2017-09-20] MEDS: methylPREDNISolone SOD 40 MG* 1 ML VIAL IV SCH (13:13)
[2017-09-20] MEDS ORDERED: Levalbuterol 1.25MG/0.5ML NEB INH PRN (13:45)
--- NOTE | 2017-09-20 15:00 | PN ---
Subjective Date of Service: 09/20/17 Interval History: Patient seen and examined at bedside. Denies fever, chills, chest discomfort, N/ V/D. Shortness of breath is improving, but not yet to baseline. Pt has been able to be weaned from 20 L down to 10 L via NC. Tele: Sinus rhythm, rate 60-90's with PVCs. Family History: Unchanged from Admission Social History: Unchanged from Admission Past Medical History: Unchanged from Admission Objective Active Medications: Acetaminophen (Tylenol Tab*) 650 mg PO Q4H PRN Reason: FEVER/PAIN Al Hydrox/Mg Hydrox/Simethicone (Maalox Plus*) 30 ml PO Q6H PRN Reason: INDIGESTION Atorvastatin Calcium (Lipitor*) 40 mg PO BEDTIME [facility] Bumetanide (Bumex Tab*) 4 mg PO 0800,1600 [facility] Citalopram Hydrobromide (Celexa Tab*) 20 mg PO DAILY [facility] Device (Nicotine Mouth Piece*) 1 each INH .USE WITH NICOTROL PRN Reason: CRAVING Dextrose (D50w Syringe 50 Ml*) 12.5 gm IV PUSH .FOR FS < 60 - SS PRN Reason: FS < 60 Diltiazem HCl (Cardizem Cd Cap*) 120 mg PO DAILY [facility] Ferrous Sulfate (Ferrous Sulfate Tab*) 325 mg PO BID [facility] Formoterol Fumarate (Perforomist Neb.Soln*(Nf)) 20 mcg INH BID [facility] Gabapentin (Neurontin Cap(*)) 300 mg PO TID PRN Reason: PAIN Glipizide (Glucotrol Xl*) 2.5 mg PO QAM [facility] Azithromycin 500 mg/ Sodium (Chloride) 250 mls @ 250 mls/hr IVPB Q24H [facility] Insulin Human Lispro (Humalog*) 0 units SUBCUT AC [facility] Levalbuterol HCl (Xopenex 1.25 Mg/0.5 Ml Neb.Zaria*) 1.25 mg INH Q6H PRN Reason: SOB/WHEEZING Magnesium Hydroxide (Milk Of Magnesia Liq*) 30 ml PO Q4H PRN Reason: CONSTIPATION Metformin HCl (Glucophage*) 500 mg PO BID WITH MEALS [facility] Methylprednisolone Sodium Succinate (Solu-Medrol 40 Mg) 40 mg IV 0000,1200 [facility] Mometasone Furoate/Formoterol Fumar (Dulera 200/5 Mdi*) 2 puff INH QAM [facility] Nicotine (Nicotine Inhaler*) 10 mg INH Q2H PRN Reason: CRAVING Nicotine (Nicotine Patch 14 Mg/24 Hr*) 1 patch TRANSDERM DAILY [facility] Omeprazole (Prilosec Cap*) 20 mg PO DAILY@0600 [facility] Pharmacy Profile Note (Nicotine Patch Removal Note*) 1 note FOLLOW UP 2100 [facility] Rivaroxaban (Xarelto(*)) 20 mg PO DAILY@1700 [facility] Tiotropium [place] (Spiriva Cap.Inh*) 1 cap INH DAILY [facility] Vital Signs - 8 hr 09/20/17 09/20/17 09/20/17 07:00 07:08 07:28 Temperature 98.4 F Pulse Rate 109 94 Respiratory 20 21 Rate Blood Pressure 129/62 (mmHg) O2 Sat by Pulse 93 95 Oximetry 09/20/17 09/20/17 09/20/17 08:00 08:01 09:00 Temperature Pulse Rate 80 84 91 Respiratory 24 17 17 Rate Blood Pressure 122/64 (mmHg) O2 Sat by Pulse 98 98 92 Oximetry 09/20/17 09/20/17 09/20/17 09:01 10:00 10:01 Temperature Pulse Rate 95 87 102 Respiratory 31 24 24 Rate Blood Pressure 129/66 114/71 (mmHg) O2 Sat by Pulse 92 94 94 Oximetry 09/20/17 09/20/17 09/20/17 11:00 12:00 13:00 Temperature Pulse Rate 73 90 98 Respiratory 20 21 29 Rate Blood Pressure 124/67 118/68 119/74 (mmHg) O2 Sat by Pulse 94 95 95 Oximetry 09/20/17 14:00 Temperature Pulse Rate 106 Respiratory 27 Rate Blood Pressure 135/77 (mmHg) O2 Sat by Pulse 91 Oximetry Oxygen Devices in Use Now: High Flow Nasal Cannula - 10L Appearance: NAD, laying in bed Ears/Nose/Mouth/Throat: Mucous Membranes Moist Respiratory: Symmetrical Chest Expansion and Respiratory Effort, Clear to Auscultation Cardiovascular: NL Sounds; No Murmurs; No JVD, RRR Abdominal: NL Sounds; No Tenderness; No Distention Extremities: - - Bilateral LE edema Skin: No Rash or Ulcers Neurological: Alert and Oriented x 3, NL Muscle Strength and Tone Lines/Tubes/Other Access: Clean, Dry and Intact Peripheral IV - site benign Nutrition: Taking PO's Result Diagrams: 09/20/17 05:49 09/20/17 05:49 Microbiology and Other Data: Microbiology 09/18/17 23:20 Nasal Screen MRSA (PCR)([facility]) - Final Nasal Mrsa Not Detected 09/18/17 23:45 Influenza Types A,B Antigen (GIOVANNI) - Final Nasal Specimen received for Influenza A/B Molecular testing Assess/Plan/Problems-Billing Assessment: Ms. Sabillon is a 72 yo female with PMH significant for COPD, chronic hypercarbic/ hypoxic respiratory failure, DM, HF, P Afib, KEVON, depression, and obesity who presented to the emergency room with complaints of shortness of breath. - Patient Problems (1) COPD exacerbation Code(s): J44.1 - CHRONIC OBSTRUCTIVE PULMONARY DISEASE W (ACUTE) EXACERBATION SNOMED Code(s): 070880265800970 Comment: - Slowly Improving - Continues to require increased amount of O2 - Continue steroids (change to PO in AM), azithromycin, inhalers and nebs (2) Diastolic heart failure Code(s): I50.30 - UNSPECIFIED DIASTOLIC (CONGESTIVE) HEART FAILURE SNOMED Code (s): 246861157 Comment: - Suspect mild CHF exacerbation - Continue daily weights and strict I+O's - Continue Bumex, ASA, and antihypertensives (3) Chronic hypercapnic respiratory failure Comment: - Acute on chronic - With acute on chronic hypoxic respiratory failure - Pt refuses BIPAP/CPAP at home. - Avoid narcotics, as she has had issues with retention after narcotics on prior hospitalizations (4) Type II diabetes mellitus Comment: - Glucose 140-190's - Continue metformin, glipizide, and Lispro SS (5) Afib Code(s): I48.91 - UNSPECIFIED ATRIAL FIBRILLATION SNOMED Code(s): 08161123 Comment: - In sinus rhythm, rate controlled - Continue xarelto and diltazem (6) Depression Code(s): F32.9 - MAJOR DEPRESSIVE DISORDER, SINGLE EPISODE, UNSPECIFIED SNOMED Code(s): 69706784 Comment: - Continue citalopram (Celexa) 20 mg PO DAILY (7) Iron deficiency anemia Code(s): D50.9 - IRON DEFICIENCY ANEMIA, UNSPECIFIED SNOMED Code(s): 70611099 Comment: - Noted - HH down from baseline - Continue ferrous sulfate - Will check a stool for occult blood and trend HH (8) Morbid obesity with BMI of 45.0-49.9, adult Code(s): E66.01 - MORBID (SEVERE) OBESITY DUE TO EXCESS CALORIES; Z68.42 - BODY MASS INDEX (BMI) 45.0-49.9, ADULT SNOMED Code(s): 968943565 Comment: - noted (9) KEVON (obstructive sleep apnea) Code(s): G47.33 - OBSTRUCTIVE SLEEP APNEA (ADULT) (PEDIATRIC) SNOMED Code(s): 38847204 Comment: - Non-compliant with CPAP (10) HLD (hyperlipidemia) Code(s): E78.5 - HYPERLIPIDEMIA, UNSPECIFIED SNOMED Code(s): 58656509 Comment: - Continue atorvastatin (11) Tobacco abuse Code(s): Z72.0 - TOBACCO USE SNOMED Code(s): 713995447 Comment: - Pt again advised to quit smoking and avoid second hand smoke - Nicotine replacement available (12) DVT prophylaxis Code(s): DQI7936 - SNOMED Code(s): 115016026 Comment: - Continue xarelto (13) DNR (do not resuscitate) Status and Disposition: Inpatient. Discharge to home when medically stable.
[2017-09-20] MEDS: Rivaroxaban TAB(*) 20 MG TAB PO SCH (16:50)
[2017-09-20] MEDS: Atorvastatin* 40 MG TAB PO SCH (20:21)
[2017-09-20] MEDS: Nicotine Patch Removal NOTE FOLLOW UP SCH (20:22)
[2017-09-20] MEDS: traZODone TAB* 100 MG PO PRN (22:26)
[2017-09-21] MEDS: Azithromycin IV(*) 500 MG in NS 0.9% 250 ML* 250 ML IVPB SCH (00:06)
[2017-09-21] MEDS: Omeprazole CAP* 20 MG PO SCH (05:40)
[2017-09-21] MEDS: Insulin LISPRO* 1 UNITS UNIT SUBCUT SCH ×3 (09:01→16:55)
[2017-09-21] MEDS: Tiotropium CAP.INH* CAP.INH/18 MCG (USE ORDER SET !) INH SCH (09:16)
[2017-09-21] MEDS: Mometasone/Formoter 200/5 MDI INH SCH (09:16)
[2017-09-21] MEDS: CMCS: Formoterol 20 MCG/2ML NEB (NF) 10 MCG/ML NEB.SOLN INH SCH ×2 (09:16→19:41)
[2017-09-21] MEDS: glipiZIDE TAB.XL* 2.5 MG PO SCH (09:29)
[2017-09-21] MEDS: Citalopram TAB* 20 MG PO SCH (09:29)
[2017-09-21] MEDS: metFORMIN* 500 MG TAB PO SCH ×2 (09:29→17:03)
[2017-09-21] MEDS: Bumetanide TAB* 2 MG PO SCH ×2 (09:29→17:03)
[2017-09-21] MEDS: Diltiazem CD CAP* 120 MG PO SCH (09:29)
[2017-09-21] MEDS: Nicotine PATCH 14 MG/24 HR* PATCH TRANSDERM SCH (09:30)
[2017-09-21] MEDS: predniSONE TAB* 50 MG PO SCH (09:30)
[2017-09-21] MEDS: Ferrous Sulfate TAB* 325 MG PO SCH ×2 (09:34→20:30)
--- NOTE | 2017-09-21 12:52 | PN ---
Subjective Date of Service: 09/21/17 Interval History: Patient seen and examined at bedside. Denies fever, chills, chest discomfort, N/ V/D. Pt states that her breathing continues to improved and her shortness of breath is almost back to her baseline. She has decided that she would like to go home with Hospice services. Family History: Unchanged from Admission Social History: Unchanged from Admission Past Medical History: Unchanged from Admission Objective Active Medications: Acetaminophen (Tylenol Tab*) 650 mg PO Q4H PRN Reason: FEVER/PAIN Al Hydrox/Mg Hydrox/Simethicone (Maalox Plus*) 30 ml PO Q6H PRN Reason: INDIGESTION Atorvastatin Calcium (Lipitor*) 40 mg PO BEDTIME [facility] Bumetanide (Bumex Tab*) 4 mg PO 0800,1600 [facility] Citalopram Hydrobromide (Celexa Tab*) 20 mg PO DAILY [facility] Device (Nicotine Mouth Piece*) 1 each INH .USE WITH NICOTROL PRN Reason: CRAVING Dextrose (D50w Syringe 50 Ml*) 12.5 gm IV PUSH .FOR FS < 60 - SS PRN Reason: FS < 60 Diltiazem HCl (Cardizem Cd Cap*) 120 mg PO DAILY [facility] Ferrous Sulfate (Ferrous Sulfate Tab*) 325 mg PO BID [facility] Formoterol Fumarate (Perforomist Neb.Soln*(Nf)) 20 mcg INH BID [facility] Gabapentin (Neurontin Cap(*)) 300 mg PO TID PRN Reason: PAIN Glipizide (Glucotrol Xl*) 2.5 mg PO QAM [facility] Azithromycin 500 mg/ Sodium (Chloride) 250 mls @ 250 mls/hr IVPB Q24H [facility] Insulin Human Lispro (Humalog*) 0 units SUBCUT AC [facility] Levalbuterol HCl (Xopenex 1.25 Mg/0.5 Ml Neb.Zaria*) 1.25 mg INH Q6H PRN Reason: SOB/WHEEZING Magnesium Hydroxide (Milk Of Magnesia Liq*) 30 ml PO Q4H PRN Reason: CONSTIPATION Metformin HCl (Glucophage*) 500 mg PO BID WITH MEALS [facility] Mometasone Furoate/Formoterol Fumar (Dulera 200/5 Mdi*) 2 puff INH QAM [facility] Nicotine (Nicotine Inhaler*) 10 mg INH Q2H PRN Reason: CRAVING Nicotine (Nicotine Patch 14 Mg/24 Hr*) 1 patch TRANSDERM DAILY [facility] Omeprazole (Prilosec Cap*) 20 mg PO DAILY@0600 [facility] Pharmacy Profile Note (Nicotine Patch Removal Note*) 1 note FOLLOW UP 2100 [facility] Prednisone (Deltasone Tab*) 50 mg PO DAILY [facility] Rivaroxaban (Xarelto(*)) 20 mg PO DAILY@1700 [facility] Tiotropium [place] (Spiriva Cap.Inh*) 1 cap INH DAILY [facility] Trazodone HCl (Desyrel Tab*) 100 mg PO BEDTIME PRN Reason: INSOMNIA Vital Signs - 8 hr 09/21/17 09/21/17 09/21/17 07:25 08:35 11:57 Temperature 97.9 F Pulse Rate 66 Respiratory 20 Rate Blood Pressure 123/42 118/76 (mmHg) O2 Sat by Pulse 100 90 Oximetry Oxygen Devices in Use Now: Nasal Cannula - 4.5 L Appearance: NAD, laying in bed Ears/Nose/Mouth/Throat: Mucous Membranes Moist Respiratory: Symmetrical Chest Expansion and Respiratory Effort, Clear to Auscultation - , diminished. Few exp wheezes heard Cardiovascular: NL Sounds; No Murmurs; No JVD, RRR Abdominal: NL Sounds; No Tenderness; No Distention Extremities: - - Bilateral LE edema. Neurological: Alert and Oriented x 3, NL Muscle Strength and Tone Lines/Tubes/Other Access: Clean, Dry and Intact Peripheral IV - site benign Nutrition: Taking PO's Result Diagrams: 09/20/17 05:49 09/20/17 05:49 Microbiology and Other Data: Microbiology 09/18/17 23:20 Nasal Screen MRSA (PCR)(GIOVANNI) - Final Nasal Mrsa Not Detected 09/18/17 23:45 Influenza Types A,B Antigen (GIOVANNI) - Final Nasal Specimen received for Influenza A/B Molecular testing Assess/Plan/Problems-Billing Assessment: Ms. Sabillon is a 72 yo female with PMH significant for COPD, chronic hypercarbic/ hypoxic respiratory failure, DM, HF, P Afib, KEVON, depression, and obesity who presented to the emergency room with complaints of shortness of breath. - Patient Problems (1) COPD exacerbation Code(s): J44.1 - CHRONIC OBSTRUCTIVE PULMONARY DISEASE W (ACUTE) EXACERBATION SNOMED Code(s): 879368141683536 Comment: - Slowly Improving - Continues to require increased amount of O2 (home 2L at rest and 4L with ambulation) - Continue steroids, azithromycin (change to PO), inhalers and nebs (2) Diastolic heart failure Code(s): I50.30 - UNSPECIFIED DIASTOLIC (CONGESTIVE) HEART FAILURE SNOMED Code (s): 832882395 Comment: - Suspect mild CHF exacerbation at admission - Continue daily weights and strict I+O's - Continue Bumex, ASA, and antihypertensives (3) Chronic hypercapnic respiratory failure Comment: - Acute on chronic - With acute on chronic hypoxic respiratory failure, improving - Pt refuses BIPAP/CPAP at home. - Avoid narcotics, as she has had issues with retention after narcotics on prior hospitalizations (4) Type II diabetes mellitus Comment: - Glucose 90-150's - Continue metformin, glipizide, and Lispro SS (5) Afib Code(s): I48.91 - UNSPECIFIED ATRIAL FIBRILLATION SNOMED Code(s): 28781680 Comment: - In sinus rhythm, rate controlled - Continue xarelto and diltazem (6) Depression Code(s): F32.9 - MAJOR DEPRESSIVE DISORDER, SINGLE EPISODE, UNSPECIFIED SNOMED Code(s): 14271875 Comment: - Continue citalopram (Celexa) 20 mg PO DAILY (7) Iron deficiency anemia Code(s): D50.9 - IRON DEFICIENCY ANEMIA, UNSPECIFIED SNOMED Code(s): 59543875 Comment: - Noted - HH down from baseline - Continue ferrous sulfate - Will check a stool for occult blood and trend HH (8) Morbid obesity with BMI of 45.0-49.9, adult Code(s): E66.01 - MORBID (SEVERE) OBESITY DUE TO EXCESS CALORIES; Z68.42 - BODY MASS INDEX (BMI) 45.0-49.9, ADULT SNOMED Code(s): 223022365 Comment: - noted (9) KEVON (obstructive sleep apnea) Code(s): G47.33 - OBSTRUCTIVE SLEEP APNEA (ADULT) (PEDIATRIC) SNOMED Code(s): 92576828 Comment: - Non-compliant with CPAP (10) HLD (hyperlipidemia) Code(s): E78.5 - HYPERLIPIDEMIA, UNSPECIFIED SNOMED Code(s): 52185345 Comment: - Continue atorvastatin (11) Tobacco abuse Code(s): Z72.0 - TOBACCO USE SNOMED Code(s): 576006066 Comment: - Pt again advised to quit smoking and avoid second hand smoke - Nicotine replacement available (12) DVT prophylaxis Code(s): PFJ8605 - SNOMED Code(s): 641396444 Comment: - Continue xarelto (13) DNR (do not resuscitate) Status and Disposition: Inpatient. Discharge to home when medically stable. Plan for discharge to home on Hospice services, will be ready for discharge to home in 1-2days.
[2017-09-21] MEDS: Rivaroxaban TAB(*) 20 MG TAB PO SCH (17:04)
[2017-09-21] MEDS: Nicotine Patch Removal NOTE FOLLOW UP SCH (20:30)
[2017-09-21] MEDS: Atorvastatin* 40 MG TAB PO SCH (20:30)
[2017-09-21] MEDS: traZODone TAB* 100 MG PO PRN (22:29)
[2017-09-22] MEDS: Omeprazole CAP* 20 MG PO SCH (05:14)
[2017-09-22 06:05] LABS: ABS Basophils 0 10^3/ul (0-0.2); ABS Eosinophils 0.1 10^3/ul (0-0.6); ABS Lymphocytes 1.2 10^3/ul (1.0-4.8); ABS Monocytes 0.9 10^3/ul (0-0.8); ABS Neutrophils 6.8 10^3/ul (1.5-7.7); ABS Nucleated RBC 0 10^3/ul; Eosinophil % 0.8 % (0-6); Hematocrit 31 % (35-47); Hemoglobin 9.3 g/dl (12.0-16.0); Lymphocyte % 13.3 % (25-47); Mean Corpuscular HGB Conc 30 g/dl (31-36); Mean Corpuscular Hemoglobin 25 pg (27-31); Mean Corpuscular Volume 84 fL (80-97); Mean Platelet Volume 7 um3 (7.4-10.4); Nucleated Red Blood Cells % 0.5; Platelet Count 266 10^3/ul (150-450); Red Blood Count 3.75 10^6/ul (4.0-5.4); Red Cell Distribution Width 17 % (10.5-15); White Blood Count 8.9 10^3/ul (3.5-10.8)
[2017-09-22 06:14] LABS: EGFR Non-African American 59.6 (>60)
[2017-09-22] MEDS: Insulin LISPRO* 1 UNITS UNIT SUBCUT SCH ×2 (07:34→12:47)
[2017-09-22 07:59] VITALS: BP 118/68
[2017-09-22] MEDS: Bumetanide TAB* 2 MG PO SCH ×2 (08:59→17:26)
[2017-09-22] MEDS: metFORMIN* 500 MG TAB PO SCH ×2 (08:59→17:26)
[2017-09-22] MEDS: Ferrous Sulfate TAB* 325 MG PO SCH (08:59)
[2017-09-22] MEDS: Citalopram TAB* 20 MG PO SCH (08:59)
[2017-09-22] MEDS: glipiZIDE TAB.XL* 2.5 MG PO SCH (08:59)
[2017-09-22] MEDS: predniSONE TAB* 50 MG PO SCH (09:00)
[2017-09-22] MEDS ORDERED: Azithromycin TAB* 250 MG PO SCH (09:00)
[2017-09-22] MEDS: Diltiazem CD CAP* 120 MG PO SCH (09:00)
[2017-09-22] MEDS: Nicotine PATCH 14 MG/24 HR* PATCH TRANSDERM SCH (09:01)
[2017-09-22] MEDS: Mometasone/Formoter 200/5 MDI INH SCH (09:55)
[2017-09-22] MEDS: CMCS: Formoterol 20 MCG/2ML NEB (NF) 10 MCG/ML NEB.SOLN INH SCH (09:55)
[2017-09-22] MEDS: Tiotropium CAP.INH* CAP.INH/18 MCG (USE ORDER SET !) INH SCH (10:55)
[2017-09-22] MEDS: Rivaroxaban TAB(*) 20 MG TAB PO SCH (17:26)
--- NOTE | 2017-09-23 04:45 | DS ---
CC: Dr. Rhodes * DISCHARGE SUMMARY: DATE OF ADMISSION: 09/18/17 DATE OF DISCHARGE: 09/22/17 PRIMARY CARE PROVIDER: Dr. Rhodes. ATTENDING FOR THIS HOSPITALIZATION: Dr. Jessica Rich.* (DICTATED BY PEDRO SERRANO NP) HOSPITAL COURSE: This is a 72-year-old female patient, who presented to the emergency department on 09/18/17 with complaint of increasing shortness of breath and some lower extremity edema. The patient has been hospitalized 5 times in the past 9 months for similar complaints. The patient does have longstanding history of end-stage COPD, CHF, diabetes, anemia, atrial fibrillation, GI bleeding, obstructive sleep apnea in the past, also hyperlipidemia. The patient stated prior to this hospitalization, she had progressive worsening shortness of breath. She is on chronic oxygen therapy at home and has chronic hypoxic respiratory failure stated that when she was titrating her oxygen, it was not helping, so she was admitted for acute exacerbation of COPD with heart failure and her other comorbidities. Because she is a high utilizer at this point, it triggered a consult to our palliative team while she was here for her shortness of breath. She was seen by Dr. Candy Charles, who discussed the possibility of hospice with the patient. She does live at [facility] by herself, has difficulty getting out to see her doctors, and again has had multiple admissions for the same. It was determined by Dr. Charles that she does meet criteria for hospice for her end- stage pulmonary disease. As such, the patient will be admitted to hospice services once she is discharged to home. PHYSICAL EXAMINATION: Vital Signs: Blood pressure 118/68, heart rate 71, respiratory rate 16, satting at 96% to 98% on 4 L nasal cannula, temperature is 97.9. HEENT: The patient is atraumatic and normocephalic. PERRLA with non- icteric sclerae. Neck: Supple, nontender. No JVD noted. No carotid bruit auscultated. Cardiovascular: Rate is in the 70s. She is irregular. No murmurs, gallops, or rubs noted. Lungs: She has very diminished breath sounds through-out, difficulty with expiration. She does have an audible bilateral wheeze and again greatly diminished bases, difficulty moving a good amount of air. Abdomen: Soft, nontender, and nondistended. Obese. Positive bowel sounds in all 4 quadrants. Musculoskeletal: There is no clubbing and no cyanosis. She does have bilateral lower extremity edema, which is at her baseline. Neurologic: She is grossly intact with no focal deficits. She is alert and oriented x3. LABORATORY DATA: Today, WBC 8.9, RBC 3.75, hemoglobin 9.3, hematocrit 31, and platelets are 266. Sodium 141, potassium 4.2, chloride 90, CO2 of 46, BUN 39, creatinine 0.93, GFR is 59.6, glucose range has been between 97 and 150, calcium is 9.1. Troponin at admission was negative at 0.01. DISCHARGE PLAN: The patient will be discharged home back to [facility] She has been counseled extensively on hospice benefit that she is electing to enrol in when she gets back home. I had a conversation with her daughter, Kyra, and discussed the same. She is happy with the arrangement and feels that her mother does need the advanced care right now. She was also counseled on her smoking cessation. Of significant note, [facility] where she lives will be a smoke-free environment as it made her first. So, hopefully, the patient will currently engage in cessation and also continue with CPAP and other respiratory recommendations to keep her condition as stable as possible. The patient was discharged in stable condition in the care of her daughter, Kyra. Again, I answered all questions for the patient and for the daughter. DISCHARGE MEDICATIONS: Her medications at the time of discharge include: 1. Trazodone 50 mg 1 to 2 tablets as needed p.r.n. insomnia. 2. Prednisone 10 mg daily. 3. Metformin 500 mg 2 times a day. 4. Glipizide 2.5 mg in the morning. 5. Diltiazem 120 mg daily. 6. Benadryl 25 mg q.6 hours as needed. 7. Triamcinolone ointment 1 application 2 times a day. 8. Spiriva 1 cap inhaled daily. 9. Zocor 20 mg in the evening. 10. Xarelto 20 mg daily. 11. Omeprazole 20 mg daily. 12. Nystatin powder 3 times a day as needed. 13. Dulera 200/5 metered dose inhaler 2 puffs in the morning. 14. Xopenex inhaler 2 puffs q.4 hours as needed. 15. Gabapentin 300 mg 3 times a day. 16. Formoterol nebulizer 2 times a day. 17. Fluconazole 100 mg tablets 400 mg daily. 18. Ferrous sulfate 325 mg 2 times a day. 19. Celexa 20 mg daily. 20. Bumex 4 mg 2 times a day. FOLLOWUP: The patient was instructed to follow up with Dr. Rhodes, her primary care physician, and also with the hospice team who will likely get her enrolled in that program in the next 48 hours. PEDRO SERRANO, VIET [id number]/CPS #: [id number] [facility] CENTERCharles
== END 2017-09-22 17:40 | disposition hospice, home (50) | DRG 190 ==
LOC: ED 19:18 → ICU 22:34 → MED 09-20 17:04
PROVIDERS: ADMIT Hospitalist; ATTEND Hospitalist
DX: J44.1 Chronic obstructive pulmonary disease with (acute) exacerbation (principal); J96.21 Acute and chronic respiratory failure with hypoxia; I48.91 Unspecified atrial fibrillation; I11.0 Hypertensive heart disease with heart failure; E66.01 Morbid (severe) obesity due to excess calories; I50.32 Chronic diastolic (congestive) heart failure; E11.9 Type 2 diabetes mellitus without complications; D50.9 Iron deficiency anemia, unspecified; J96.22 Acute and chronic respiratory failure with hypercapnia; Z66 Do not resuscitate; I25.10 Atherosclerotic heart disease of native coronary artery without angina pectoris; M19.90 Unspecified osteoarthritis, unspecified site; F41.9 Anxiety disorder, unspecified; F32.9 Major depressive disorder, single episode, unspecified; Z96.652 Presence of left artificial knee joint; E78.5 Hyperlipidemia, unspecified; F17.210 Nicotine dependence, cigarettes, uncomplicated; G47.33 Obstructive sleep apnea (adult) (pediatric); Z79.52 Long term (current) use of systemic steroids; Z79.01 Long term (current) use of anticoagulants; Z80.9 Family history of malignant neoplasm, unspecified; Z99.81 Dependence on supplemental oxygen; Z88.8 Allergy status to other drugs, medicaments and biological substances; Z86.14 Personal history of Methicillin resistant Staphylococcus aureus infection; Z82.49 Family history of ischemic heart disease and other diseases of the circulatory system; Z68.42 Body mass index [BMI] 45.0-49.9, adult
CPT/HCPCS: 36415; 36600; 71045; 80048; 80053; 81003; 81015; 82803; 83605; 83735; 83880; 84484; 85025; 85610; 87040; 87086; 87502; 87641; 93005; 94640; 94760; 99285; 99406; A9270-GY; J0456; J1940; J2920; J7512